=== PATIENT | female | born 1945 | race Caucasian/White ===

== ENCOUNTER 2024-11-30 22:05 | Inpatient (IN) ==
[2024-11-30] MEDS: LABETALOL HCL IV 5 MG/ML 20ML IV STA (22:48)
[2024-11-30 23:04] LABS: Basophils # (auto) 0.04 K/uL (0.00-0.20); Basophils % (auto) 0.5 %; Eosinophils # (auto) 0.14 K/uL (0.00-0.50); Eosinophils % (auto) 1.7 %; Hematocrit (blood only) 38.2 % (37.0-47.0); Hemoglobin 12.9 g/dl (12.0-16.0); Immature Granulocytes # (auto) 0.03 K/uL (0.01-0.20); Immature Granulocytes % (auto) 0.4 %; Lymphocytes # (auto) 1.93 K/uL (1.20-3.40); Lymphocytes % (auto) 23.5 %; Mean Corpuscular Hemoglobin 29.9 pg (25.0-34.0); Mean Corpuscular Hgb Conc 33.8 g/dL (32.0-36.0); Mean Corpuscular Volume 88.4 fL (80.0-100.0); Mean Platelet Volume 9.5 fL (9.4-12.4); Monocytes # (auto) 0.79 K/uL (0.11-0.59); Monocytes % (auto) 9.6 %; Neutrophils % (auto) 64.3 %; Platelet Count 335 K/uL (130-400); RDW Standard Deviation 42.5 fL (36.4-46.3); Red Blood Count 4.32 M/uL (4.20-5.40); White Blood Count 8.23 K/ul (4.8-10.8)
[2024-11-30 23:23] LABS: Calcium 10.3 mg/dl (8.6-10.3); Creatinine Clr Calc Pharmacy 36.3 ml/min
--- NOTE | 2024-11-30 23:27 | CT Scan Report ---
Exam(s): CT HEAD Without Contrast EXAM: CT Head Without Intravenous Contrast CLINICAL HISTORY: Reason for exam: de la cruz. TECHNIQUE: Axial computed tomography images of the head/brain without intravenous contrast. CTDI is 34 mGy and DLP is 624 mGy-cm. Automated exposure control was utilized for the study. A dose lowering technique was utilized adhering to the principles of ALARA. COMPARISON: None FINDINGS: Brain: No acute infarct or hemorrhage identified. No extra-axial fluid collection. No mass effect or midline shift. Scattered areas of hypoattenuation in the supratentorial white matter likely represent chronic small vessel ischemic changes. Ventricles and sulci: Prominence of the ventricles and sulci is likely secondary to cerebral volume loss. Bones: Degenerative changes of the temporomandibular joints. No bony lesion or acute fracture. Subcutaneous tissues: Normal. Sinuses: Normal. No air-fluid levels or mucosal thickening. Mastoid air cells: Normal. Orbits: Bilateral lens implants. Other: Atherosclerotic calcifications in the intracranial vasculature. IMPRESSION: 1. No acute intracranial abnormality. 2. Chronic small vessel ischemic changes and cerebral volume loss. Electronically signed by: Natalie Rushing M.D. 11/30/24 23:26 PM
[2024-11-30 23:30] LABS: Troponin I High Sensitivity 7.9 pg/ml (0-14)
[2024-11-30 23:33] LABS: INR 0.9 (0.9-1.1); Partial Thromboplastin Time 26 Seconds (21-31); Prothrombin Time 10.1 Seconds (9.0-12.0)
[2024-11-30] MEDS: carvediloL 6.25 MG TAB PO STA (23:43)
[2024-12-01] MEDS: LABETALOL HCL IV 5 MG/ML 20ML IV STA (00:14)
--- NOTE | 2024-12-01 00:52 | XRay Report ---
Exam(s): XR CXR 1 VIEW EXAM: XR Chest, 1 View CLINICAL HISTORY: Reason for exam: Chest pain, nonspecific. TECHNIQUE: Frontal view of the chest. COMPARISON: None FINDINGS: Hardware: None. Lungs/pleura: Normal. No focal consolidation. No pleural effusion or pneumothorax. Heart/mediastinum: Atherosclerotic changes of aorta. No cardiomegaly. Soft tissues: Unremarkable. Bones: No acute fracture. Upper abdomen: Normal. IMPRESSION: No acute disease identified. Electronically signed by: Natalie Rushing M.D. 12/01/24 00:51 AM
--- NOTE | 2024-12-01 01:22 | Emergency Department Note ---
History of Present Illness General Chief complaint: Hypertension Stated complaint: DIZZY,TINGLING,HTN Time Seen by Provider: 11/30/24 22:19 Source: family (Granddaughter who is a medic) History of Present Illness Provider complaint: Hypertension 79-year-old female presents emergency department for high blood pressure. Patient reports that earlier today she felt very dizzy and disoriented. She took her blood pressure and noticed it was very elevated. Patient reports she has been compliant with her blood pressure medication but did not take her evening dose today. She denies any chest pain difficulty breathing nausea vomiting diarrhea abdominal pain hematuria dysuria melena hematochezia. Home Medications Medication Instructions Recorded Confirmed Type Lactobacillus rhamnosus-Bifidobac. 1 cap PO DAILY 12/01/24 12/01/24 History animalis 3 billion cell capsule ([employer]) ascorbate calcium (vitamin C) 500 1,000 mg PO DAILY 12/01/24 12/01/24 History mg capsule aspirin 81 mg chewable tablet 81 mg PO DAILY 12/01/24 12/01/24 History benazepril 40 mg tablet 40 mg PO QAM 12/01/24 12/01/24 History calcium 600 mg (as carbonate)-vit 1 tab PO BID 12/01/24 12/01/24 History D3 20 mcg (800 unit) chewable tablet (Caltrate plus D) carvedilol 6.25 mg tablet 6.25 mg PO BID 12/01/24 12/01/24 History coenzyme Q10 100 mg capsule 100 mg PO DAILY 12/01/24 12/01/24 History (CoQ-10) cyanocobalamin (vitamin B-12) 1,000 mcg PO DAILY 12/01/24 12/01/24 History 1,000 mcg tablet (Vitamin B-12) dicyclomine 10 mg capsule 10 mg PO TID PRN cramping, 12/01/24 12/01/24 History diarrhea, abdominal pain elderberry fruit 200 mg capsule 500 mg PO DAILY 12/01/24 12/01/24 History ezetimibe 10 mg tablet 10 mg PO DAILY 12/01/24 12/01/24 History fenofibrate nanocrystallized 145 145 mg PO DAILY 12/01/24 12/01/24 History mg tablet fluticasone furoate 100 1 inh inhalation DAILY 12/01/24 12/01/24 History mcg-vilanterol 25 mcg/dose inhalation powder (Breo Ellipta) glucosamine-chondroitin 250 mg-200 1 tab PO DAILY 12/01/24 12/01/24 History mg tablet (Osteo Bi-Flex) yklfxcgo-cybedob-fyqo-lutein tablet 1 tab PO QAM 12/01/24 12/01/24 History nifedipine 60 mg tablet,extended 60 mg PO DAILY 12/01/24 12/01/24 History release pantoprazole 40 mg tablet,delayed 40 mg PO DAILY 12/01/24 12/01/24 History release sertraline 100 mg tablet 150 mg PO DAILY 12/01/24 12/01/24 History Allergies Allergy/AdvReac Type Severity Reaction Status Date / Time amoxicillin AdvReac Mild Vomiting Verified 12/01/24 01:19 Past Med/Surg History Problem List (Updated 12/01/24 @ 01:22 by Yony Tan MD) Hypertensive urgency (Acute) Medical History No pertinent family history HLD (hyperlipidemia) HTN (hypertension) Surgical History No pertinent past surgical history Social History Smoking Status: Former smoker Preferred Language: Armenian Feels Safe at Home: Yes Physical Exam Vital Signs Vital Signs - 24 hr 11/30/24 22:06 11/30/24 22:19 11/30/24 22:32 Temperature 36.8 C Temperature Source Temporal Artery Scan Pulse Rate 97 H 88 Pulse Rate [Apical] 88 Pulse Rhythm Regular Pulse Rhythm [Apical] Regular Pulse Strength Normal Pulse Strength [Apical] Normal Respiratory Rate 17 22 Respiratory Effort / Characteristics Non-Labored Spontaneous Non-Labored Spontaneous Respiratory Depth Normal Normal Respiratory Pattern Regular Regular Blood Pressure 215/94 H Blood Pressure [Right Arm] 214/118 H Blood Pressure Mean 134 Blood Pressure Mean [Right Arm] 150 Blood Pressure Position Sitting Blood Pressure Position [Right Arm] Lying Pulse Oximetry 96 98 Oxygen Delivery Method Room Air Room Air Sepsis Recent Fever Within 48 Hours No Sepsis New/Unexplained Change in Mental Status N/A Sepsis Action Taken by Nursing No Action Required 11/30/24 22:42 11/30/24 22:48 11/30/24 23:15 Temperature Temperature Source Pulse Rate 78 78 Pulse Rate [Apical] 68 Pulse Rhythm Regular Pulse Rhythm [Apical] Pulse Strength Pulse Strength [Apical] Respiratory Rate 16 16 Respiratory Effort / Characteristics Respiratory Depth Respiratory Pattern Blood Pressure 173/120 H Blood Pressure [Right Arm] 199/97 H Blood Pressure Mean Blood Pressure Mean [Right Arm] 131 Blood Pressure Position Blood Pressure Position [Right Arm] Pulse Oximetry 94 97 Oxygen Delivery Method Room Air Room Air Sepsis Recent Fever Within 48 Hours Sepsis New/Unexplained Change in Mental Status Sepsis Action Taken by Nursing 11/30/24 23:30 12/01/24 00:00 12/01/24 00:14 Temperature Temperature Source Pulse Rate 69 Pulse Rate [Apical] 67 67 Pulse Rhythm Pulse Rhythm [Apical] Pulse Strength Pulse Strength [Apical] Respiratory Rate 16 16 Respiratory Effort / Characteristics Respiratory Depth Respiratory Pattern Blood Pressure 184/107 H Blood Pressure [Right Arm] 195/84 H 199/87 H Blood Pressure Mean Blood Pressure Mean [Right Arm] 121 124 Blood Pressure Position Blood Pressure Position [Right Arm] Pulse Oximetry 95 97 Oxygen Delivery Method Room Air Room Air Sepsis Recent Fever Within 48 Hours Sepsis New/Unexplained Change in Mental Status Sepsis Action Taken by Nursing 12/01/24 00:14 12/01/24 00:43 12/01/24 00:43 Temperature Temperature Source Pulse Rate 68 Pulse Rate [Apical] 70 68 Pulse Rhythm Pulse Rhythm [Apical] Pulse Strength Pulse Strength [Apical] Respiratory Rate 14 16 Respiratory Effort / Characteristics Respiratory Depth Respiratory Pattern Blood Pressure 167/77 H Blood Pressure [Right Arm] 184/107 H 167/77 H Blood Pressure Mean Blood Pressure Mean [Right Arm] 132 107 Blood Pressure Position Blood Pressure Position [Right Arm] Pulse Oximetry 98 97 Oxygen Delivery Method Room Air Room Air Sepsis Recent Fever Within 48 Hours Sepsis New/Unexplained Change in Mental Status Sepsis Action Taken by Nursing 12/01/24 01:00 Temperature Temperature Source Pulse Rate Pulse Rate [Apical] 69 Pulse Rhythm Pulse Rhythm [Apical] Pulse Strength Pulse Strength [Apical] Respiratory Rate 16 Respiratory Effort / Characteristics Respiratory Depth Respiratory Pattern Blood Pressure Blood Pressure [Right Arm] 164/69 H Blood Pressure Mean Blood Pressure Mean [Right Arm] 100 Blood Pressure Position Blood Pressure Position [Right Arm] Pulse Oximetry 97 Oxygen Delivery Method Room Air Sepsis Recent Fever Within 48 Hours Sepsis New/Unexplained Change in Mental Status Sepsis Action Taken by Nursing Physical Exam GENERAL: oriented to person, place, and time. appears well-developed and well- nourished. HENT: Exam performed. - Head: Normocephalic and atraumatic. EYES: Conjunctivae and EOM are normal. Right eye exhibits no discharge. Left eye exhibits no discharge. No scleral icterus. NECK: Normal range of motion. Neck supple. No JVD present. CV: Normal rate, regular rhythm, normal heart sounds and intact distal pulses. There is no peripheral edema. Palpable radial pulses bue. PULM/CHEST: Effort normal and breath sounds normal. No respiratory distress. No stridor. no wheezes. no rales. ABD: The abdomen is soft. There is no tenderness. NEURO: Motor and sensation grossly intact. SKIN: Skin is warm and dry. He is not diaphoretic. PSYCH: normal mood and affect. Behavior is normal. Judgment and thought content normal. Course Course 2219: The patient was evaluated in room C12. A complete history and physical exam was performed Cardiac monitoring: An order was placed for continuous cardiac monitoring. The monitor shows a rate of 80 with sinus rhythm interpreted by me Patient systolic blood pressure greater than 215. Patient did not take her evening beta-gisela. Labetalol 10 mg IV push ordered for the patient. 2330: Patient remains hypertensive. CT of the head is unremarkable. Patient's home dose of carvedilol ordered for the patient. 0015: Patient remains hypertensive and states " still feeling very fuzzy." Additional labetalol 10 mg IV push ordered for patient. 0019: Vital signs stable. Patient's blood pressure has normalized. Labs and imaging are unremarkable. Discussed the possibility of discharge the patient home with close outpatient follow-up versus inpatient observation for hypertensive urgency and after discussion with the patient and family at bedside the patient elected to be admitted to the hospital for observation. Will discuss with [facility] hospitalist team. Administered Medications Discontinued Medications Carvedilol (Carvedilol 6.25 Mg Tab) 6.25 mg PO NOW STA Stop: 11/30/24 23:28 Last Admin: 11/30/24 23:43 Dose: 6.25 mg Documented By: MERARY Labetalol HCl (Labetalol Hcl Iv 5 Mg/Ml 20ml) 10 mg IV NOW STA Stop: 11/30/24 22:43 Last Admin: 11/30/24 22:48 Dose: 10 mg Documented By: TRELL Labetalol HCl (Labetalol Hcl Iv 5 Mg/Ml 20ml) 10 mg IV NOW STA Stop: 11/30/24 23:53 Last Admin: 12/01/24 00:14 Dose: 10 mg Documented By: AN Medical Decision Making Laboratory Data Attestation: I reviewed the patient's lab results. 11/30/24 22:28 11/30/24 22:28 Lab Results 11/30/24 Range/Units 22:28 WBC 8.23 (4.8-10.8) K/ul RBC 4.32 (4.20-5.40) M/uL Hgb 12.9 (12.0-16.0) g/dl Hct 38.2 (37.0-47.0) % MCV 88.4 (80.0-100.0) fL MCH 29.9 (25.0-34.0) pg MCHC 33.8 (32.0-36.0) g/dL RDW Std Deviation 42.5 (36.4-46.3) fL RDW Coeff of [place] 13.0 (11.5-14.5) % Plt Count 335 (130-400) K/uL MPV 9.5 (9.4-12.4) fL Immature Gran % (Auto) 0.4 % Neut % (Auto) 64.3 % Lymph % (Auto) 23.5 % [place] % (Auto) 9.6 % Eos % (Auto) 1.7 % Baso % (Auto) 0.5 % Neut # (Auto) 5.30 (1.40-6.50) K/uL Lymph # (Auto) 1.93 (1.20-3.40) K/uL [place] # (Auto) 0.79 H (0.11-0.59) K/uL Eos # (Auto) 0.14 (0.00-0.50) K/uL Baso # (Auto) 0.04 (0.00-0.20) K/uL Immature Gran # (Auto) 0.03 (0.01-0.20) K/uL PT 10.1 (9.0-12.0) Seconds INR 0.9 (0.9-1.1) APTT 26 (21-31) Seconds PTT Ratio 1.0 Sodium 139 (136-145) mmol/L Potassium 4.0 (3.5-5.1) mmol/L Chloride 105 (98-107) mmol/L Carbon Dioxide 27 (21-32) mmol/L Anion Gap 7 (3-11) BUN 26 H (6-23) mg/dl Creatinine 1.18 (0.6-1.2) mg/dl Est Cr Clr Drug Dosing 36.3 ml/min eGFR 46.69 BUN/Creatinine Ratio 22.0 H (10-20) Glucose 104 H (70-99(Fasting)) mg/dl Calcium 10.3 (8.6-10.3) mg/dl Troponin I High Sens 7.9 (0-14) pg/ml Lipase 42 (11-82) U/L Imaging Data Attestation: I personally reviewed and interpreted this imaging study as follows: My Impression: Chest x-ray negative. Airway clear. No pneumothorax. No consolidation. No cardiomegaly or cephalization.. No free air under the diaphragm. No fractures of the skeletal structures. Radiologist's Impression: Chest X-Ray 11/30/24 22:42 Exam(s): XR CXR 1 VIEW EXAM: XR Chest, 1 View CLINICAL HISTORY: Reason for exam: Chest pain, nonspecific. TECHNIQUE: Frontal view of the chest. COMPARISON: None FINDINGS: Hardware: None. Lungs/pleura: Normal. No focal consolidation. No pleural effusion or pneumothorax. Heart/mediastinum: Atherosclerotic changes of aorta. No cardiomegaly. Soft tissues: Unremarkable. Bones: No acute fracture. Upper abdomen: Normal. IMPRESSION: No acute disease identified. Electronically signed by: Natalie Rushing M.D. 12/01/24 00:[address] 11/30/24 22:42 Exam(s): CT HEAD Without Contrast EXAM: CT Head Without Intravenous Contrast CLINICAL HISTORY: Reason for exam: de la cruz. TECHNIQUE: Axial computed tomography images of the head/brain without intravenous contrast. CTDI is 34 mGy and DLP is 624 mGy-cm. Automated exposure control was utilized for the study. A dose lowering technique was utilized adhering to the principles of ALARA. COMPARISON: None FINDINGS: Brain: No acute infarct or hemorrhage identified. No extra-axial fluid collection. No mass effect or midline shift. Scattered areas of hypoattenuation in the supratentorial white matter likely represent chronic small vessel ischemic changes. Ventricles and sulci: Prominence of the ventricles and sulci is likely secondary to cerebral volume loss. Bones: Degenerative changes of the temporomandibular joints. No bony lesion or acute fracture. Subcutaneous tissues: Normal. Sinuses: Normal. No air-fluid levels or mucosal thickening. Mastoid air cells: Normal. Orbits: Bilateral lens implants. Other: Atherosclerotic calcifications in the intracranial vasculature. IMPRESSION: 1. No acute intracranial abnormality. 2. Chronic small vessel ischemic changes and cerebral volume loss. Electronically signed by: Natalie Rushing M.D. 11/30/24 23:26 PM ECG Data Attestation: I personally reviewed and interpreted this ECG as follows: Rate (beats per minute): 84 Rhythm: + normal sinus ECG Intervals/blocks: + Normal QRS, + Normal MO and + Normal QT-c ECG ST segments: + Normal ST segments MDM Narrative 2219: The patient was evaluated in room C12. A complete history and physical exam was performed Cardiac monitoring: An order was placed for continuous cardiac monitoring. The monitor shows a rate of 80 with sinus rhythm interpreted by me Patient systolic blood pressure greater than 215. Patient did not take her evening beta-gisela. Labetalol 10 mg IV push ordered for the patient. 2330: Patient remains hypertensive. CT of the head is unremarkable. Patient's home dose of carvedilol ordered for the patient. 0015: Patient remains hypertensive and states " still feeling very fuzzy." Additional labetalol 10 mg IV push ordered for patient. 0019: Vital signs stable. Patient's blood pressure has normalized. Labs and imaging are unremarkable. Discussed the possibility of discharge the patient home with close outpatient follow-up versus inpatient observation for hypertensive urgency and after discussion with the patient and family at bedside the patient elected to be admitted to the hospital for observation. Will discuss with [facility] hospitalist team. Impression & Plan Hypertensive urgency Discharge Plan Visit Data Chief Complaint: Hypertension Stated Complaint: DIZZY,TINGLING,HTN ED Provider: Yony Tan Discharge Problem: Hypertensive urgency Patient Disposition: Being Evaluated by Hospitalist Condition: Good Forms Stand Alone Forms: [employer] Prescriptions Prescriptions: No Action carvedilol 6.25 mg Tablet 6.25 mg PO BID Rx Instructions: must administer with a meal/food aspirin 81 mg Tablet,Chewable 81 mg PO DAILY benazepril 40 mg Tablet 40 mg PO QAM dicyclomine 10 mg Capsule 10 mg PO TID PRN (Reason: cramping, diarrhea, abdominal pain) Centrum Silver Ultra Women's Tablet 1 tab PO QAM coenzyme Q10 [CoQ-10] 100 mg Capsule 100 mg PO DAILY Mignon-C 500 mg Capsule 1,000 mg PO DAILY Elderberry 200 mg Capsule 500 mg PO DAILY fluticasone furoate-vilanterol [Breo Ellipta] 100-25 mcg/dose Blister With Device 1 inh INHALATION DAILY Caltrate 600 plus D 600 mg-20 mcg (800 unit) Tablet,Chewable 1 tab PO BID sertraline 100 mg tablet 150 mg PO DAILY Rx Instructions: UNABLE TO VERIFY W/ PATIENT USED [employer] pantoprazole 40 mg tablet,delayed release (DR/EC) 40 mg PO DAILY Rx Instructions: UNABLE TO VERIFY W/ PATIENT USED [employer] nifedipine 60 mg tablet extended release 60 mg PO DAILY Rx Instructions: UNABLE TO VERIFY W/ PATIENT USED [employer] ezetimibe 10 mg tablet 10 mg PO DAILY Rx Instructions: UNABLE TO VERIFY W/ PATIENT USED [employer] fenofibrate nanocrystallized 145 mg tablet 145 mg PO DAILY Rx Instructions: UNABLE TO VERIFY W/ PATIENT USED [employer] cyanocobalamin (vitamin B-12) [Vitamin B-12] 1,000 mcg Tablet 1,000 mcg PO DAILY glucosamine-chondroitin [Osteo Bi-Flex] 250-200 mg Tablet 1 tab PO DAILY [employer] 3 billion cell Capsule 1 cap PO DAILY Referrals Referrals: Lisette Diana DO [Primary Care Provider] -
--- NOTE | 2024-12-01 01:36 | History & Physical Report ---
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 Ms. Krystyna Castrejon, contact #[phone]. Text document was generated using [employer] voice recognition software. It may contain grammatical or spelling errors. Kindly contact undersigned for clarification of any documentation item in question. History of Present Illness Chief Complaint: High blood pressure Primary Care Provider: Lisette Diana DO History obtained from patient and records. 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 Patient experienced dizziness, fuzzy head sensation after visiting a friend last night. Denies chest pain, SOB. Compliant with home BP meds. Patient unaware of sleep apnea as she lives alone. Patient does not feel rested in the morning after 6 hours of sleep overnight. Occasional ibuprofen intake for transient leg cramps at night which bother her. Denies back pain or abdominal pain. Not responsive to tonic water prescribed by PCP. SBP 190 at home. Similar BP a few weeks ago related to missing some pills. SBP 215 upon arrival at the ER. IV labetalol and Coreg administered at the ER. 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 1 cap PO DAILY 12/01/24 12/01/24 History animalis 3 billion cell capsule (Think Sky) ascorbate calcium (vitamin C) 500 1,000 mg PO DAILY 12/01/24 12/01/24 History mg capsule aspirin 81 mg chewable tablet 81 mg PO DAILY 12/01/24 12/01/24 History benazepril 40 mg tablet 40 mg PO QAM 12/01/24 12/01/24 History calcium 600 mg (as carbonate)-vit 1 tab PO BID 12/01/24 12/01/24 History D3 20 mcg (800 unit) chewable tablet (Caltrate plus D) carvedilol 6.25 mg tablet 6.25 mg PO BID 12/01/24 12/01/24 History coenzyme Q10 100 mg capsule 100 mg PO DAILY 12/01/24 12/01/24 History (CoQ-10) cyanocobalamin (vitamin B-12) 1,000 mcg PO DAILY 12/01/24 12/01/24 History 1,000 mcg tablet (Vitamin B-12) dicyclomine 10 mg capsule 10 mg PO TID PRN cramping, 12/01/24 12/01/24 History diarrhea, abdominal pain elderberry fruit 200 mg capsule 500 mg PO DAILY 12/01/24 12/01/24 History ezetimibe 10 mg tablet 10 mg PO DAILY 12/01/24 12/01/24 History fenofibrate nanocrystallized 145 145 mg PO DAILY 12/01/24 12/01/24 History mg tablet fluticasone furoate 100 1 inh inhalation DAILY 12/01/24 12/01/24 History mcg-vilanterol 25 mcg/dose inhalation powder (Breo Ellipta) glucosamine-chondroitin 250 mg-200 1 tab PO DAILY 12/01/24 12/01/24 History mg tablet (Osteo Bi-Flex) ehjuapdr-iildihw-cjmw-lutein tablet 1 tab PO QAM 12/01/24 12/01/24 History nifedipine 60 mg tablet,extended 60 mg PO DAILY 12/01/24 12/01/24 History release pantoprazole 40 mg tablet,delayed 40 mg PO DAILY 12/01/24 12/01/24 History release sertraline 100 mg tablet 150 mg PO DAILY 12/01/24 12/01/24 History Past Med/Surg History Problem List (Updated 12/01/24 @ 04:33 by Az Boone MD) Hypertensive crisis Hypertensive urgency (Acute) Medical History No pertinent family history HLD (hyperlipidemia) HTN (hypertension) Surgical History No pertinent past surgical history Social History Smoking Status: Former smoker Preferred Language: Korean Feels Safe at Home: Yes Review of Systems Review of Systems: As per HPI, all other systems reviewed and negative Physical Exam Physical Exam: GENERAL: Comfortable, pleasant, slightly anxious, obese, no respiratory distress SKIN: Normal color, warm HEENT: [place] palpebral conjunctivae, no ptosis, moist buccal mucosa NECK : Supple, no tenderness CHEST : CTA, no tenderness HEART : RRR, systolic murmur ABDOMEN: Some distention, nontender EXTREMITIES : Minimal LE swelling with prominent varicosities, no LE tenderness, palpable pulses, no other conspicuous deformities noted NEUROLOGIC : Coherent, no facial asymmetry, no other gross focality Results & Data Results & Data Vital Signs (Past 12 Hours) Vital Signs Temp Pulse Pulse Resp BP BP Pulse Ox 12/01/24 01:00 69 16 164/69 H 97 12/01/24 00:43 68 16 167/77 H 97 12/01/24 00:43 68 167/77 H 12/01/24 00:14 70 14 184/107 H 98 12/01/24 00:14 69 184/107 H 12/01/24 00:00 67 16 199/87 H 97 11/30/24 23:30 67 16 195/84 H 95 11/30/24 23:15 68 16 199/97 H 97 11/30/24 22:48 78 173/120 H 11/30/24 22:42 78 16 94 11/30/24 22:32 88 22 214/118 H 98 11/30/24 22:19 88 11/30/24 22:06 36.8 C 97 H 17 215/94 H 96 O2 Del Method 12/01/24 01:00 Room Air 12/01/24 00:43 Room Air 12/01/24 00:43 12/01/24 00:14 Room Air 12/01/24 00:14 12/01/24 00:00 Room Air 11/30/24 23:30 Room Air 11/30/24 23:15 Room Air 11/30/24 22:48 11/30/24 22:42 Room Air 11/30/24 22:32 Room Air 11/30/24 22:19 11/30/24 22:06 Room Air Laboratory Results Laboratory Results WBC 8.23 K/ul (4.8-10.8) 11/30/24 22:28 RBC 4.32 M/uL (4.20-5.40) 11/30/24 22:28 Hgb 12.9 g/dl (12.0-16.0) 11/30/24 22:28 Hct 38.2 % (37.0-47.0) 11/30/24 22:28 MCV 88.4 fL (80.0-100.0) 11/30/24 22: MCH 29.9 pg (25.0-34.0) 11/30/24 22: MCHC 33.8 g/dL (32.0-36.0) 11/30/24 22: RDW Std Deviation 42.5 fL (36.4-46.3) 11/30/24 22: RDW Coeff of Bernardino 13.0 % (11.5-14.5) 11/30/24 22: Plt Count 335 K/uL (130-400) 11/30/24 22:28 MPV 9.5 fL (9.4-12.4) 11/30/24 22:28 Immature Gran % (Auto) 0.4 % 11/30/24 22:28 Neut % (Auto) 64.3 % 11/30/24 22:28 Lymph % (Auto) 23.5 % 11/30/24 22:28 Hawkins % (Auto) 9.6 % 11/30/24 22:28 Eos % (Auto) 1.7 % 11/30/24 22:28 Baso % (Auto) 0.5 % 11/30/24 22:28 Neut # (Auto) 5.30 K/uL (1.40-6.50) 11/30/24 22:28 Lymph # (Auto) 1.93 K/uL (1.20-3.40) 11/30/24 22: Hawkins # (Auto) 0.79 K/uL (0.11-0.59) H 11/30/24 22: Eos # (Auto) 0.14 K/uL (0.00-0.50) 11/30/24 22: Baso # (Auto) 0.04 K/uL (0.00-0.20) 11/30/24: Immature Gran # (Auto) 0.03 K/uL (0.01-0.20) 11/30/24: PT 10.1 Seconds (9.0-12.0) 11/30/24: INR 0.9 (0.9-1.1) 11/30/24: APTT 26 Seconds (21-31) 11/30/24: PTT Ratio 1.0 11/30/24: Sodium 139 mmol/L (136-145) 11/30/24: Potassium 4.0 mmol/L (3.5-5.1) 11/30/24: Chloride 105 mmol/L (98-107) 11/30/24: Carbon Dioxide 27 mmol/L (21-32) 11/30/24: Anion Gap 7 (3-11) 11/30/24: BUN 26 mg/dl (6-23) H 11/30/24: Creatinine 1.18 mg/dl (0.6-1.2) 11/30/24: Est Cr Clr Drug Dosing 36.3 ml/min 11/30/24: eGFR 46.69 11/30/24: BUN/Creatinine Ratio 22.0 (10-20) H 11/30/24: Glucose 104 mg/dl (70-99(Fasting)) H 11/30/24: Calcium 10.3 mg/dl (8.6-10.3) 11/30/24: Troponin I High Sens 7.9 pg/ml (0-14) 11/30/24: Lipase 42 U/L (11-82) 11/30/24 22: Impressions Chest X-Ray 11/30/24 22:42 Exam(s): XR CXR 1 VIEW EXAM: XR Chest, 1 View CLINICAL HISTORY: Reason for exam: Chest pain, nonspecific. TECHNIQUE: Frontal view of the chest. COMPARISON: None FINDINGS: Hardware: None. Lungs/pleura: Normal. No focal consolidation. No pleural effusion or pneumothorax. Heart/mediastinum: Atherosclerotic changes of aorta. No cardiomegaly. Soft tissues: Unremarkable. Bones: No acute fracture. Upper abdomen: Normal. IMPRESSION: No acute disease identified. Electronically signed by: Natalie Rushing M.D. 12/01/24 00:[address] 11/30/24 22:42 Exam(s): CT HEAD Without Contrast EXAM: CT Head Without Intravenous Contrast CLINICAL HISTORY: Reason for exam: de la cruz. TECHNIQUE: Axial computed tomography images of the head/brain without intravenous contrast. CTDI is 34 mGy and DLP is 624 mGy-cm. Automated exposure control was utilized for the study. A dose lowering technique was utilized adhering to the principles of ALARA. COMPARISON: None FINDINGS: Brain: No acute infarct or hemorrhage identified. No extra-axial fluid collection. No mass effect or midline shift. Scattered areas of hypoattenuation in the supratentorial white matter likely represent chronic small vessel ischemic changes. Ventricles and sulci: Prominence of the ventricles and sulci is likely secondary to cerebral volume loss. Bones: Degenerative changes of the temporomandibular joints. No bony lesion or acute fracture. Subcutaneous tissues: Normal. Sinuses: Normal. No air-fluid levels or mucosal thickening. Mastoid air cells: Normal. Orbits: Bilateral lens implants. Other: Atherosclerotic calcifications in the intracranial vasculature. IMPRESSION: 1. No acute intracranial abnormality. 2. Chronic small vessel ischemic changes and cerebral volume loss. Electronically signed by: Natalie Rushing M.D. 11/30/24 23:26 PM Diagnostic Findings EKG as per my interpretation :Rate 85, NSR, LAD, LAFB, LVH, no ischemia
[2024-12-01] MEDS ORDERED: amLODIPine BESYLATE 5 MG TAB PO STA (02:10)
[2024-12-01] MEDS: LABETALOL HCL 100 MG TAB PO STA (02:34)
[2024-12-01] MEDS ORDERED: ACETAMINOPHEN 325 MG TAB PO PRN (02:36)
[2024-12-01] MEDS ORDERED: PROMETHAZINE 6.25 MG/50.25 ML BAG IV PRN (02:36)
[2024-12-01] MEDS ORDERED: oxyCODONE HCL IR 5 MG TAB (IMMEDIATE RELEASE) PO PRN (02:36)
[2024-12-01 02:46] LABS: Thyroid Stimulating Hormone 7.053 uIu/ml (0.300-4.500)
[2024-12-01] MEDS: GABAPENTIN 100 MG CAP PO STA (03:14)
[2024-12-01 03:21] LABS: T4 Free Thyroxine 0.94 ng/dl (0.61-1.60)
--- OUTSIDE RECORDS SUMMARY | 2024-12-01 03:57 | External Medical Summary ---
Author Name Unknown Address Unknown Organization : Laboratory Report Ordering Provider Test Date Status FRANK MUNGUIA 09/30/2024 10:06:37 Final Observation Date Value Abnormality Reference (Units ) Status 1,25-Dihydroxyvitamin D [Mass/volume] in Serum or Plasma 09/30/2024 10:06:37 80 Above high normal 18-72 (pg/mL) Final Calcitriol [Mass/volume] in Serum or Plasma 09/30/2024 10:06:37 80 (pg/mL) Final 1,25-Dihydroxyvitamin D2 [Mass/volume] in Serum or Plasma 09/30/2024 10:06:37 <8 (pg/mL) Final Vitamin D3, 1,25(OH)2 indica sofie both endogenous
production and supplementation. Vitamin D2, 1,25(OH)2
is an indicator of exogenous sources, such as diet or
supplementation. Interpretation and therapy are based
on measurement of Vitamin D,1,25(OH)2, Total.
This test was developed and its analytical
performance characteristics have been determined
by [facility], [place], [place].
It has not been cleared or approved by the FDA. This
assay has been validated pursuant to the CLIA
regulations and is used for clinical purposes.

Test Performed at:
[facility]
[id number] [facility]
[place] [address]
Chuy Marshall M.D., Ph.D.,Director of Laboratories Performing Location
--- OUTSIDE RECORDS SUMMARY | 2024-12-01 03:57 | External Medical Summary ---
Author Name Unknown Address Unknown Organization K01:[facility] [place] - [address] [place] [address] Laboratory Report Ordering Provider Test Date Status EZRAMARIE 09/30/2024 10:06:37 Final Observation Date Value Abnormality Reference (Units ) Status Calcium.ionized [Moles/volume] in Serum or Plasma by Ion-selective membrane electrode (ISE) 09/30/2024 10:06:37 1.34 Above high normal 1.13-1.32 (mmol/L) Final This test was developed and its performance characteristics dtermined by [employer]. It has not been cleared or approved by the US Food and Drug Administration Performing Location [facility] [place] - [address] [place] [address]
--- OUTSIDE RECORDS SUMMARY | 2024-12-01 03:57 | External Medical Summary | Summary of Care ---
Author Name Unknown Organization [facility] Address [address] [facility] [address] Phone [phone] Care Team Providers Care Yard Operator Name Role Phone Ezra Marie DO Primary Care Provider + [phone] Reason for Visit * Reason Comments Medication Refill Encounter Details Date Type Department Care Team (Late st Contact Info) Description 09/27/2024 Refill Family Medicine [address] [phone] Ezra Marie [address] [place] [address] Allergies Active Allergy Reactions Criticality Noted Date Comments Amoxicillin Nausea/vomiting Low 10/07/2013 Statins 01/30/2024 Joint/muscle pain documented as of this encounter (statuses as of 09/29/2024) Medications CALTRATE 600+D 600-400 MG-UNIT PO CHEW Take 1 Tablet by mouth in the morning and 1 Tablet before bedtime. Active OSTEO BI-FLEX ADV DOUBLE ST PO TABS 1 tablet daily Active CENTRUM SILVER ULTRA WOMENS PO TABS Take 1 Tablet by mouth in the morning. Active Elderberry 500 MG Oral Capsule Take by mouth. Active Benazepril HCl 40 MG Oral Tablet TAKE ONE TABLET BY MOUTH IN THE MORNING 100 Tablet 2 09/17/2024 4:52 PM EST 4 02/29/20 25 Active Breo Ellipta 100-25 MCG/ACT Inhalation Aerosol Powder Breath ActivatedIndicati ons:Mild persistent asthma without complication INHALE ONE PUFF BY MOUTH EVERY DAY 180 Each 3 09/08/2024 6:32 PM EST 4 Active Ezetimibe 10 MG Oral Tablet (Zetia) Take 1 Tablet by mouth daily in the morning. 100 Tablet 2 08/11/2024 7:10 AM EST 4 Active Fenofibrate 145 MG Oral Tablet (Tricor) Take 1 Tablet by mouth in the morning. 90 Tablet 2 08/01/2024 1:58 PM EST 4 Active Sertraline HCl 100 MG Oral Tablet (Zoloft) TAKE ONE AND ONE-HALF TABLETS BY MOUTH IN THE MORNING 135 Tablet 1 07/21/2024 9:46 AM EST 4 07/17/20 25 Active ZyrTEC Allergy 10 MG Oral Capsule (Cetirizine HCl) Take 1 Capsule by mouth in the morning. Active Carvedilol 6.25 MG Oral Tablet (Coreg) TAKE ONE TABLET BY MOUTH TWICE A DAY 200 Tablet 3 09/24/2024 6:13 PM EST 5 Active NIFEdipine ER 60 MG Oral Tablet Extended Release 24 Hour (Adalat CC) Take 1 Tablet by mouth in the morning. 100 Tablet 1 5 Active NIFEdipine ER 60 MG Oral Tablet Extended Release 24 Hour (Adalat CC) Take 1 Tablet by mouth in the morning. 100 Tablet 1 06/20/2024 7:05 AM EST 4 09/28/19 25 Discontinu ed(Refill) documented as of this encounter (statuses as of 09/29/2024) Active Problems Problem Noted Date Diagnosed Date History of Clostridioides difficile colitis 08/30 Gastroesophageal reflux disease without esophagi tis 01/30/2024 Hyperlipidemia with target LDL less than 100 12/2022 History of breast cancer 12/26/2022 Mild persistent asthma without complication 11/29 Osteopenia of both hips 12/26/2022 Anxiety and depression 12/26/2022 HTN, goal below 140/90 12/26/2022 [facility] current use of therapeutic drug 2022 documented as of this encounter (statuses as of 09/29/2024) Resolved Problems Problem Noted Date Diagnosed Date Resolved Date Microalbuminuria 07/04/2023 01/30/2024 Malignant neoplasm of upper- outer quadrant of female breast 10/07/2013 12/26/2022 documented as of this encounter (statuses as of 09/29/2024) Immunizations Name Administration Dates Next Due COVID-19 mRNA, LNP-s, No Pre serve, 2-Dose Series (Moderna) 12/16/2020,11/17/2020 Pneumococcal Conjugate Vacc, 13 Valent (Prevnar) 06/17/2018 Pneumococcal Polysaccharide PPV23 (Pneumovax) ,06/28/2010 RSV Vac., Recomb, Adjuvant, PF,0.5 Ml (Arexvy) 0 09/12/2024 Seasonal Influenza, High Dos e, Trivalent, PF, IM (Fluzone HD) 04/29/2024 Seasonal Influenza, Quadrivalent Hd (Fluzone Hd) 07/04/2023 Seasonal Influenza, Quadrivalent Hd, 65+ Yrs 04/2022 TDAP, Age 7 and older, IM (Adacel) 12/26/2022 Varicella Zoster Vaccine (Adult) 04/29/2024 Zoster Vaccine Recombinant (Shingrix) 02/04/2024 documented as of this encounter Social History Tobacco Use Types Packs/Day Years Used Date Smoking Tobacco: Former Cigarettes 1 12 - 2002 Smokeless Tobacco: Never Quit: 07/30/2003 Alcohol Use Standard Drinks/Week Comments Not Currently 0 (1 standard drink = 0.6 oz pur e alcohol) rare wine PHQ-2 Answer Date Recorded PHQ Adult Total Score 0 03/04/2024 Hunger Vital Sign Answer Date Recorded Within the past 12 months, y ou worried that your food would run out before you got the money to buy more. Never true 03/04/20 24 Within the past 12 months, t he food you bought just didn't last and you didn't have money to get more. Never true 03/04/2024 Childcare Answer Date Recorded Do you feel overwhelmed with taking care of a child, family member or friend? No 03/04/2024 Does your family need help f inding childcare? (Household - for ages 0-17 years) Not on file 03/04/2024 Clothing Answer Date Recorded Have you been unable to get clothing when it was really needed? No 03/04/2024 Is your family able to get c lothes or diapers when needed? (Household - for ages 0-17 years) Not on file 03/04/2024 Personal Safety Answer Date Recorded Do you feel unsafe or have concerns for your saf ety? No 03/04/2024 Do you have concerns for you r family's safety? (Household - for ages 0-17 years) Not on file 03/04/2024 Utilities Answer Date Recorded Do you have trouble paying y our heating, water, or electric bill? No 03/04/2024 Is your family able to pay t he heat, water, or electric bill? (Household - for ages 0-17 years) Not on file 03/04/2024 Does your family have access to good internet? (Household - for ages 0-17 years) Not on file 03/04/2024 Employment Status Answer Date Recorded Are you unemployed or without regular income? No 03/04/2024 Does the household have a re gular source of income? (Household - for ages 0-17 years) Not on file 03/04/2024 Social Connections Answer Date Recorded How often do you feel lonely or isolated from th ose around you? Never 03/04/2024 Financial Resource Strain Answer Date R ecorded Do you have any trouble payi ng for your medications, or do you think you might in the future? No 03/04/2024 Does your family have troubl e paying for medicine? (Household - for ages 0-17 years) Not on file 03/04/2024 Transportation Needs Answer Date Record ed Do you have trouble getting a ride to medical visits or work? (Adult - for ages 18 years and over) Not on file 03/04/2024 Does your family have a hard time getting a ride to doctors visits? (Household - for ages 0-17 years) Not on file 03/04/2024 Has lack of transportation k ept you from medical appointments, meetings, work, or from getting things needed for daily living? Check all that apply. No 03/04/2024 Do you (or your family) have trouble finding or paying for a ride (transportation)? (Household - for ages 0-17 years) Not on file 03/04/2024 Housing Stability Answer Date Recorded Do you currently live in a s helter or have no steady place to sleep at night? No 03/04/2024 Do you think you are at risk of becoming homeless? (Adult - for ages 18 years and over) Not on file 03/04/2024 Does your family worry about paying for your home or becoming homeless? (Household - for ages 0-17 years) Not on file 0 03/04/2024 Are you homeless or worried that you might be in the future? No 03/04/2024 Are you (or your family) anibal eless or worried that you might be in the future? (Household - for ages 0-17 years) Not on file Food Insecurity Answer Date Recorded Do you need food for this week? No 03/04/2024 Are you able to get enough f ood for your family? (Household - for ages 0-17 years) Not on file 03/04/2024 Does your family need food t his week? (Household - for ages 0-17 years) Not on file 03/04/2024 Do you always have enough fo od for your family? (Household - for ages 0-17 years) Not on file 03/04/2024 Food Insecurity Answer Date Recorded Within the past 12 months, y ou worried that your food would run out before you got the money to buy more. Never true 03/04/20 24 Within the past 12 months, t he food you bought just didn't last and you didn't have money to get more. Never true 03/04/2024 Do you need food for this week? 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 Not on file Not on file documented as of this encounter Miscellaneous Notes * Telephone Encounter - Olive Go, [facility] - 09/29/2024 10:28 AM EST Signed Prescriptions: Disp Refills NIFEdipine ER 60 MG Oral Tablet Extended R*100 Ta*1 Sig: Take 1 Tablet by mouth in the morning.Authorizing Provider: EZRA MARIEOrdering User: OLIVE GO documented in this encounter Plan of Treatment Upcoming Encounters Date Type Department Care Team (Latest Contact Info) Description 12/26/2024 2:30 PM EDT Hospital Encounter ENDO [facility], Endoscopy Room [facility] [address] [place] [phone] Dom Negron MD [address] [place] [address] 12/26/2024 2:30 PM EDT - 12/26/2024 3:00 PM EDT Surgery ENDO [facility], Endoscopy Room [facility] [address] [place] [phone] Dom Negron MD [address] [place] [address] COLONOSCOPY FLEXIBLE PROXIMAL DIAGNOSTIC 03/09/2025 8:30 AM EDT Nurse Only Ancillary [address] [place] [phone] [place], Nurse [address] [place] [address] 04/10/2025 8:50 AM EDT Office Visit Family Medicine [address] [place] [phone] Ezra Marie, [address] [place] [address] [place] [id number] Scheduled Procedures Name Priority Associated Diagnoses Date/Ti me COLONOSCOPY FLEXIBLE PROXIMA L DIAGNOSTIC Recall Bowel habit changes 12/26/2024 2:30 PM EDT Health Maintenance Due Date Last Done Comments *SPIROMETRY ONCE FOR ASTHMA-ADULT 12/29/2022 COVID-19 Vaccine ( season) 2024 12/16/2020, 11/17/2020 Zoster Vaccines (2 of 2) 06/24/2024 04/29/2024, 07/0 02/2024 Adult Wellness Visit 03/04/2025 03/04/2024, 03/02/20 23 Depression Monitoring 03/04/2025 03/04/2024 GFR 08/01/2025 08/01/2024, 12/28, 12/26/2022, Additional history exists Albumin/Creatinine Ratio 12/26/2025 12/26/2022 DXA Scan 02/15/2029 02/15/2022, 01/28, 02/08/2022, Additional history exists DTap/Tdap Vaccines (2 - Td or Tdap) 12/26/2032 12/26/2022 Pneumococcal Vaccine: 50+ Years Completed 06/17/2018, 06/02/2016, 06/28/2010 Influenza Vaccine (FLU shot) Completed 07/2023, 07/04/2023, 06/08/2022 HPV (Gardasil) Vaccine Aged Out No lo nger eligible based on patient's age to complete this topic Hepatitis B Vaccine Aged Out No longe r eligible based on patient's age to complete this topic MENINGOCOCCAL (MENACTRA/MENVEO) Aged Out No longer eligible based on patient's age to complete this topic Meningitis B Vaccine (Bexsero/Trumemba) Aged Out No longer eligible based on patient's age to complete this topic documented as of this encounter Medical Devices Implanted Type Area Volunteer Assistant Device Identifier Shelf Expiration Date Model / Serial / Lot Lens Intraoc 22.0 - [id number] - [id number] Implanted:Qty: 1 on 06/23/2019 by Darrel Garza MD at OR [facility] Left: Eye [employer] 01/27/2024 [id number] / [id number] / Lens Intraoc 20.5 - [id number] - [id number] Implanted:Qty: 1 on 07/01/2019 by Darrel Garza MD at [facility] Right: Eye [employer] 01/27/2024 [id number] / [id number] / [id number] documented as of this encounter Additional Health Concerns Infection Onset Date Last Indicated Resolved Time C. difficile 08/12/2024 08/12/2024 documented as of this encounter Care Teams Yard Operator Relationship Specialty Start Date End Date Ezra Marie DO [address] [place] [address] [place] [phone] PCP - General Internal Medicine 12/26/22 documented as of this encounter
--- OUTSIDE RECORDS SUMMARY | 2024-12-01 03:57 | External Medical Summary | Summary of Care ---
Author Name Unknown Organization [facility] Address [address] [facility] [place] [address] Phone [phone] Care Team Providers Care Medical Lab Tech Instructor Name Role Phone Lisette Diana DO Primary Care Provider [phone] Reason for Visit * Reason Comments NEW PATIENT * Evaluate & Treat - Unlimited Visits (Within 10 days (routine)) - Authorized Specialty Diagnoses / Procedures Referred By Contac t Referred To Contact Endocrinology/Metabolism / Endocrinology Diagnoses Hypercalcemia Lisette Diana DO [address] [place] [address] [place] [address] Phone: tel: fax: Referral ID Status Reason Start Date Expiration Date Visits Requested Visits Authorized [id number] Authorized Specialty Services Required 10/21/[phone] Encounter Details Date Type Department Care Team (Late st Contact Info) Description 10/22/2024 2:20 PM EDT Office Visit Endocrinology [address] [place] [phone] Casa Kenney MD [address] [place] [address] Hypercalcemia* Allergies Active Allergy Reactions Criticality Noted Date Comments Amoxicillin Nausea/vomiting Low 10/07/2013 Statins 01/30/2024 Joint/muscle pain documented as of this encounter (statuses as of 10/22/2024) Medications CALTRATE 600+D 600-400 MG-UNIT PO CHEW Take 1 Tablet by mouth in the morning and 1 Tablet before bedtime. Active OSTEO BI-FLEX ADV DOUBLE ST PO TABS 1 tablet daily Active CENTRUM SILVER ULTRA WOMENS PO TABS Take 1 Tablet by mouth in the morning. Active Elderberry 500 MG Oral Capsule Take by mouth. Active Breo Ellipta 100-25 MCG/ACT Inhalation Aerosol Powder Breath ActivatedIndicati ons:Mild persistent asthma without complication INHALE ONE PUFF BY MOUTH EVERY DAY 180 Each 3 10/06/2024 2:57 PM EDT 4 Active Ezetimibe 10 MG Oral Tablet [...] MOUTH IN THE MORNING 135 Tablet 1 10/14/2024 9:57 AM EDT 4 07/17/20 25 Active ZyrTEC Allergy 10 [...] mouth in the morning. 100 Tablet 1 10/01/2024 9:39 AM EST 5 Active Benazepril HCl 40 MG Oral Tablet TAKE ONE TABLET BY MOUTH IN THE MORNING 100 Tablet 2 5 10/02/19 26 Active documented as of this encounter (statuses as of 10/22/2024) Active Problems Problem Noted Date Diagnosed Date History of Clostridioides difficile colitis 08/30 Gastroesophageal reflux disease without esophagi tis 01/30/2024 Hyperlipidemia with target LDL less than 100 12/2022 History of breast cancer 12/26/2022 Mild persistent asthma without complication 11/29 Osteopenia of both hips 12/26/2022 Anxiety and depression 12/26/2022 HTN, goal below 140/90 12/26/2022 prison current use of therapeutic drug 2022 documented as of this encounter (statuses as of 10/22/2024) Resolved Problems Problem Noted Date Diagnosed Date Resolved Date Microalbuminuria 07/04/2023 01/30/2024 Malignant neoplasm of upper- outer quadrant of female breast 10/07/2013 12/26/2022 documented as of this encounter (statuses as of 10/22/2024) Immunizations Name Administration Dates Next Due COVID-19 [...] Date Smoking Tobacco: Former Cigarettes 1 12 1 991 - 2002 Smokeless Tobacco: Never Quit: 07/30/2003 [...] 03/04/2024 Does the household have a re lar source of income? 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 Not on file Not on file documented as of this encounter Last Filed Vital Signs Vital Sign Reading Time Taken Comments Blood Pressure 150/70 10/22/2024 1:59 PM EDT Pulse 85 10/22/2024 1:59 PM EDT Temperature - - Respiratory Rate 18 10/22/2024 1:59 PM EDT Oxygen Saturation - - Inhaled Oxygen Concentration - - Weight 75.8 kg (167 lb 3.2 oz) 10/22/2024 1:59 P M EDT Height 158.8 cm (5' 2.5") 10/22/2024 1:59 PM EDT Body Mass Index 30.09 10/22/2024 1:59 PM EDT documented in this encounter Patient Instructions * Patient Instructions* Casa Kenney MD - 10/22/2024 2:53 PM EDT Keep yourself well hydrated. You can have up to 3 servings of dietary calcium daily. Hold off on vitamin-D for now. Have blood work in 3 months after overnight fast. Further plan to be discussed based on test results. Follow-up in 6 months. documented in this encounter Progress Notes * Kamla Poon DO - 10/22/2024 1:55 PM EDT Images from the original note were not included. Date of service: 10/22/2024 CC Referred by: Lisette Diana DO HPI Verónica Hoffmann is a 79 year old female PMHx Breast cancer Asthma Osteopenia, on calcium Anxiety HTN HLD GERD Patient is presenting as a referral from PCP for hypercalcemia. She was found to have hypercalcemiaon 3 separate occasions. PTH low. She does take caltrate vit D3 daily, levels found to be 75. However, her 1,25 Vit D was found to be high, 80. Had stopped vitamin D in August however repeat calcium ionized was high. Drinks a lot of water (75-80 oz). Urinates a lot but this has been constant, as she drinks a lot. No diarrhea/constipation, abdominal pain. Sometimes forgets what she talked about but no confusion out of the ordinary. This has been ongoing for years. No history of kidney stones. No dysuria, frequency. Has been having some urinary urgency for about a year. Has been fatigued for a couple years, andhas been getting worse within the last 6-8 months. 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 Sleeps okay for the most part but gets up once to use the bathroom. Unsure if she snores. She does not wake up gasping for air. Does not have a bed partner so unsure if she has apneic times. When wakes up does not feel refreshed and does fall asleep whenjust sitting. Weight stable over a year. No fevers, night sweats. No cough. No family history of endocrine disorders. Mother had lymphoma in 80s. 20 years ago Had breast cancer s/p lumpectomy, radiation. ROS: As per HPI and all other systems reviewed and negative. PMH Past Medical History: Diagnosis Date Anxiety and depression 12/26/2022 Breast cancer (HCC) Coronary artery disease History of breast cancer 12/26/2022 HTN, goal below 140/90 12/26/2022 Hypertension Mild persistent asthma without complication 12/26/2022 Osteoarthritis Osteopenia of both hips 12/26/2022 PSH Past Surgical History: Procedure Laterality Date CARDIAC CATH INJ. FOR CORONARY ANGIOGRAPHY FOREARM/WRIST SURGERY NEC Right 07/2023 [facility]OC MASTECTOMY,PARTIAL, W/AXIL LYMPHADENECTOMY REMOVE CATARACT, INSERT LENS PROSTH Left 06/23/2019 left EXTRACAPSULAR CATARACT REMOVAL WITH INTRAOCULAR LENS performed by Darrel Garza MD at [facility] REMOVE CATARACT, INSERT LENS PROSTH Right 07/01/2019 right EXTRACAPSULAR CATARACT REMOVAL WITH INTRAOCULAR LENS performed by Darrel Garza MD at OR [facility] TOTAL ABD HYSTERECTOMY W/WO REMOVAL OF TUBE(S) 1996 MEDS Current Outpatient Medications Medication Sig Dispense Refill CALTRATE 600+D 600-400 MG-UNIT PO CHEW Take 1 Tablet by mouth in the morning and 1 Tablet before bedtime. OSTEO BI-FLEX ADV DOUBLE ST PO TABS 1 tablet daily CENTRUM SILVER ULTRA WOMENS PO TABS Take 1 Tablet by mouth in the morning. Elderberry 500 MG Oral Capsule Take by mouth. Breo Ellipta 100-25 MCG/ACT Inhalation Aerosol Powder Breath Activated INHALE ONE PUFF BY MOUTH EVERY DAY 180 Each 3 Ezetimibe 10 MG Oral Tablet (Zetia) Take 1 Tablet by mouth daily in the morning. 100 Tablet 2 Fenofibrate 145 MG Oral Tablet (Tricor) Take 1 Tablet by mouth in the morning. 90 Tablet 2 Sertraline HCl 100 MG Oral Tablet (Zoloft) TAKE ONE AND ONE-HALF TABLETS BY MOUTH IN THE MORNING 135 Tablet 1 ZyrTEC Allergy 10 MG Oral Capsule (Cetirizine HCl) Take 1 Capsule by mouth in the morning. Carvedilol 6.25 MG Oral Tablet (Coreg) TAKE ONE TABLET BY MOUTH TWICE A DAY 200 Tablet 3 NIFEdipine ER 60 MG Oral Tablet Extended Release 24 Hour (Adalat CC) Take 1 Tablet by mouth in the morning. 100 Tablet 1 Benazepril HCl 40 MG Oral Tablet TAKE ONE TABLET BY MOUTH IN THE MORNING 100 Tablet 2 No current facility-administered medications for this visit. SH Social History Tobacco Use Smoking status: Former Current packs/day: 0.00 Average packs/day: 1 pack/day for 12.0 years (12.0 ttl pk-yrs) Types: Cigarettes Start date: 1990 Quit date: 2002 Years since quittin.2 Smokeless tobacco: Never Substance Use Topics Alcohol use: Not Currently Comment: rare wine Vaping/E-Cigarette Use Vaping/E-Cigarette Use Never User Vaping/E-Cigarette Substances Vaping/E-Cigarette Devices FH Family History Problem Relation Name Age of Onset Cancer Mother lymphoma Heart Disorder Father [place] Heart Disorder Sister [place] Stroke Brother Stroke Brother No Past Hx Brother No Past Hx Brother No Past Hx Daughter No Past Hx Son ROS As per HPI. Remainder of systems reviewed and negative. PE BP 150/70 (BP Site: Right Arm, BP Position: Sitting, BP Cuff Size: Regular) | Pulse 85 | Resp 18 | Ht 1.588 m (5' 2.5") | Wt 75.8 kg (167 lb 3.2 oz) | BMI 30.09 kg/m² | BSA 1.83 m² GEN: pleasant, well-appearing. EYES- sclera non icteric ENT- ears non deformed NECK- no cervical lymphadenopathy, no goiter palpated CV-RRR, no peripheral edema. PULM- CTAB with normal expansion. ABD- soft, nt/nd. SKIN- normal temperature and texture. NEURO- no tremor, no focal deficits PSYCH- A&Ox3. Normal mood and affect. MSK- Normal bulk/tone. RECORDS I reviewed the available medical records and have summarized the relevant information per HPI above. LABS Latest Reference Range & Units 09/30/24 10:06 Calcium, Ionized, Whole Blood 1.13 - 1.32 mmol/L 1.34 (H) Latest Reference Range & Units 09/12/24 10:04 CALCIUM 8.4 - 10.2 mg/dL 10.6 (H) Latest Reference Range & Units 09/12/24 10:04 PTH 15 - 65 pg/mL 11 (L) Latest Reference Range & Units 09/30/24 10:06 Pth-Related Protein (PTH-RP) 11 - 20 pg/mL 12 Latest Reference Range & Units 09/12/24 10:04 25-Hydroxy Vitamin D >19 ng/mL 75 IMAGING Mammo 12/2023 Bilateral There are round and rim calcifications seen in both breasts. Compared to the previous study, there are no significant changes. There is no evidence of suspicious masses, calcifications, or other abnormal findings. Impression Bilateral No mammographic evidence of malignancy. Assessment & Plan Hypercalcemia (Primary) - CALCIUM; Future; Expected date: 01/22/2025 - PTH; Future; Expected date: 01/22/2025 - 25-HYDROXY VITAMIN D; Future; Expected date: 01/22/2025 - 1,25-DIHYDROXY VITAMIN D; Future; Expected date: 01/22/2025 - PHOSPHORUS; Future; Expected date: 01/22/2025 - ALBUMIN; Future; Expected date: 01/22/2025 Follow Up: Return in about 6 months (around 04/24/2025) for Clinic Visit. | For: Clinic Visit | Check-out note: Follow up in 6 months for hypercalcemia PLAN Non PTH mediated Hypercalcemia Differential is broad at this time. Given this is non PTH mediated elevated 1,25 vit D, causes could include sarcoidosis, lymphoma, crohn's, vitamin D toxicity. She has been having increased cough that has been attributed to asthma, though sarcoidosis still on differential. She has not been having night sweats or weight loss, though has family history of lymphoma so is on differential. Did have recent diarrhea, but was secondary to c diff, lower suspicion of crohns. She did take vitamin D for her osteopenia; however, she was only on a maintenance dose and 25 vit D was < 100, so elevated 1,25 vit D would be rare, though still on differential. -drink adequate fluids -hold calcium/vitamin D supplements -recommend 2-3 servings of dietary calcium -recheck lab work in 3 months. If this was from vitamin D then lab work should return to normal. However, if does not change, then will need to pursue further work up of elevated Vit D levels -She is largely asymptomatic from mild hypercalcemia. No active treatment intervention is needed atthis time except for adequate hydration and optimization of calcium and D. -follow up with us in 6 months I appreciate the opportunity to share in the care of this very interesting and pleasant patient. Please don't hesitate to contact me with any questions regarding today's visit. Kamla Poon DO Internal Medicine Residency Patient seen and discussed with Dr. Kenney. Attending Addendum: I have discussed the patient's management with the resident/fellow physician and agree with the note. Please refer to the documented findings and plan of care. This patient's visit today consisted ofan evaluation. I was present and confirmed the findings of the history and exam. Casa Kenney MD CC:Lisette Diana DO documented in this encounter Nursing Notes * Roshan Ramos CMA - 10/22/2024 1:51 PM EDT Patient was instructed to not get up on the exam table/exam chair until directed and assisted by their provider; patient is to remain seated in the chair/ wheelchair/ exam table/ exam chair for fall prevention and safety reasons. Patient is aware to have assistance to step down off exam table/exam chair with personnel. Patient voiced full comprehension of instructions. documented in this encounter Plan of Treatment Upcoming Encounters Date Type Department Care Team (Latest Contact Info) Description 12/26/2024 2:30 PM EDT Hospital Encounter ENDO [facility], Endoscopy Room [facility] [address] [place] [phone] Dom Negron MD [address] [place] [address] 12/26/2024 2:30 PM EDT - 12/26/2024 3:00 PM EDT Surgery ENDO [facility], Endoscopy Room [facility] [address] [place] [id number] Dom Negron MD [address] [place] [address] COLONOSCOPY FLEXIBLE PROXIMAL DIAGNOSTIC 03/09/2025 8:30 AM EDT Nurse Only Ancillary [address] [place] [address] [place], Nurse [address] [place] [address] 04/10/2025 8:50 AM EDT Office Visit Family Medicine [address] [place] [phone] [address] [place] [address] 05/19/2025 2:00 PM EDT Office Visit Endocrinology [address] [place] [address] Casa Kenney MD [address] [place] [address] Scheduled Orders Name Type Priority Associated Diagnoses Orde r Schedule CALCIUM Lab Routine Hypercalcemia Expected: 01/22/2025 (Approximate), Expires: 10/22/2025 PTH Lab Routine Hypercalcemia Expected: 01/22/2025 (Approximate), Expires: 10/22/2025 25-HYDROXY VITAMIN D Lab Routine Hypercalcemia Expected: 01/22/2025 (Approximate), Expires: 10/22/2025 1,25-DIHYDROXY VITAMIN D Lab Routine Hypercalcemia Expected: 01/22/2025 (Approximate), Expires: 10/22/2025 PHOSPHORUS Lab Routine Hypercalcemia Expected: 01/22/2025 (Approximate), Expires: 10/22/2025 ALBUMIN Lab Routine Hypercalcemia Expected: 01/22/2025 (Approximate), Expires: 10/22/2025 Scheduled Procedures Name Priority Associated Diagnoses Date/Ti me COLONOSCOPY FLEXIBLE PROXIMA L DIAGNOSTIC Recall Bowel habit changes 12/26/2024 2:30 PM EDT Health Maintenance Due Date Last Done Comments *SPIROMETRY ONCE FOR ASTHMA-ADULT 12/29/2022 COVID-19 Vaccine ( season) 2024 12/16/2020, 11/17/2020 Zoster Vaccines (2 of 2) 06/24/2024 04/29/2024, 02/2024 Adult Wellness Visit 03/04/2025 03/04/2024, 03/02/20 [...] this encounter Medical Devices Implanted Type Area Audience Development Manager Device Identifier Shelf Expiration Date Model / Serial / Lot Lens Intraoc 22.0 - [id number] - [id number] Implanted:Qty: 1 on 06/23/2019 by Darrel Garza MD at [facility] Left: Eye [employer] 01/27/2024 [id number] / [id number] / Lens Intraoc 20.5 - [id number] - [id number] Implanted:Qty: 1 on 07/01/2019 by Darrel Garza MD at OR [facility] Right: Eye [employer]OM[employer] 01/27/2024 [id number] / [id number] / [id number] documented as of this encounter Visit Diagnoses Diagnosis Hypercalcemia- Primary Bowel habit changes Other symptoms involving digestive system documented in this encounter Care Teams Medical Lab Tech Instructor Relationship Specialty Start Date End Date Lisette Diana DO [address] [place] [address] [place] [address] PCP - General Internal Medicine 12/26/22 documented as of this encounter
--- OUTSIDE RECORDS SUMMARY | 2024-12-01 03:57 | External Medical Summary | Summary of Care ---
Author Name Unknown Organization [facility] Address [address] [facility] [place] [address] Phone [phone] Care Team Providers Care Software Technician Name Role Phone Diana Lisette Osorio Primary Care Provider [phone] Reason for Visit * Reason Comments Outpatient Testing Encounter Details Date Type Department Care Team (Late st Contact Info) Description 09/30/2024 10:20 AM EST Laboratory Laboratory [address] [place] [phone] [place] [address] Hypercalcemia Allergies Active Allergy Reactions Criticality Noted Date Comments Amoxicillin Nausea/vomiting Low 10/07/2013 Statins 01/30/2024 Joint/muscle pain documented as of this encounter (statuses as of 09/30/2024) Medications CALTRATE 600+D 600-400 MG-UNIT PO CHEW [...] the morning. 100 Tablet 1 5 Active documented as of this encounter (statuses as of 09/30/2024) Active Problems Problem Noted Date Diagnosed Date History of Clostridioides difficile colitis 08/30 Gastroesophageal reflux disease without esophagi tis 01/30/2024 Hyperlipidemia with target LDL less than 100 12/2022 History of breast cancer 12/26/2022 Mild persistent asthma without complication 11/29 Osteopenia of both hips 12/26/2022 Anxiety and depression 12/26/2022 HTN, goal below 140/90 12/26/2022 technician terminal and repeater current use of therapeutic drug 2022 documented as of this encounter (statuses as of 09/30/2024) Resolved Problems Problem Noted Date Diagnosed Date Resolved Date Microalbuminuria 07/04/2023 01/30/2024 Malignant neoplasm of upper- outer quadrant of female breast 10/07/2013 12/26/2022 documented as of this encounter (statuses as of 09/30/2024) Immunizations Name Administration Dates Next Due COVID-19 [...] Used Date Smoking Tobacco: Former Cigarettes 1 - 2002 Smokeless Tobacco: Never Quit: 07/30/2003 [...] 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 file Not on file documented as of this encounter Plan of Treatment Upcoming Encounters Date Type Department Care Team (Latest Contact Info) Description 12/26/2024 2:30 PM EDT Hospital Encounter [facility]O [facility], Endoscopy Room [facility] [address] [place] [phone] Dom Negron MD [address] [place] [address] 12/26/2024 2:30 PM EDT - 12/26/2024 3:00 PM EDT Surgery [facility]O [facility], Endoscopy Room [facility] [address] [place] [phone] Dom Negron MD [address] [place] [address] COLONOSCOPY FLEXIBLE PROXIMAL DIAGNOSTIC 03/09/2025 8:30 AM EDT Nurse Only Ancillary [address] [place] [address] [place], Nurse Annual Wellness [address] [place] [address] [place] [address] 04/10/2025 8:50 AM EDT Office Visit Family Medicine [address] [place] [phone] Lisette Diana, [address] [place] [address] Pending Results Name Type Priority Associated Diagnoses Date /Time PTH-RELATED PROTEIN (PTH-RP) Lab Routine Hypercalcemia 09/30/2024 10:06 AM EST CALCIUM, IONIZED Lab Routine Hypercalcemia 09/30/2024 10:06 AM EST 1,25-DIHYDROXY VITAMIN D Lab Routine Hypercalcemia 09/30/2024 10:06 AM EST Scheduled Procedures Name Priority Associated Diagnoses Date/Ti me COLONOSCOPY FLEXIBLE PROXIMA L DIAGNOSTIC Recall Bowel habit changes 12/26/2024 2:30 PM EDT Health Maintenance Due Date Last Done Comments *SPIROMETRY ONCE FOR ASTHMA-ADULT 12/29/2022 COVID-19 Vaccine ( season) 2024 12/16/2020, 11/17/2020 Zoster Vaccines (2 of 2) 06/24/2024 04/29/2024, 07/0 02/2024 Adult Wellness Visit 03/04/2025 03/04/2024, 03/02/20 23 Depression Monitoring 03/04/2025 03/04/2024 GFR 08/01/2025 08/01/2024, 06/10/2023, 12/26/2022, Additional history exists Albumin/Creatinine Ratio 12/26/2025 [...] this encounter Medical Devices Implanted Type Area Emergency Dept Tech Device Identifier Shelf Expiration Date Model / Serial / Lot Lens Intraoc 22.0 - [id number] - [id number] Implanted:Qty: 1 on 06/23/2019 by Darrel Garza MD at [facility] Left: Eye [employer] 01/27/2024 [id number] / [id number] / Lens Intraoc 20.5 - [id number] - [id number] Implanted:Qty: 1 on 07/01/2019 by Darrel Garza MD at [facility] Right: Eye [employer] 01/27/2024 [id number] / [id number] / [id number] documented as of this encounter Visit Diagnoses Diagnosis Hypercalcemia Bowel habit changes Other symptoms involving digestive system documented in this encounter Additional Health Concerns Infection Onset Date Last Indicated Resolved Time C. difficile 08/12/2024 08/12/2024 documented as of this encounter Care Teams Software Technician Relationship Specialty Start Date End Date Lisette Diana DO [address] [place] [address] [place] [phone] PCP - General Internal Medicine 12/26/22 documented as of this encounter
--- OUTSIDE RECORDS SUMMARY | 2024-12-01 03:57 | External Medical Summary | Summary of Care ---
Author Name Unknown Organization [facility] Address [address] [facility] [place] [address] Phone [phone] Care Team Providers Care Code Enforcement Officer Name Role Phone Lisette Diana DO Primary Care Provider + [phone] Reason for Visit * Reason Onset Date Comments Health Maintenance 09/29/2024 Encounter Details Date Type Department Care Team (Late st Contact Info) Description 09/29/2024 Telephone Family Medicine [address] [place] [phone] Lisette Diana DO [address] [place] [address] [place] [phone] Health Maintenance Allergies Active Allergy Reactions Criticality Noted Date [...] depression 12/26/2022 HTN, goal below 140/90 12/26/2022 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 2022 documented [...] 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 file Not on file documented as of this encounter Miscellaneous Notes * Telephone Encounter - Jillian GillBENJI - 09/29/2024 11:28 AM EST Care Gaps Comprehensive Care Outreach Last Office/Telemedicine Visit: 09/12/2024 (in office), Visit date not found (telemedicine) Next Office Visit: 04/10/2025 Hemoglobin AIC Results: No results found for: "HEMOGLOBIN A1C" BP Readings from Last 1 Encounters: 09/12/24 118/60 Reviewed Health Maintenance below: Health Maintenance Topic Date Due *SPIROMETRY ONCE FOR ASTHMA-ADULT Never done COVID-19 Vaccine ( season) 2024 Zoster Vaccines (2 of 2) 06/24/2024 Depression Monitoring 03/04/2025 Adult Wellness Visit 03/04/2025 GFR 08/01/2025 Albumin/Creatinine Ratio 12/26/2025 Pft Awv aug already scheduled Care Gap Outreach Action Taken: Left message documented in this encounter Plan of Treatment Upcoming Encounters Date Type Department Care Team (Latest Contact Info) Description 12/26/2024 2:30 PM EDT Hospital Encounter ENDO [facility], Endoscopy Room [facility] [address] [place] [phone] Dom Negron MD [address] [place] [address] 12/26/2024 2:30 PM EDT - 12/26/2024 3:00 PM EDT Surgery ENDO [facility], Endoscopy Room [facility] [address] [place] [phone] Dom Negron MD [address] [place] [address] COLONOSCOPY FLEXIBLE PROXIMAL DIAGNOSTIC 03/09/2025 8:30 AM EDT Nurse Only Ancillary [address] [place] [address] [place], Nurse Annual [address] [place] [address] 04/10/2025 8:50 AM EDT Office Visit Family Medicine [address] [place] [phone] Lisette Diana [address] [place] [address] Scheduled Procedures Name Priority Associated Diagnoses Date/Ti me COLONOSCOPY FLEXIBLE PROXIMA L DIAGNOSTIC Recall Bowel habit changes 12/26/2024 2:30 PM EDT Health Maintenance Due Date Last Done Comments *SPIROMETRY ONCE FOR ASTHMA-ADULT 12/29/2022 COVID-19 Vaccine ( - season) 2024 12/16/2020, 11/17/2020 Zoster Vaccines (2 [...] this encounter Medical Devices Implanted Type Area Public Health Educator Device Identifier Shelf Expiration Date Model / Serial / Lot Lens Intraoc 22.0 - [id number] - [id number] Implanted:Qty: 1 on 06/23/2019 by Darrel Garza MD at OR [facility] Left: Eye [employer]OM[employer] 01/27/2024 [id number] / [id number] / Lens Intraoc 20.5 - [id number] - [id number] Implanted:Qty: 1 on 07/01/2019 by Darrel Garza MD at [facility] Right: Eye [employer]USCH [employer] LOMB 01/27/2024 [id number] / [id number] / [id number] documented as of this encounter Additional Health Concerns Infection Onset Date Last Indicated Resolved Time C. difficile 08/12/2024 08/12/2024 documented as of this encounter Care Teams Code Enforcement Officer Relationship Specialty Start Date End Date Lisette Diana DO [address] [place] [address] [place] [address] PCP - General Internal Medicine 12/26/22 documented as of this encounter
--- OUTSIDE RECORDS SUMMARY | 2024-12-01 03:57 | External Medical Summary | Summary of Care ---
Author Name Unknown Organization [facility] Address [address] [facility] [place] [address] Phone [phone] Care Team Providers Care Golf Cart Attendant Name Role Phone Lisette Diana DO Primary Care Provider [phone] Reason for Visit * Reason Onset Date Comments Appointment 10/21/2024 Endocrinology Encounter Details Date Type Department Care Team (Late st Contact Info) Description 10/21/2024 Telephone Family Medicine [address] [place] [phone] Lisette Diana DO [address] [place] [address] [place] [address] Appointment (Endocrinology ) Allergies Active Allergy Reactions Criticality Noted Date Comments Amoxicillin Nausea/vomiting Low 10/07/2013 Statins 01/30/2024 Joint/muscle pain documented as of this encounter (statuses as of 10/21/2024) Medications CALTRATE 600+D 600-400 MG-UNIT PO CHEW [...] 180 Each 3 10/06/2024 2:57 PM EDT 08/14/202 4 Active Ezetimibe 10 MG Oral Tablet [...] as of this encounter (statuses as of 10/21/2024) Active Problems Problem Noted Date Diagnosed Date History of Clostridioides difficile colitis 08/30 Gastroesophageal reflux disease without esophagi tis 01/30/2024 Hyperlipidemia with target LDL less than 100 12/2022 History of breast cancer 12/26/2022 Mild persistent asthma without complication 11/29 Osteopenia of both hips 12/26/2022 Anxiety and depression 12/26/2022 HTN, goal below 140/90 12/26/2022 FDC current use of therapeutic drug 2022 documented as of this encounter (statuses as of 10/21/2024) Resolved Problems Problem Noted Date Diagnosed Date Resolved Date Microalbuminuria 07/04/2023 01/30/2024 Malignant neoplasm of upper- outer quadrant of female breast 10/07/2013 12/26/2022 documented as of this encounter (statuses as of 10/21/2024) Immunizations Name Administration Dates Next Due COVID-19 [...] 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 [phone] Casa Kenney MD [address] [place] [phone] 12/26/2024 2:30 PM EDT Hospital Encounter ENDO [facility], Endoscopy Room [facility] [address] [place] [phone] Dom Negron MD [address] [place] [address] 12/26/2024 2:30 PM EDT - 12/26/2024 3:00 PM EDT Surgery ENDO [facility], Endoscopy Room [facility] [address] [place] [phone] Dom Negron MD [address] [place] [address] COLONOSCOPY FLEXIBLE PROXIMAL DIAGNOSTIC 03/09/2025 8:30 AM EDT Nurse Only Ancillary [address] [place] [address] [place], Nurse [address] [place] [address] 04/10/2025 8:50 AM EDT Office Visit Family Medicine [address] [place] [phone] Lisette Diana, [address] [place] [address] Scheduled Procedures Name Priority Associated Diagnoses Date/Ti [...] this encounter Medical Devices Implanted Type Area Jewel Blocker And Sawyer Device Identifier Shelf Expiration Date Model / Serial / Lot Lens Intraoc 22.0 - [id number] - [id number] Implanted:Qty: 1 on 06/23/2019 by Darrel Garza MD at OR [facility] Left: Eye [employer]CH [employer] LOMB 01/27/2024 [id number] / [id number] / Lens Intraoc 20.5 - [id number] - [id number] Implanted:Qty: 1 on 07/01/2019 by Darrel Garza MD at OR [facility] Right: Eye [employer]OMB 01/27/2024 [id number] / [id number] / [id number] documented as of this encounter Care Teams Golf Cart Attendant Relationship Specialty Start Date End Date Lisette Diana DO [address] [place] [address] [place] [phone] PCP - General Internal Medicine 12/26/22 documented as of this encounter
--- OUTSIDE RECORDS SUMMARY | 2024-12-01 03:57 | External Medical Summary ---
Author Name Unknown Address Unknown Organization : Laboratory Report Ordering Provider Test Date Status FRANK MUNGUIA 09/30/2024 10:06:37 Final Observation Date Value Abnormality Reference (Units ) Status PTH-RELATED PROTEIN (PTH-RP) 09/30/2024 10:06:37 12 11-20 (pg/mL) Final This is a C-terminal PTH-RP assay. PTH-RP is
useful in the differential diagnosis of
hypercalcemia and levels may be elevated in
patients with tumor-associated hypercalcemia.
Elevated results may also be observed in patients
with renal disease.
This test was developed and its analytical
performance characteristics have been determined
by [employer]. It has not been cleared or
approved by the FDA. This assay has been validated
pursuant to the CLIA regulations and is used for
clinical purposes.
Test performed by [employer]
[address],
[place] [address]

Network Support Technician: Margarette Moralez MD,PHD,KELVIN
Test Reported by [facility],
[employer],
[address] [place], [place]
Chuy Marshall M.D., Ph.D., Director of Laboratories
, CLIA [id number] Performing Location
--- OUTSIDE RECORDS SUMMARY | 2024-12-01 03:57 | External Medical Summary | Summary of Care ---
Author Name Unknown Organization [facility] Address [address] [place] [place] [facility] [place] [address] Phone [phone] Care Team Providers Care Facilities Painter Name Role Phone Ezra Marie DO Primary Care Provider + [phone] Reason for Visit * Reason Comments Medication Refill Encounter Details Date Type Department Care Team (Late st Contact Info) Description 10/01/2024 Refill Family Medicine [address] [phone] Ezra Marie [address] [place] [address] Allergies Active Allergy Reactions Criticality Noted Date Comments Amoxicillin Nausea/vomiting Low 10/07/2013 Statins 01/30/2024 Joint/muscle pain documented as of this encounter (statuses as of 10/02/2024) Medications CALTRATE 600+D 600-400 MG-UNIT PO CHEW [...] 180 Each 3 09/08/2024 6:32 PM EST Active Ezetimibe 10 MG Oral Tablet (Zetia) [...] 100 Tablet 2 5 10/02/19 26 Active Benazepril HCl 40 MG Oral Tablet TAKE ONE TABLET BY MOUTH IN THE MORNING 100 Tablet 2 09/17/2024 4:52 PM EST 4 10/02/19 25 Discontinu ed(Refill) documented as of this encounter (statuses as of 10/02/2024) Active Problems Problem Noted Date Diagnosed Date History of Clostridioides difficile colitis 08/30 Gastroesophageal reflux disease without esophagi tis 01/30/2024 Hyperlipidemia with target LDL less than 100 12/2022 History of breast cancer 12/26/2022 Mild persistent asthma without complication 11/29 Osteopenia of both hips 12/26/2022 Anxiety and depression 12/26/2022 HTN, goal below 140/90 12/26/2022 alf current use of therapeutic drug 2022 documented as of this encounter (statuses as of 10/02/2024) Resolved Problems Problem Noted Date Diagnosed Date Resolved Date Microalbuminuria 07/04/2023 01/30/2024 Malignant neoplasm of upper- outer quadrant of female breast 10/07/2013 12/26/2022 documented as of this encounter (statuses as of 10/02/2024) Immunizations Name Administration Dates Next Due COVID-19 [...] 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 Not on file documented as of this encounter Miscellaneous Notes * Telephone Encounter - Benedict Strong, [facility] - 10/01/2024 8:17 PM EST Signed Prescriptions: Disp Refills Benazepril HCl 40 MG Oral Tablet 100 Ta*2 Sig: TAKE ONE TABLET BY MOUTH IN THE MORNINGAuthorizing Provider: EZRA MARIE User: BENEDICT STRONG--- documented in this encounter Plan of Treatment Upcoming Encounters Date Type Department Care Team (Latest Contact Info) Description 12/26/2024 2:30 PM EDT Hospital Encounter ENDO [facility], Endoscopy Room [facility] [address] [place] [phone] Dom Negron MD [address] [place] [address] 12/26/2024 2:30 PM EDT - 12/26/2024 3:00 PM EDT Surgery [facility]O [facility], Endoscopy Room [facility] [address] [place] [phone] Dom Negron MD [address] [place] [address] COLONOSCOPY FLEXIBLE PROXIMAL DIAGNOSTIC 03/09/2025 8:30 AM EDT Nurse Only Ancillary [address] [place] [address] [place], Nurse [address] [place] [address] 04/10/2025 8:50 AM EDT Office Visit Family Medicine [address] [place] [phone] Ezra Marie, [address] [place] [address] Scheduled Procedures Name Priority Associated Diagnoses Date/Ti me COLONOSCOPY FLEXIBLE PROXIMA L DIAGNOSTIC Recall Bowel habit changes 12/26/2024 2:30 PM EDT Health Maintenance Due Date Last Done Comments *SPIROMETRY ONCE FOR ASTHMA-ADULT 12/29/2022 COVID-19 Vaccine ( season) 2024 12/16/2020, 11/17/2020 Zoster Vaccines (2 of 2) 06/24/2024 04/29/2024, 07/0 02/2024 Adult Wellness Visit 03/04/2025 03/04/2024, 03/02/20 Depression Monitoring 03/04/2025 03/04/2024 GFR 08/01/2025 08/01/2024, [...] this encounter Medical Devices Implanted Type Area Turkey Roll Maker Device Identifier Shelf Expiration Date Model / Serial / Lot Lens Intraoc 22.0 - [id number] - [id number] Implanted:Qty: 1 on 06/23/2019 by Darrel Garza MD at OR [facility] Left: Eye [employer]CH [employer] LOMB 01/27/2024 [id number] / [id number] / Lens Intraoc 20.5 - [id number] - [id number] Implanted:Qty: 1 on 07/01/2019 by KaylaDarrel go MD at [facility] Right: Eye BAUSCH [employer] LOMB 01/27/2024 [id number] / [id number] / [id number] documented as of this encounter Additional Health Concerns Infection Onset Date Last Indicated Resolved Time C. difficile 08/12/2024 08/12/2024 documented as of this encounter Care Teams Facilities Painter Relationship Specialty Start Date End Date Ezra Marie DO [address] [place] [address] [place] [address] PCP - General Internal Medicine 12/26/22 documented as of this encounter
--- OUTSIDE RECORDS SUMMARY | 2024-12-01 03:58 | External Medical Summary | Summary of Care ---
Author Name Unknown Organization [facility] Address [address] [facility] [place] [address] Phone [phone] Care Team Providers Care Materials Tech Name Role Phone Marie Ezra Osorio Primary Care Provider [phone] Reason for Visit * Reason Comments Outpatient Testing Encounter Details Date Type Department Care Team (Late st Contact Info) Description 09/12/2024 10:10 AM EST Laboratory Laboratory [address] [place] [phone] [place] [address] Hyperlipidemia with target LDL less than 100; Hypercalcemia; tank terminal gauger current use of therapeutic drug Allergies Active Allergy Reactions Criticality Noted Date Comments Amoxicillin Nausea/vomiting Low 10/07/2013 Statins 01/30/2024 Joint/muscle pain documented as of this encounter (statuses as of 09/15/2024) Medications CALTRATE 600+D 600-400 MG-UNIT PO CHEW Take 1 Tablet by mouth in the morning and 1 Tablet before bedtime. Active OSTEO BI-FLEX ADV DOUBLE ST PO TABS 1 tablet daily Active CENTRUM SILVER ULTRA WOMENS PO TABS Take 1 Tablet by mouth in the morning. Active Elderberry 500 MG Oral Capsule Take by mouth. Active Carvedilol 6.25 MG Oral Tablet (Coreg) TAKE ONE TABLET BY MOUTH TWICE A DAY 180 Tablet 3 07/01/2024 1:15 PM EST 4 10/08/19 25 Active Benazepril HCl 40 MG Oral Tablet TAKE ONE TABLET BY MOUTH IN THE MORNING 100 Tablet 2 06/10/2024 5:26 PM EST 4 02/29/20 25 Active Breo Ellipta 100-25 MCG/ACT Inhalation Aerosol Powder Breath ActivatedIndicatio ns:Mild persistent asthma without complication INHALE ONE PUFF BY MOUTH EVERY DAY 180 Each 3 09/08/2024 6:32 PM EST 4 Active NIFEdipine ER 60 MG Oral Tablet Extended Release 24 Hour (Adalat CC) Take 1 Tablet by mouth in the morning. 100 Tablet 1 06/20/2024 7:05 AM EST 4 Active Ezetimibe 10 MG Oral [...] Capsule by mouth in the morning. Active RSVPreF3 Vac Recomb Adjuvanted 120 MCG/0.5ML Intramuscular Suspension Reconstituted (Arexvy) Inject 0.5 mL into a large muscle once for 1 dose. 1 Each 5 09/12/19 25 documented as of this encounter (statuses as of 09/15/2024) Active Problems Problem Noted Date Diagnosed Date History of Clostridioides difficile colitis 08/30 Gastroesophageal reflux disease without esophagi tis 01/30/2024 Hyperlipidemia with target LDL less than 100 12/2022 History of breast cancer 12/26/2022 Mild persistent asthma without complication 11/29 Osteopenia of both hips 12/26/2022 Anxiety and depression 12/26/2022 HTN, goal below 140/90 12/26/2022 assisted current use of therapeutic drug 2022 documented as of this encounter (statuses as of 09/15/2024) Resolved Problems Problem Noted Date Diagnosed Date Resolved Date Microalbuminuria 07/04/2023 01/30/2024 Malignant neoplasm of upper- outer quadrant of female breast 10/07/2013 12/26/2022 documented as of this encounter (statuses as of 09/15/2024) Immunizations Name Administration Dates Next Due COVID-19 [...] No 03/04/2024 Does the household have a [facility] source [facility] income? 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 file Not on file documented as of this encounter Miscellaneous Notes * Addendum Note - Ezra Marie DO - 09/15/2024 11:26 AM ESTAddended by: EZRA MARIE on: 09/15/2024 11:26 AM Modules accepted: Orders documented in this encounter Plan of Treatment Upcoming Encounters Date Type Department Care Team (Latest Contact Info) Description 12/26/2024 2:30 PM EDT Hospital Encounter ENDO [facility], Endoscopy Room [facility] [address] [place] [phone] Dom Negron MD [address] [place] [address] 12/26/2024 2:30 PM EDT - 12/26/2024 3:00 PM EDT Surgery ENDO [facility], Endoscopy Room [facility] [address] [place] [phone] Dom Negron MD [address] [place] [address] COLONOSCOPY FLEXIBLE PROXIMAL DIAGNOSTIC 03/09/2025 8:30 AM EDT Nurse Only Ancillary [address] [place] [address] [place], Nurse [address] [place] [address] 04/10/2025 8:50 AM EDT Office Visit Family Medicine [address] [place] [phone] Ezra Marie DO [address] [place] [address] [place] [id number] Scheduled Orders Name Type Priority Associated Diagnoses Orde r Schedule PTH-RELATED PROTEIN (PTH-RP) Lab Routine Hypercalcemia Expected: 09/15/2024, Expires: 09/15/2025 CALCIUM, IONIZED Lab Routine Hypercalcemia Expected: 09/15/2024 (Approximate), Expires: 09/15/2025 1,25-DIHYDROXY VITAMIN D Lab Routine Hypercalcemia Expected: 09/15/2024, Expires: 09/15/2025 Scheduled Procedures Name Priority Associated Diagnoses Date/Ti me COLONOSCOPY FLEXIBLE PROXIMA L DIAGNOSTIC Recall Bowel habit changes 12/26/2024 2:30 PM EDT Health Maintenance Due Date Last Done Comments *SPIROMETRY ONCE FOR ASTHMA-ADULT 12/29/2022 COVID-19 Vaccine ( - season) 2024 12/16/2020, 11/17/2020 Zoster Vaccines (2 of 2) 06/24/2024 04/29/2024, 07/02/2024 Adult Wellness Visit 03/04/2025 03/04/2024, 03/02/20 23 [...] this encounter Medical Devices Implanted Type Area Veterinary Technician Instructor Device Identifier Shelf Expiration Date Model / Serial / Lot Lens Intraoc 22.0 - [id number] - [id number] Implanted:Qty: 1 on 06/23/2019 by Darrel Garza MD at OR [facility] Left: Eye [employer] 01/27/2024 [id number] / [id number] / Lens Intraoc 20.5 - [id number] - [id number] Implanted:Qty: 1 on 07/01/2019 by Darrel Garza MD at OR [facility] Right: Eye [employer] 01/27/2024 [id number] / [id number] / [id number] documented as of this encounter Procedures Procedure Name Priority Date/Time Associated Diagnosis Comments LIPID PANEL WITH DIRECT LDL IF TG IS HIGH Routine 09/12/2024 10:04 AM EST Hyperlipidemia with target LDL less than 100 25-HYDROXY VITAMIN D Routine 09/12/2024 10:04 AM EST Hypercalcemia PTH Routine 09/12/2024 10:04 AM EST Hypercalcemia CALCIUM Routine 09/12/2024 10:04 AM EST Hypercalcemia MAGNESIUM Routine 09/12/2024 10:04 AM EST tank terminal gauger current use of therapeutic drug VITAMIN B12 Routine 09/12/2024 10:04 AM EST tank terminal gauger current use of therapeutic drug documented in this encounter Results * VITAMIN B12 (09/12/2024 10:04 AM EST) Vitamin B12 567 232 - 1,245 pg/mL 09/13/2024 10:05 AM EST [facility] Blood Venous blood specimen / Unknown Venipuncture / Unknown 09/12/2024 10:04 AM EST 09/12/2024 10:04 AM EST us Ezra Marie DO LAB BLOOD ORDERABLES Final R esult [facility] [address] [place] [address] * MAGNESIUM (09/12/2024 10:04 AM EST) Magnesium 2.4 1.5 - 2.6 mg/dL 09/13/2024 1:47 AM EST LABORATORY C Blood Venous blood specimen / Unknown Venipuncture / Unknown 09/12/2024 10:04 AM EST 09/12/2024 10:04 AM EST Ezra Marie DO LAB BLOOD ORDERABLES Final R esult Performing Organization Address City/[facility]/ZIP Co de Phone Number [facility] [address] [place] [address] * (ABNORMAL) CALCIUM (09/12/2024 10:04 AM EST) CALCIUM 10.6(H) 8.4 - 10.2 mg/dL 09/13/2024 1:47 AM EST [facility] Blood Venous blood specimen / Unknown Venipuncture / Unknown 09/12/2024 10:04 AM EST 09/12/2024 10:04 AM EST Ezar Marie DO LAB BLOOD ORDERABLES Final R esult Performing Organization Address [facility] Co de Phone Number [facility] [address] [place] [address] * (ABNORMAL) PTH (09/12/2024 10:04 AM EST) PTH 11(L) 15 - 65 pg/mL 09/13/2024 10:05 AM EST [facility] Blood Venous blood specimen / Unknown Venipuncture / Unknown 09/12/2024 10:04 AM EST 09/12/2024 10:04 AM EST Ezra Marie DO LAB BLOOD ORDERABLES Final R esult Performing Organization Address City/[facility] Co de Phone Number [facility] [address] [place] [address] * 25-HYDROXY VITAMIN D (09/12/2024 10:04 AM EST) 25-Hydroxy Vitamin D 75 >19 ng/mL 09/13/2024 10:05 AM EST [facility] Blood Venous blood specimen / Unknown Venipuncture / Unknown 09/12/2024 10:04 AM EST 09/12/2024 10:04 AM EST Narrative [facility] - 09/13/2024 10:05 AM EST Deficient: <20 ng/mL Insufficient: 20-29 ng/mL Recommended/Optimum:30-50 ng/mL Vitamin D intoxication is rare. If suspicious of Vitamin D toxicity, evaluation of serum Calcium and PTH is recommended. us Ezra Osorio Adalgisa DO LAB BLOOD ORDERABLES Final R esult [facility] [address] [place] [address] * (ABNORMAL) LIPID PANEL WITH DIRECT LDL IF TG IS HIGH (09/12/2024 10:04 AM EST) Triglycerides 165 <=174 mg/dL 09/13/2024 1:47 AM EST [facility] Comment: Triglyceride Reference Ranges (mg/dL): <150 Acceptable 150-174 Borderline high 175-499 High >=500 Very high Cholesterol 239(H) <200 mg/dL 09/13/2024 1:47 AM EST [facility] Comment: Total Cholesterol Reference Ranges (mg/dL): <200 Desirable 200-239 Borderline high >=240 High HDL Cholesterol 51 >49 mg/dL 1:47 AM EST [facility] Comment: HDL Cholesterol Reference Ranges (mg/dL): >=60 High (Desirable) <50 Low (Undesirable) For Females <40 Low (Undesirable) For Males Non-HDL Cholesterol 188(H) <=159 mg/dL 09/13/2024 1:47 AM EST [facility] Comment: Non-HDL Cholesterol Reference Range (mg/dL): <100 Target level for high risk ASCVD patient <130 Optimal for general population 130-159 Near optimal for general population 160-189 Borderline High 190-219 High >=220 Very High LDL Cholesterol 155(H) <=129 mg/dL 09/13/2024 1:47 AM EST [facility] Comment: LDL Cholesterol Reference Ranges (mg/dL): <70 Target level for high risk ASCVD patient <100 Optimal for general population 100-129 Near optimal for general population 130-159 Borderline high 160-189 High >=190 Very high Blood Venous blood specimen / Unknown Venipuncture / Unknown 09/12/2024 10:04 AM EST 09/12/2024 10:04 AM EST Ezra Marie DO LAB BLOOD ORDERABLES Final R esult [facility] [address] [facility] [address] documented in this encounter Visit Diagnoses Diagnosis Hyperlipidemia with target LDL less than 100 Other and unspecified hyperlipidemia Hypercalcemia tank terminal gauger current use of therapeutic drug Bowel habit changes Other symptoms involving digestive system documented in this encounter Additional Health Concerns Infection Onset Date Last Indicated Resolved Time C. difficile 08/12/2024 08/12/2024 documented as of this encounter Care Teams Materials Tech Relationship Specialty Start Date End Date Ezra Marie DO [address] [place] [address] [place] [id number] PCP - General Internal Medicine 12/26/22 documented as of this encounter
--- OUTSIDE RECORDS SUMMARY | 2024-12-01 03:58 | External Medical Summary | Summary of Care ---
Author Name Unknown Organization [facility] Address [address] [facility] [place] [address] Phone [phone] Care Team Providers Care Counter Tender Name Role Phone Lisette Diana DO Primary Care Provider + [phone] Reason for Visit * Reason Comments Re-Check Encounter Details Date Type Department Care Team (Late st Contact Info) Description 09/12/2024 9:30 AM EST Office Visit Family Medicine [address] [place] [address] Lisette Diana DO [address] [place] [address] [place] [address] HTN, goal below 140/90*; Anxiety and depression; Hyperlipidemia with target LDL less than 100; Gastroesophageal reflux disease without esophagitis; Mild persistent asthma without complication; Hypercalcemia; 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 Allergies Active Allergy Reactions Criticality Noted Date Comments Amoxicillin Nausea/vomiting Low 10/07/2013 Statins 01/30/2024 Joint/muscle pain documented as of this encounter (statuses as of 09/12/2024) Medications CALTRATE 600+D 600-400 MG-UNIT PO CHEW [...] MOUTH TWICE A DAY 180 Tablet 3 12/03/202 4 1:15 PM EST 10/08/19 24 025 Active Benazepril HCl 40 MG Oral Tablet TAKE ONE TABLET BY MOUTH IN THE MORNING 100 Tablet 2 4 5:26 PM EST 02/29/20 24 025 Active Breo Ellipta 100-25 MCG/ACT Inhalation Aerosol Powder Breath ActivatedIndicati ons:Mild persistent asthma without complication INHALE ONE PUFF BY MOUTH EVERY DAY 180 Each 3 5 6:32 PM EST 03/12/20 24 Active NIFEdipine ER 60 MG Oral Tablet Extended Release 24 Hour (Adalat CC) Take 1 Tablet by mouth in the morning. 100 Tablet 1 4 7:05 AM EST 03/18/20 24 Active Ezetimibe 10 MG Oral Tablet (Zetia) Take 1 Tablet by mouth daily in the morning. 100 Tablet 2 5 7:10 AM EST 04/30/20 24 Active Fenofibrate 145 MG Oral Tablet (Tricor) Take 1 Tablet by mouth in the morning. 90 Tablet 2 5 1:58 PM EST 07/14/20 24 Active Sertraline HCl 100 MG Oral Tablet (Zoloft) TAKE ONE AND ONE-HALF TABLETS BY MOUTH IN THE MORNING 135 Tablet 1 4 9:46 AM EST 07/17/20 24 025 Active ZyrTEC Allergy 10 MG Oral Capsule (Cetirizine HCl) Take 1 Capsule by mouth in the morning. Active RSVPreF3 Vac Recomb Adjuvanted 120 MCG/0.5ML Intramuscular Suspension Reconstituted (Arexvy) Inject 0.5 mL into a large muscle once for 1 dose. 1 Each 09/12/19 25 025 Active Zoster Vac Recomb Adjuvanted 50 MCG/0.5ML Intramuscular Suspension Reconstituted (Shingrix) Inject 0.5 mL into a large muscle now and repeat dose in 60 to 180 days 1 Each 1 01/30/20 24 025 Discontinued Pantoprazole Sodium 40 MG Oral Tablet Delayed Release (Protonix) Take 1 Tablet by mouth in the morning. 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 2022 documented as of this encounter (statuses as of 09/12/2024) Resolved Problems Problem Noted Date Diagnosed Date Resolved Date Microalbuminuria 07/04/2023 01/30/2024 Malignant neoplasm of upper- outer quadrant of female breast 10/07/2013 12/26/2022 documented as of this encounter (statuses as of 09/12/2024) Immunizations Name Administration Dates Next Due COVID-19 mRNA, LNP-s, No Pre serve, 2-Dose Series (Moderna) 12/16/2020,11/17/2020 Pneumococcal Conjugate Vacc, 13 Valent (Prevnar) 06/17/2018 Pneumococcal Polysaccharide PPV23 (Pneumovax) ,06/28/2010 Seasonal Influenza, High Dos e, Trivalent, PF, [...] Smoking Tobacco: Former Cigarettes 1 12 1 1 - 2002 Smokeless Tobacco: Never Quit: [...] Not on file 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 Chief Complaint Patient presents with Re-Check HPI: Verónica Hoffmann presents today for routine follow up. She was diagnosed with C. Diff. She reports this is better today. BP is well controlled today. No lightheadedness or dizziness. She does get some muscle cramps in her calves at night. Will last for a few minutes before it goes away. Breathing has been doing well. She continues to use the Breo - had some problems with mail order when [place] the [place] but thinks it is sorted out now. Mood is good on sertraline 100 mg. She got both of her shingrix shots last year. Discussed RSV vaccine - she is agreeable. No heartburn on pantoprazole. She would like to try stopping this to see how she does off of it. PMH: Patient Active Problem List Diagnosis History of breast cancer Mild persistent asthma without complication Osteopenia of both hips Anxiety and depression HTN, goal below 140/90 [facility] current use of therapeutic drug Hyperlipidemia with target LDL less than 100 Gastroesophageal reflux disease without esophagitis Current Outpatient Medications Medication Sig Dispense Refill CALTRATE 600+D 600-400 MG-UNIT PO CHEW Take 1 Tablet by mouth in the morning and 1 Tablet before bedtime. OSTEO BI-FLEX ADV DOUBLE ST PO TABS 1 tablet daily CENTRUM SILVER ULTRA WOMENS PO TABS Take 1 Tablet by mouth in the morning. Elderberry 500 MG Oral Capsule Take by mouth. Carvedilol 6.25 MG Oral Tablet (Coreg) TAKE ONE TABLET BY MOUTH TWICE A DAY 180 Tablet 3 Zoster Vac Recomb Adjuvanted 50 MCG/0.5ML Intramuscular Suspension Reconstituted (Shingrix) Inject 0.5 mL into a large muscle now and repeat dose in 60 to 180 days 1 Each 1 Benazepril HCl 40 MG Oral Tablet TAKE ONE TABLET BY MOUTH IN THE MORNING 100 Tablet 2 Breo Ellipta 100-25 MCG/ACT Inhalation Aerosol Powder Breath Activated INHALE ONE PUFF BY MOUTH EVERY DAY 180 Each 3 NIFEdipine ER 60 MG Oral Tablet Extended Release 24 Hour (Adalat CC) Take 1 Tablet by mouth in the morning. 100 Tablet 1 Ezetimibe 10 MG Oral Tablet (Zetia) Take 1 Tablet by mouth daily in the morning. 100 Tablet 2 Pantoprazole Sodium 40 MG Oral Tablet Delayed Release (Protonix) Take 1 Tablet by mouth in the morning. 90 Tablet 2 Fenofibrate 145 MG Oral Tablet (Tricor) Take 1 Tablet by mouth in the morning. 90 Tablet 2 Sertraline HCl 100 MG Oral Tablet (Zoloft) TAKE ONE AND ONE-HALF TABLETS BY MOUTH IN THE MORNING 135 Tablet 1 ZyrTEC Allergy 10 MG Oral Capsule (Cetirizine HCl) Take 1 Capsule by mouth in the morning. No current facility-administered medications for this visit. Review of patient's allergies indicates: Allergen Reactions Statins Joint/muscle pain Amoxicillin Nausea/vomiting Objective: BP 118/60 | Pulse 81 | Temp 97.2 °F (36.2 °C) (Tympanic) | Wt 168 lb (76.2 kg) | BMI 30.24 kg/m²| BSA 1.83 m² General: alert, healthy, no distress, well nourished, and well developed Neck: supple, no adenopathy, thyroid normal size, non-tender, without nodularity Heart: regular rate & rhythm and no murmur Lungs: chest symmetric with normal AP diameter, no chest deformities noted, normal respiratory rateand rhythm, lungs clear to auscultation Abdomen: abdomen soft and non-tender Extremities: no joint deformities, effusion, or inflammation, no edema Neuro Exam: alert & oriented x 3 with fluent speech, no focal motor/sensory deficits, gait normal Skin: skin color, texture, turgor are normal, no rashes or significant lesions ASSESSMENT/PLAN: HTN, goal below 140/90 (Primary) - well controlled on current regimen. Continue. Anxiety and depression - stable on sertraline. Continue. Hyperlipidemia with target LDL less than 100 - LIPID PANEL WITH DIRECT LDL IF TG IS HIGH; Future; Expected date: 09/12/2024 Gastroesophageal reflux disease without esophagitis - doing well on PPI, but she would like to try stopping this to see how she does off of it. I think this is reasonable. Advised that she can restart it if needed. Mild persistent asthma without complication - stable on Breo. Hypercalcemia - 25-HYDROXY VITAMIN D; Future; Expected date: 09/12/2024 - PTH; Future; Expected date: 09/12/2024 - CALCIUM; Future; Expected date: 09/12/2024 [facility] current use of therapeutic drug - MAGNESIUM; Future; Expected date: 09/12/2024 - VITAMIN B12; Future; Expected date: 09/12/2024 Other orders - RSVPreF3 Vac Recomb Adjuvanted 120 MCG/0.5ML Intramuscular Suspension Reconstituted (Arexvy); Inject 0.5 mL into a large muscle once for 1 dose. Follow-up: Return in about 6 months (around 03/12/2025). | Check-out note: Labs today. Lisette Diana DO documented in this encounter Nursing Notes * Kristy Monteiro LPN - 09/12/2024 9:18 AM EST 6 month return No concerns today. documented in this encounter Plan of Treatment Upcoming Encounters Date Type Department Care Team (Latest Contact Info) Description 12/26/2024 2:30 PM EDT Hospital Encounter ENDO [facility], Endoscopy Room [facility] [address] [place] [phone] Dom Negron MD [address] [place] [id number] 12/26/2024 2:30 PM EDT - 12/26/2024 3:00 PM EDT Surgery ENDO [facility], Endoscopy Room [facility] [address] [place] [phone] Dom Negron MD [address] [place] [address] COLONOSCOPY FLEXIBLE PROXIMAL DIAGNOSTIC 03/09/2025 8:30 AM EDT Nurse Only Ancillary [address] [place] [address] [place], Nurse Annual [address] [place] [address] 04/10/2025 8:50 AM EDT Office Visit Family Medicine [address] [place] [phone] [place] [address] Pending Results Name Type Priority Associated Diagnoses Date /Time LIPID PANEL WITH DIRECT LDL IF TG IS HIGH Lab Routine Hyperlipidemia with target LDL less than 100 09/12/2024 10:04 AM EST 25-HYDROXY VITAMIN D Lab Routine Hypercalcemia 09/12/2024 10:04 AM EST PTH Lab Routine Hypercalcemia 09/12/2024 10:04 AM EST CALCIUM Lab Routine Hypercalcemia 09/12/2024 10:04 AM EST MAGNESIUM Lab Routine 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 09/12/2024 10:04 AM EST VITAMIN B12 Lab Routine [facility] current use of therapeutic drug 09/12/2024 10:04 AM EST Scheduled Orders Name Type Priority Associated Diagnoses Orde r Schedule LIPID PANEL WITH DIRECT LDL IF TG IS HIGH Lab Routine Hyperlipidemia with target LDL less than 100 Expected: 09/12/2024, Expires: 09/12/2025 25-HYDROXY VITAMIN D Lab Routine Hypercalcemia Expected: 09/12/2024 (Approximate), Expires: 09/12/2025 PTH Lab Routine Hypercalcemia Expected: 09/12/2024 (Approximate), Expires: 09/12/2025 CALCIUM Lab Routine Hypercalcemia Expected: 09/12/2024 (Approximate), Expires: 09/12/2025 MAGNESIUM Lab Routine 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 Expected: 09/12/2024 (Approximate), Expires: 09/12/2025 VITAMIN B12 Lab Routine [facility] current use of therapeutic drug Expected: 09/12/2024 (Approximate), Expires: 09/12/2025 Scheduled Procedures Name Priority Associated Diagnoses Date/Ti me COLONOSCOPY FLEXIBLE PROXIMA L DIAGNOSTIC Recall Bowel habit changes 12/26/2024 2:30 PM EDT Health Maintenance Due Date Last Done Comments *SPIROMETRY ONCE FOR ASTHMA-ADULT 12/29/2022 COVID-19 Vaccine ( season) 2024 12/16/2020, 11/17/2020 Zoster Vaccines (2 of 2) 06/24/2024 04/29/2024, 07/0 02/2024 Adult Wellness Visit 03/04/2025 03/04/2024, 03/02/20 23 Depression Monitoring 03/04/2025 03/04/2024 GFR 08/01/2025 08/01/2024, 0610/2023, 12/26/2022, Additional history exists Albumin/Creatinine Ratio 12/26/2025 [...] this encounter Medical Devices Implanted Type Area Electrologist Device Identifier Shelf Expiration Date Model / Serial / Lot Lens Intraoc 22.0 - [id number] - [id number] Implanted:Qty: 1 on 06/23/2019 by Darrel Garza MD at [facility] Left: Eye [employer] 01/27/2024 [id number] / [id number] / Lens Intraoc 20.5 - [id number] - [id number] Implanted:Qty: 1 on 07/01/2019 by Darrel Garza MD at OR [facility] Right: Eye [employer]OMB 01/27/2024 [id number] / [id number] / [id number] documented as of this encounter Visit Diagnoses Diagnosis HTN, goal below 140/90- Primary Unspecified essential hypertension Anxiety and depression Dysthymic disorder Hyperlipidemia with target LDL less than 100 Other and unspecified hyperlipidemia Gastroesophageal reflux disease without esophagitis Esophageal reflux Mild persistent asthma without complication Unspecified asthma Hypercalcemia [facility] current use of therapeutic drug Bowel habit changes Other symptoms involving digestive system documented in this encounter Additional Health Concerns Infection Onset Date Last Indicated Resolved Time C. difficile 08/12/2024 08/12/2024 documented as of this encounter Care Teams Counter Tender Relationship Specialty Start Date End Date Lisette Diana DO [address] [place] [address] [place] [address] PCP - General Internal Medicine 12/26/22 documented as of this encounter"
--- OUTSIDE RECORDS SUMMARY | 2024-12-01 03:58 | External Medical Summary ---
Author Name Unknown Address Unknown Organization K01:[facility] - [address] [place] [address] Laboratory Report Ordering Provider Test Date Status FRANK MUNGUIA 09/12/2024 10:04:28 Final Observation Date Value Abnormality Reference (Units ) Status Magnesium 09/12/2024 10:04:28 2.4 1.5-2.6 (m g/dL) Final Performing Location [facility] - [address] [place] [address]
--- OUTSIDE RECORDS SUMMARY | 2024-12-01 03:58 | External Medical Summary | Summary of Care ---
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 2022 documented [...] Smoking Tobacco: Former Cigarettes 1 12 1 - 2002 Smokeless Tobacco: Never Quit: [...] Not on file 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 file Not on file documented as of this encounter Plan of Treatment Upcoming Encounters Date Type Department Care Team (Latest Contact Info) Description 12/26/2024 2:30 PM EDT Hospital Encounter [facility], Endoscopy Room [facility] [address] [place] [phone] Dom Negron MD [address] [place] [address] 12/26/2024 2:30 PM EDT - 12/26/2024 3:00 PM EDT Surgery ENDO [facility], Endoscopy Room [facility] [address] [place] [phone] Dom Negron MD [address] [place] [address] COLONOSCOPY FLEXIBLE PROXIMAL DIAGNOSTIC 03/09/2025 8:30 AM EDT Nurse Only Ancillary [address] [place] [address] [place], Nurse [address] [place] [address] 04/10/2025 8:50 AM EDT Office Visit Family Medicine [address] [place] [phone] Lisette Diana, [address] [place] [address] Pending Results Name Type Priority Associated Diagnoses Date /Time LIPID PANEL WITH DIRECT LDL IF TG IS HIGH Lab Routine Hyperlipidemia with target LDL less than 100 09/12/2024 10:04 AM EST 25-HYDROXY VITAMIN D Lab Routine Hypercalcemia 09/12/2024 10:04 AM EST PTH Lab Routine Hypercalcemia 09/12/2024 10:04 AM EST CALCIUM Lab Routine Hypercalcemia 09/12/2024 10:04 AM EST MAGNESIUM Lab Routine 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 09/12/2024 10:04 AM EST VITAMIN B12 Lab Routine intermediate current use of therapeutic drug 09/12/2024 10:04 AM EST Scheduled Procedures Name Priority Associated [...] this encounter Medical Devices Implanted Type Area Tobacco Stripper Hand Device Identifier Shelf Expiration Date Model / Serial / Lot Lens Intraoc 22.0 - [id number] - [id number] Implanted:Qty: 1 on 06/23/2019 by Darrel Garza MD at OR [facility] Left: Eye [employer] 01/27/2024 [id number] / [id number] / Lens Intraoc 20.5 - [id number] - [id number] Implanted:Qty: 1 on 07/01/2019 by Darrel Garza MD at OR [facility] Right: Eye [employer]OM[employer] 01/27/2024 [id number] / [id number] / [id number] documented as of this encounter Visit Diagnoses Diagnosis Hyperlipidemia with target LDL less than 100 Other and unspecified hyperlipidemia Hypercalcemia intermediate current use of therapeutic drug Bowel habit changes Other symptoms involving digestive system documented in this encounter Additional Health Concerns Infection Onset Date Last Indicated Resolved Time C. difficile 08/12/2024 08/12/2024 documented as of this encounter Care Teams Rural Mail Carrier Relationship Specialty Start Date End Date Lisette Diana DO [address] [place] [address] [place] [phone] PCP - General Internal Medicine 12/26/22 documented as of this encounter
--- OUTSIDE RECORDS SUMMARY | 2024-12-01 03:58 | External Medical Summary ---
Author Name Unknown Address Unknown Organization K01:[facility] - [address] [place] [address] Laboratory Report Ordering Provider Test Date Status FRANK MUNGUIA 09/12/2024 10:04:28 Final Observation Date Value Abnormality Reference (Units ) Status Calcium 09/12/2024 10:04:28 10.6 Above high normal 8. 4-10.2 (mg/dL) Final Performing Location [facility] - [address] [place] [address]
--- OUTSIDE RECORDS SUMMARY | 2024-12-01 03:58 | External Medical Summary ---
Author Name Unknown Address Unknown Organization K01:[facility] - [address] [facility] [place] [address] Laboratory Report Ordering Provider Test Date Status FRANK MUNGUIA 09/12/2024 10:04:28 Final Observation Date Value Abnormality Reference (Units ) Status Triglyceride 09/12/2024 10:04:28 165 <=174 ( mg/dL) Final Triglyceride Reference Range s (mg/dL):
<150 Acceptable
150-174 Borderline high
175-499 High
>=500 Very high Cholesterol 09/12/2024 10:04:28 239 Above high normal <200 (mg/dL) Final Total Cholesterol Reference Ranges (mg/dL):
<200 Desirable
200-239 Borderline high
>=240 High HDL 09/12/2024 10:04:28 51 >49 (mg/dL ) Final HDL Cholesterol Reference Ra nges (mg/dL):
>=60 High (Desirable)
<50 Low (Undesirable) For Females
<40 Low (Undesirable) For Males NON-HDL CHOLESTEROL 09/12/2024 10:04:28 188 Above high normal <=159 (mg/dL) Final Non-HDL Cholesterol Referenc e Range (mg/dL):
<100 Target level for high risk ASCVD patient
<130 Optimal for general population
130-159 Near optimal for general population
160-189 Borderline High
190-219 High
>=220 Very High LDL, (calculated) 09/12/2024 10:04:28 155 Above high n ormal <=129 (mg/dL) Final LDL Cholesterol Reference Ra nges (mg/dL):
<70 Target level for high risk ASCVD patient
<100 Optimal for general population
100-129 Near optimal for general population
130-159 Borderline high
160-189 High
>=190 Very high Performing Location LABORATORY [facility] - [address] [facility] [address]
--- OUTSIDE RECORDS SUMMARY | 2024-12-01 03:58 | External Medical Summary | Summary of Care ---
Author Name Unknown Organization [facility] Address [address] [facility] [address] Phone [phone] Care Team Providers Care Motor Rebuilder Name Role Phone Lisette Diana DO Primary Care Provider [phone] Reason for Visit * Reason Comments Outpatient Testing Encounter Details Date Type Department Care Team (Late st Contact Info) Description 08/12/2024 10:50 AM EST Laboratory Laboratory [address] [place] [phone] , Specimen Drop Off [address] [place] [address] Arrived Allergies Active Allergy Reactions Criticality Noted Date Comments Amoxicillin Nausea/vomiting Low 10/07/2013 Statins 01/30/2024 Joint/muscle pain documented as of this encounter (statuses as of 08/12/2024) Medications CALTRATE 600+D 600-400 MG-UNIT PO CHEW [...] 1:15 PM EST 4 10/08/19 25 Active Zoster Vac Recomb Adjuvanted 50 MCG/0.5ML Intramuscular Suspension Reconstituted (Shingrix) Inject 0.5 mL into a large muscle now and repeat dose in 60 to 180 days 1 Each 1 4 Active Dicyclomine HCl 10 MG Oral Capsule (Bentyl) TAKE ONE CAPSULE BY MOUTH THREE TIMES A DAY NEEDED FOR CRAMPING, DIARRHEA, OR ABDOMINAL PAIN 300 Capsule 3 05/14/2024 8:17 AM EDT 4 02/05/20 25 Active Benazepril HCl 40 MG Oral Tablet TAKE ONE TABLET BY MOUTH IN THE MORNING 100 Tablet 2 06/10/2024 5:26 PM EST 4 02/29/20 25 Active Breo Ellipta 100-25 MCG/ACT Inhalation Aerosol Powder Breath ActivatedIndicatio ns:Mild persistent asthma without complication INHALE ONE PUFF BY MOUTH EVERY DAY 180 Each 3 07/28/2024 1:26 PM EST 4 Active NIFEdipine ER 60 MG Oral Tablet Extended Release 24 Hour (Adalat CC) Take 1 Tablet by mouth in the morning. 100 Tablet 1 06/20/2024 7:05 AM EST 4 Active Ezetimibe 10 MG Oral Tablet (Zetia) Take 1 Tablet by mouth daily in the morning. 100 Tablet 2 08/11/2024 7:10 AM EST 4 Active Pantoprazole Sodium 40 MG Oral Tablet Delayed Release (Protonix) Take 1 Tablet by mouth in the morning. 90 Tablet 2 08/01/2024 1:58 PM EST 4 Active Fenofibrate 145 MG Oral [...] Capsule by mouth in the morning. Active documented as of this encounter (statuses as of 08/12/2024) Active Problems Problem Noted Date Diagnosed Date Gastroesophageal reflux disease without esophagi tis 01/30/2024 Hyperlipidemia with target LDL less than 100 12/2022 History of breast cancer 12/26/2022 Mild persistent asthma without complication 11/29 Osteopenia of both hips 12/26/2022 Anxiety and depression 12/26/2022 HTN, goal below 140/90 12/26/2022 halfway current use of therapeutic drug 2022 documented as of this encounter (statuses as of 08/12/2024) Resolved Problems Problem Noted Date Diagnosed Date Resolved Date Microalbuminuria 07/04/2023 01/30/2024 Malignant neoplasm of upper- outer quadrant of female breast 10/07/2013 12/26/2022 documented as of this encounter (statuses as of 08/12/2024) Immunizations Name Administration Dates Next Due COVID-19 [...] ages 0-17 years) Not on file 03/04/2024 Comments No Sex and Gender Information Value Date Recorded Sex Assigned at Female 03/02/2023 10:16 AM EDT Legal Sex Female 5:28 AM EST Gender Identity Female 03/02/2023 10:16 AM EDT Sexual Orientation Straight 03/02/2023 10 :16 AM EDT 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 [address] [place] [address] Fabienne Fisher CRNP [address] [place] [address] 09/12/2024 9:30 AM EST Office Visit Family Medicine [address] [place] [phone] Lisette Diana[address] [place] [address] 12/26/2024 2:30 PM EDT Hospital Encounter ENDO [facility], Endoscopy Room [facility] [address] [place] [phone] Dom Negron MD [address] [place] [address] 12/26/2024 2:30 PM EDT - 12/26/2024 3:00 PM EDT Surgery ENDO [facility], Endoscopy Room [facility] [address] [place] [phone] Dom Negron MD [address] [place] [address] COLONOSCOPY FLEXIBLE PROXIMAL DIAGNOSTIC 03/09/2025 8:30 AM EDT Nurse Only Ancillary [address] [place] [address] [place], Nurse [address] [place] [address] Pending Results Name Type Priority Associated Diagnoses Date /Time FECAL OCCULT BLOOD, EIA Lab Routine 0 08/12/2024 10:48 AM EST CLOSTRIDIUM DIFFICILE, PCR Lab Routine 08/12/2024 10:48 AM EST GASTROINTESTINAL PATHOGEN PANEL, STOOL Lab Routine 08/12/2024 10:48 AM EST GASTROINTESTINAL PATHOGEN PANEL PCR Lab Routine 08/12/2024 10:48 AM EST GASTROINTESTINAL PATHOGEN PANEL CULTURE Lab Routine 08/12/2024 10:48 AM EST Scheduled Procedures Name Priority Associated [...] this encounter Medical Devices Implanted Type Area Filter Assembler Device Identifier Shelf Expiration Date Model / Serial / Lot Lens Intraoc 22.0 - [id number] - [id number] Implanted:Qty: 1 on 06/23/2019 by Darrel Garza MD at OR [facility] Left: Eye [employer] LOMB 01/27/2024 [id number] / [id number] / Lens Intraoc 20.5 - [id number] - [id number] Implanted:Qty: 1 on 07/01/2019 by Darrel Garza MD at OR [facility] Right: Eye BAUSCH & LOMB 01/27/2024 [id number] / [id number] / [id number] documented as of this encounter Additional Health Concerns Infection Onset Date Last Indicated Resolved Time C. difficile Rule-Out 08/12/2024 08/12/2024 Gastrointestinal Rule-Out 08/12/2024 08/12/2024 documented as of this encounter Care Teams Motor Rebuilder Relationship Specialty Start Date End Date Lisette Diana DO [address] [place] [address] [place] [phone] PCP - General Internal Medicine 12/26/22 documented as of this encounter
--- OUTSIDE RECORDS SUMMARY | 2024-12-01 03:58 | External Medical Summary ---
Author Name Unknown Address Unknown Organization K01:LABORATORY [facility] [place] - [address] [place] [address] Laboratory Report Ordering Provider Test Date Status FRANK MUNGUIA 09/12/2024 10:04:28 Final Observation Date Value Abnormality Reference (Units ) Status Vitamin B12 09/12/2024 10:04:28 [phone] (pg/mL) Final Performing Location LABORATORY [facility] - [address] [place] [address]
--- OUTSIDE RECORDS SUMMARY | 2024-12-01 03:58 | External Medical Summary | Summary of Care ---
Author Name Unknown Organization [facility] Address [address] [facility] [place] [address] Phone [phone] Care Team Providers Care Cpa Tax Name Role Phone Listete Diana DO Primary Care Provider [phone] Reason for Visit * Reason Onset Date Comments Test Results 08/13/2024 Encounter Details Date Type Department Care Team (Late st Contact Info) Description 08/13/2024 Telephone Gastroenterology, [facility] [address] [place] [address] Fabienne Fisher CRNP [address] [place] [address] Test Results Allergies Active Allergy Reactions Criticality Noted Date Comments Amoxicillin Nausea/vomiting Low 10/07/2013 Statins 01/30/2024 Joint/muscle pain documented as of this encounter (statuses as of 08/13/2024) Medications CALTRATE 600+D 600-400 MG-UNIT PO CHEW [...] Capsule by mouth in the morning. Active Vancomycin HCl 125 MG Oral Capsule (Vancocin) Take 1 Capsule by mouth in the morning and 1 Capsule at noon and 1 Capsule in the evening and 1 Capsule before bedtime. Do all this for 10 days. 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 2022 documented as of this encounter (statuses as of 08/13/2024) Resolved Problems Problem Noted Date Diagnosed Date Resolved Date Microalbuminuria 07/04/2023 01/30/2024 Malignant neoplasm of upper- outer quadrant of female breast 10/07/2013 12/26/2022 documented as of this encounter (statuses as of 08/13/2024) Immunizations Name Administration Dates Next Due COVID-19 [...] 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 Went over teaching with pt and pt voiced understanding. * Telephone Encounter - Ananya Lala CMA - 08/13/2024 10:59 AM EST The results of your stool test reveals that you are positive for C-diff. Clostridium difficile (C. difficile) is a bacterium or germ that normally lives in the stomach and intestines. The bacteria can be harmful if it produces toxins that cause diarrhea and other symptoms. Some people have c. difficile in their intestinal tract but are not sick. A new strain of c. difficile has developed which can make large amounts of toxin that may cause serious illness. C. difficile is spread by stool. Any surface (toilets, handles, bedpans, commode chairs, bedding, and medical equipment) that become contaminated with stool may spread the “spores” which can liveon these surfaces longer than other bacteria. It can be spread from unwashed hands or from unclean items that are shared. When someone touches the dirty item and then touches his/her mouth, (ingesting it,) he/she could get sick. Patients are at risk for c-diff while taking antibiotics as good germs that protect against infection are destroyed, creating an opportunity for an increase in the c-diff toxin. Elderly patients are also at risk due to lowered immunity. Symptoms may include watery diarrhea, belly pain/tenderness, fever, loss of appetite, nausea. To prevent the spread of C-diff we recommend patients and family members wash their hands well withsoap and water after using the bathroom and before eating. Using paper towels to dry your hands is encouraged as reusing towels may have the potential for recontamination. C-diff spores cannot be killed by alcohol based (antibacterial) hand sanitizers. Please maintain good personal hygiene by showering and wearing clean laundered clothing. If clothes or bed linens become soiled with diarrhea, wash them separately in the washing machine with hot water, detergent, and bleach if fabric compatible.Machine dry if possible. Try to stick to one bathroom within your home and avoid sharing with family members if possible. Clean the bathroom with a diluted bleach solution (½ cup of bleach in 1 quart of water.) Be sure to clean and disinfect any object that has been contaminated with stool; faucet handles, flush handles, bedrails, and door knobs. You have been prescribed an antibiotic. (read from MAR) Please remember to take this medication as ordered, with food, and avoid consuming any alcoholic beverages while on antibiotic therapy. Do not use any anti-diarrheal agents (Imodium/Lomotil) unless instructed by your provider. We do not order a test of care stool study unless you remain symptomatic after treatment. Please contact our office if you continue to have symptoms once you have completed your antibiotic course. You may choose to take over the counter pro-biotics capsules/ yogurts, or Kefir smoothies once your antibiotic therapy is completed in attempt to restore the “good bacteria” in your intestinal tract. Please communicate history of c-diff treatment to any of your health regular senior care provider that may beprescribing antibiotic therapy in the future. * Telephone Encounter - Fabienne Fisher CRNP - 08/13/2024 8:36 AM EST Patient is positive for cdiff. I believe this is the first occurrence- please verify. I will call in her antibiotic: Vancomycin 125 mg 4 times daily for 10 days. RX sent to local pharmacy. documented in this encounter Plan of Treatment Upcoming Encounters Date Type Department Care Team (Latest Contact Info) Description 09/02/2024 1:30 PM EST Office Visit Gastroenterology, [facility] [address] [place] [address] [address] Fabienne Fisher CRNP [address] [place] [address] 09/12/2024 9:30 AM EST Office Visit [address] [phone] [place] [address] 12/26/2024 2:30 PM EDT Hospital Encounter ENDO [facility], Endoscopy Room [facility] [address] [place] [phone] Dom Negron MD [address] [place] [address] 12/26/2024 2:30 PM EDT - 12/26/2024 3:00 PM EDT Surgery ENDO [facility], Endoscopy Room [facility] [address] [place] [phone] Dom Negron MD [address] [place] [address] COLONOSCOPY FLEXIBLE PROXIMAL DIAGNOSTIC 03/09/2025 8:30 AM EDT Nurse Only Ancillary [address] [place] [address] [place], Nurse [address] [place] [address] Scheduled Procedures Name Priority Associated Diagnoses Date/Ti me COLONOSCOPY FLEXIBLE PROXIMA L DIAGNOSTIC Recall Bowel habit changes 12/26/2024 2:30 PM EDT Health Maintenance Due Date Last Done Comments *SPIROMETRY ONCE FOR ASTHMA-ADULT 12/29/2022 COVID-19 Vaccine ( season) 2024 12/16/2020, 11/17/2020 Zoster Vaccines (2 of 2) 06/24/2024 04/29/2024, 0702/2024 Adult Wellness Visit 03/04/2025 03/04/2024, 03/02/20 23 [...] this encounter Medical Devices Implanted Type Area Airport Location Manager Device Identifier Shelf Expiration Date Model / Serial / Lot Lens Intraoc 22.0 - [id number] - [id number] Implanted:Qty: 1 on 06/23/2019 by Darrel Garza MD at OR [facility] Left: Eye BAUSCH [employer] LOMB 01/27/2024 [id number] / [id number] / Lens Intraoc 20.5 - [id number] - [id number] Implanted:Qty: 1 on 07/01/2019 by Darrel Garza MD at OR [facility] Right: Eye BAUSCH & LOMB 01/27/2024 [id number] / [id number] / [id number] documented as of this encounter Additional Health Concerns Infection Onset Date Last Indicated Resolved Time C. difficile Rule-Out 08/12/2024 08/12/20242024 12:30 AM EST Gastrointestinal Rule-Out 08/12/2024 08/12/2024 9:55 AM EST C. difficile 08/12/2024 08/12/2024 documented as of this encounter Care Teams Cpa Tax Relationship Specialty Start Date End Date Lisette Diana DO [address] [place] [address] [place] [address] PCP - General Internal Medicine 12/26/22 documented as of this encounter
--- OUTSIDE RECORDS SUMMARY | 2024-12-01 03:58 | External Medical Summary | Summary of Care ---
Author Name Unknown Organization [facility] Address [address] [facility] [place] [address] Phone [phone] Care Team Providers Care Access Services Assistant Name Role Phone Lisette Diana Primary Care Provider Encounter Details Date Type Department Care Team (Late st Contact Info) Description 08/18/2024 Population Health External Data Unspecified Department Allergies Active Allergy Reactions Criticality Noted Date Comments Amoxicillin Nausea/vomiting Low 10/07/2013 Statins 01/30/2024 Joint/muscle pain documented as of this encounter (statuses as of 08/18/2024) Medications CALTRATE 600+D 600-400 MG-UNIT PO CHEW [...] as of this encounter (statuses as of 08/18/2024) Active Problems Problem Noted Date Diagnosed Date Gastroesophageal reflux disease without esophagi tis 01/30/2024 Hyperlipidemia with target LDL less than 100 12/2022 History of breast cancer 12/26/2022 Mild persistent asthma without complication 11/29 Osteopenia of both hips 12/26/2022 Anxiety and depression 12/26/2022 HTN, goal below 140/90 12/26/2022 longterm current use of therapeutic drug 2022 documented as of this encounter (statuses as of 08/18/2024) Resolved Problems Problem Noted Date Diagnosed Date Resolved Date Microalbuminuria 07/04/2023 01/30/2024 Malignant neoplasm of upper- outer quadrant of female breast 10/07/2013 12/26/2022 documented as of this encounter (statuses as of 08/18/2024) Immunizations Name Administration Dates Next Due COVID-19 [...] 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 on file documented as of this encounter Plan of Treatment Upcoming Encounters Date Type Department Care Team (Latest Contact Info) Description 09/02/2024 1:30 PM EST Office Visit Gastroenterology, [facility] [address] [place] [address] Fabienne Fisher CRNP [address] [place] [address] 09/12/2024 9:30 AM EST Office Visit Family Medicine [address] [place] [phone] [address] [place] [address] 12/26/2024 2:30 PM EDT Hospital Encounter ENDO [facility], Endoscopy Room [facility] [address] [place] [phone] Dom Negron MD [address] [place] [address] 12/26/2024 2:30 PM EDT - 12/26/2024 3:00 PM EDT Surgery ENDO [facility], Endoscopy Room [facility] [address] [place] [phone] Dom Negron MD [address] [place] [address] COLONOSCOPY FLEXIBLE PROXIMAL DIAGNOSTIC 03/09/2025 8:30 AM EDT Nurse Only Ancillary [address] [place] [address] [place], Nurse Annual [address] [place] [address] Scheduled Procedures Name Priority Associated Diagnoses Date/Ti [...] this encounter Medical Devices Implanted Type Area Cushion Filler Device Identifier Shelf Expiration Date Model / Serial / Lot Lens Intraoc 22.0 - [id number] - [id number] Implanted:Qty: 1 on 06/23/2019 by Darrel Garza MD at OR [facility] Left: Eye BAUSCH [employer] LOMB 01/27/2024 [id number] / [id number] / Lens Intraoc 20.5 - [id number] - [id number] Implanted:Qty: 1 on 07/01/2019 by Darrel Garza MD at [facility] Right: Eye BAUSCH & LOMB 01/27/2024 [id number] / [id number] / [id number] documented as of this encounter Additional Health Concerns Infection Onset Date Last Indicated Resolved Time C. difficile 08/12/2024 08/12/2024 documented as of this encounter Care Teams Access Services Assistant Relationship Specialty Start Date End Date Lisette Diana DO [address] [place] [address] [place] [phone] PCP - General Internal Medicine 12/26/22 documented as of this encounter
--- OUTSIDE RECORDS SUMMARY | 2024-12-01 03:58 | External Medical Summary ---
Author Name Unknown Address Unknown Organization K01:LABORATORY [facility] [place] - [address] [place] [address] Laboratory Report Ordering Provider Test Date Status FRANK MUNGUIA 09/12/2024 10:04:28 Final Observation Date Value Abnormality Reference (Units ) Status Parathyrin.intact [Mass/volume] in Serum or Plasma 09/12/2024 10:04:28 11 Below low normal 15-65 (pg/mL) Final Performing Location LABORATORY [facility] - [address] [place] [address]
--- OUTSIDE RECORDS SUMMARY | 2024-12-01 03:58 | External Medical Summary | Summary of Care ---
Author Name Unknown Organization [facility] Address [address] [facility] [place] [address] Phone [phone] Care Team Providers Care Instrument Lens Inspector Name Role Phone DianaLisette black Primary Care Provider [phone] Reason for Visit * Reason Comments Follow Up Pt here to f/u for d iarrhea/dark stools. Pt now having regular BM's. No juan stools. Encounter Details Date Type Department Care Team (Latest Contact Info) Description 09/02/2024 1:30 PM EST Office Visit [facility]ology, [facility] [place] [address] Fabienne Fisher CRNP [address] [facility] [place] [address] Clostridioides difficile infection*; Diarrhea, unspecified type Allergies Active Allergy Reactions Criticality Noted Date Comments Amoxicillin Nausea/vomiting Low 10/07/2013 Statins 01/30/2024 Joint/muscle pain documented as of this encounter (statuses as of 09/02/2024) Medications CALTRATE 600+D 600-400 MG-UNIT PO CHEW [...] MOUTH TWICE A DAY 180 Tablet 3 4 1:15 PM EST 10/08/19 24 025 Active Zoster Vac Recomb Adjuvanted 50 MCG/0.5ML Intramuscular Suspension Reconstituted (Shingrix) Inject 0.5 mL into a large muscle now and repeat dose in 60 to 180 days 1 Each 1 01/30/20 24 Active Benazepril HCl 40 MG Oral Tablet TAKE ONE TABLET BY MOUTH IN THE MORNING 100 Tablet 2 4 5:26 PM EST 02/29/20 24 025 Active Breo Ellipta 100-25 MCG/ACT Inhalation Aerosol Powder Breath ActivatedIndicati ons:Mild persistent asthma without complication INHALE ONE PUFF BY MOUTH EVERY DAY 180 Each 3 4 1:26 PM EST 03/12/20 24 Active NIFEdipine ER 60 MG Oral Tablet Extended Release 24 Hour (Adalat CC) Take 1 Tablet by mouth in the morning. 100 Tablet 1 4 7:05 AM EST 03/18/20 24 Active Ezetimibe 10 MG Oral Tablet (Zetia) Take 1 Tablet by mouth daily in the morning. 100 Tablet 2 5 7:10 AM EST 04/30/20 24 Active Pantoprazole Sodium 40 MG Oral Tablet Delayed Release (Protonix) Take 1 Tablet by mouth in the morning. 90 Tablet 2 5 1:58 PM EST 07/14/20 24 Active Fenofibrate 145 MG Oral Tablet [...] Capsule by mouth in the morning. Active Dicyclomine HCl 10 MG Oral Capsule (Bentyl) TAKE ONE CAPSULE BY MOUTH THREE TIMES A DAY NEEDED FOR CRAMPING, DIARRHEA, OR ABDOMINAL PAIN 300 Capsule 3 5 6:42 PM EST 02/05/20 24 025 Discontinued documented as of this encounter (statuses as of 09/02/2024) Active Problems Problem Noted Date Diagnosed Date Gastroesophageal reflux disease without esophagi tis 01/30/2024 Hyperlipidemia with target LDL less than 100 12/2022 History of breast cancer 12/26/2022 Mild persistent asthma without complication 11/29 Osteopenia of both hips 12/26/2022 Anxiety and depression 12/26/2022 HTN, goal below 140/90 12/26/2022 USP current use of therapeutic drug 2022 documented as of this encounter (statuses as of 09/02/2024) Resolved Problems Problem Noted Date Diagnosed Date Resolved Date Microalbuminuria 07/04/2023 01/30/2024 Malignant neoplasm of upper- outer quadrant of female breast 10/07/2013 12/26/2022 documented as of this encounter (statuses as of 09/02/2024) Immunizations Name Administration Dates Next Due COVID-19 [...] Not on file 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 Not on file Not on file documented as of this encounter Last Filed Vital Signs Vital Sign Reading Time Taken Comments Blood Pressure 128/74 09/02/2024 1:11 PM EST Pulse - - Temperature 36.8 °C (98.2 °F) 09/02/2024 1:11 PM ES T Respiratory Rate - - Oxygen Saturation - - Inhaled Oxygen Concentration - - Weight 76.2 kg (168 lb) 09/02/2024 1:11 PM EST Height - - Body Mass Index 30.24 08/11/2024 9:15 AM EST documented in this encounter Progress Notes * Fabienne Fisher LOLY Andres - 09/02/2024 1:30 PM EST Gastroenterology Outpatient Visit 09/02/2024 Referring physician:Lisette Diana DO PCP: Lisette Diana DO Past medical history: GERD + C diff, 08/13/2024--treated with vancomycin Hypertension CC: Diarrhea/Cdiff follow-up HPI: Very pleasant 79-year-old female presents today to the Gastroenterology office in routine follow-up. Initially evaluated by the undersigned approximately 1 month ago. Initially referred due to diarrhea with incontinence starting 05/2024 with intermittent dark stools--possibly related to Kaopectate and iron use. Stool studies came back positive for C diff and she was started on vancomycin. FOBT was negative. 09/02/2024: Today the patient presents feeling well. She is accompanied by her daughter. Notes that since completing the vancomycin her stools have returned back to normal. Denying any dark stools/melena. Currently denies abdominal discomfort/pain, nausea or vomiting. No fever, chills, cough, hematochezia, karen na, or hemoptysis. No symptoms of chest pain or shortness of breath. No lower extremity edema or new skin changes/rashes. Denies lightheadedness/dizziness. Previous GI workup: KUB: N/a Colonoscopy: 11/2018--per the patient unremarkable, told to have a repeat 3-5 years. EGD: N/a CTAP: N/a Social history: Tobacco use: Former, quit 21 years ago ETOH use: None Drug use: None NSAID use: Occasional Family Hx: No known family history of inflammatory bowel disease or GI malignancy. Current Outpatient Medications Medication Sig Dispense Refill [...] MOUTH TWICE A DAY 180 Tablet 3 Benazepril HCl 40 MG Oral Tablet TAKE [...] 1 Capsule by mouth in the morning. Zoster Vac Recomb Adjuvanted 50 MCG/0.5ML Intramuscular Suspension Reconstituted (Shingrix) Inject 0.5 mL into a large muscle now and repeat dose in 60 to 180 days 1 Each 1 No current facility-administered medications for this visit. Past Medical History: Diagnosis Date Anxiety and depression 12/26/2022 Breast cancer (HCC) Coronary artery disease History of breast cancer 12/26/2022 HTN, goal below 140/90 12/26/2022 Hypertension Mild persistent asthma without complication 12/26/2022 Osteoarthritis Osteopenia of both hips 12/26/2022 Past Surgical History: Procedure Laterality Date CARDIAC CATH INJ. FOR CORONARY ANGIOGRAPHY FOREARM/WRIST SURGERY NEC Right 07/2023 UOC MASTECTOMY,PARTIAL, W/AXIL LYMPHADENECTOMY REMOVE CATARACT, INSERT LENS PROSTH Left 06/23/2019 left EXTRACAPSULAR CATARACT REMOVAL WITH INTRAOCULAR LENS performed by Darrel Garza MD at OR [facility] REMOVE CATARACT, INSERT LENS PROSTH Right 07/01/2019 right EXTRACAPSULAR CATARACT REMOVAL WITH INTRAOCULAR LENS performed by Darrel Garza MD at OR [facility] TOTAL ABD HYSTERECTOMY W/WO REMOVAL OF TUBE(S) 1996 Social History Tobacco Use Smoking status: Former Current packs/day: 0.00 Average packs/day: 1 pack/day for 12.0 years (12.0 ttl pk-yrs) Types: Cigarettes Start date: 1990 Quit date: 2002 Years since quittin.1 Smokeless tobacco: Never Vaping Use Vaping status: Never Used Substance Use Topics Alcohol use: Not Currently Comment: rare wine Drug use: No Review of patient's allergies indicates: Allergen Reactions Statins Joint/muscle pain Amoxicillin Nausea/vomiting Review of Systems: See HPI for pertinent positives. All others negative, other than those noted in HPI. Physical Exam: BP 128/74 | Temp 36.8 °C (98.2 °F) | Wt 76.2 kg (168 lb) | BMI 30.24 kg/m² | BSA 1.83 m² GENERAL: Well developed and well nourished in no acute distress. SKIN: No rashes, ulcers, jaundice or spider angiomata. HEENT: Normocephalic, sclera clear, pharynx normal. NECK: Supple, no lymphadenopathy, no masses or thyroid enlargement. LUNGS: Clear to auscultation bilaterally, no respiratory distress or accessory muscles used. HEART: Regular rate & rhythm, no murmurs and no gallops. ABDOMEN: Normal bowel sounds, soft and nontender, no masses or hepatosplenomegaly. EXTREMITIES: No palmar erythema, no ankle edema, no skin discoloration, no clubbing, no cyanosis. NEURO: No lateralizing findings. Sensory/Motor grossly normal. Lab data/imaging study review: Reviewed via chart. Impression/Plan: This is a(n) 79 year old female who is being evaluated in the office for ongoing care/risk management for the below diagnoses. 1. Clostridioides difficile infection (Primary) 2. Diarrhea, unspecified type Diarrhea resolved. No longer having dark stools. Patient should alert the office if diarrhea returns-- will then retest for C diff No longer using Kaopectate or Bentyl. Patient asking for in the Bentyl prescription to be discontinued. Discussed possibly cancelling her colonoscopy now that symptoms have resolved, however patient declined and would like to proceed in the spring. The patient agrees to the above plan and will call with additional questions or concerns. ER with all emergencies advised. Follow Up: Return if symptoms worsen or fail to improve. I spent a total of 20-29 minutes (exact time 20 mins) on the date of service in preparation, delivery, and documentation of the care provided to Verónica Hoffmann excluding any time spent in the performance of separately billed services or time spent by another provider/QHP. LOLY Borrego [facility] This chart was completed in part utilizing [employer] Speech Voice Recognition Software. Grammatical errors, random word insertions, prounoun errors, and incomplete sentences are an occasional consequence of this system due to software limitations, ambient noise, and hardware issues. Any formal questions or concerns about the content, text, or information contained within the body of this dictation should be directly addressed to the provider for clarification. documented in this encounter Nursing Notes * Ananya Lala CMA - 09/02/2024 1:11 PM EST Chief Complaint Patient presents with Follow Up Pt here to f/u for diarrhea/dark stools. Pt now having regular BM's. No juan stools. documented in this encounter Plan of Treatment Upcoming Encounters Date Type Department Care Team (Latest Contact Info) Description 09/12/2024 9:30 AM EST Office Visit Family Medicine [address] [place] [address] [address] [place] [address] 12/26/2024 2:30 PM EDT Hospital Encounter ENDO [facility], Endoscopy Room [facility] [address] [place] [phone] Dom Negron MD [address] [place] [address] 12/26/2024 2:30 PM EDT - 12/26/2024 3:00 PM EDT Surgery ENDO [facility], Endoscopy Room [facility] [address] [place] [phone] Dom Negron MD [address] [place] [address] COLONOSCOPY FLEXIBLE PROXIMAL DIAGNOSTIC 03/09/2025 8:30 AM EDT Nurse Only Ancillary [place] Ju[address] [place] [address] [place], Nurse Annual Wellness [address] [place] [address] [place] [address] Scheduled Procedures Name Priority Associated Diagnoses Date/Ti [...] this encounter Medical Devices Implanted Type Area Rainbow Trout Farm Manager Device Identifier Shelf Expiration Date Model / Serial / Lot Lens Intraoc 22.0 - [id number] - [id number] Implanted:Qty: 1 on 06/23/2019 by Darrel Garza MD at OR [facility] Left: Eye [employer]OMB 01/27/2024 [id number] / [id number] / Lens Intraoc 20.5 - [id number] - [id number] Implanted:Qty: 1 on 07/01/2019 by Darrel Garza MD at OR [facility] Right: Eye 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 difficile 08/12/2024 08/12/2024 documented as of this encounter Care Teams Instrument Lens Inspector Relationship Specialty Start Date End Date Lisette Diana DO [address] [place] [address] [place] [address] PCP - General Internal Medicine 12/26/22 documented as of this encounter"
--- OUTSIDE RECORDS SUMMARY | 2024-12-01 03:58 | External Medical Summary | Summary of Care ---
Author Name Unknown Organization [facility] Address [address] [place] [address] Phone [phone] Care Team Providers Care Crew Attendant Name Role Phone Ezra Marie DO Primary Care Provider + [phone] Reason for Visit * Reason Comments Medication Refill Encounter Details Date Type Department Care Team (Late st Contact Info) Description 09/21/2024 Refill Family Medicine [address] [phone] Ezra Marie [address] [place] [address] Allergies Active Allergy Reactions Criticality Noted Date Comments Amoxicillin Nausea/vomiting Low 10/07/2013 Statins 01/30/2024 Joint/muscle pain documented as of this encounter (statuses as of 09/23/2024) Medications CALTRATE 600+D 600-400 MG-UNIT PO CHEW [...] MOUTH TWICE A DAY 200 Tablet 3 5 Active Carvedilol 6.25 MG Oral Tablet (Coreg) TAKE ONE TABLET BY MOUTH TWICE A DAY 180 Tablet 3 07/01/2024 1:15 PM EST 4 09/21/19 25 Discontinu ed(Refill) documented as of this encounter (statuses as of 09/23/2024) Active Problems Problem Noted Date Diagnosed Date [...] as of this encounter (statuses as of 09/23/2024) Resolved Problems Problem Noted Date Diagnosed Date Resolved Date Microalbuminuria 07/04/2023 01/30/2024 Malignant neoplasm of upper- outer quadrant of female breast 10/07/2013 12/26/2022 documented as of this encounter (statuses as of 09/23/2024) Immunizations Name Administration Dates Next Due COVID-19 [...] Not on file 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 on file Not on file documented as of this encounter Miscellaneous Notes * Telephone Encounter - Inocencio Hwang, [facility] - 09/22/2024 4:07 PM ESTSigned Prescriptions: Disp Refills Carvedilol 6.25 MG Oral Tablet (Coreg) 200 Ta*3 Sig: TAKE ONE TABLET BY MOUTH TWICE A DAYAuthorizing Provider: EZRA MARIEOrdercarrie User: INOCENCIO HWANG---- documented in this encounter Plan of Treatment Upcoming Encounters Date Type Department Care Team (Latest Contact Info) Description 12/26/2024 2:30 PM EDT Hospital Encounter ENDO [facility], Endoscopy Room [facility] [address] [place] [phone] Dom Negron MD [address] [place] [address] 12/26/2024 2:30 PM EDT - 12/26/2024 3:00 PM EDT Surgery ENDO [facility], Endoscopy Room [facility] [address] [place] [phone] Dom Negron MD [address] [place] [address] COLONOSCOPY FLEXIBLE PROXIMAL DIAGNOSTIC 03/09/2025 8:30 AM EDT Nurse Only Ancillary [address] [place] [address] [place], Nurse Annual [address] [place] [address] 04/10/2025 8:50 AM EDT Office Visit Family Medicine [address] [place] [phone] Ezra Marie DO [address] [place] [address] [place] [address] Scheduled Procedures Name Priority Associated Diagnoses Date/Ti [...] this encounter Medical Devices Implanted Type Area Electrical Equipment Assembler Device Identifier Shelf Expiration Date Model / Serial / Lot Lens Intraoc 22.0 - [id number] - [id number] Implanted:Qty: 1 on 06/23/2019 by Darrel Garza MD at OR [facility] Left: Eye [employer] LOMB 01/27/2024 [id number] / [id number] / Lens Intraoc 20.5 - [id number] - [id number] Implanted:Qty: 1 on 07/01/2019 by Darrel Garza MD at [facility] Right: Eye [employer]CH [employer] LOMB 01/27/2024 [id number] / [id number] / [id number] documented as of this encounter Additional Health Concerns Infection Onset Date Last Indicated Resolved Time C. difficile 08/12/2024 08/12/2024 documented as of this encounter Care Teams Crew Attendant Relationship Specialty Start Date End Date Ezra Marie DO [address] [place] [address] [place] [address] PCP - General Internal Medicine 12/26/22 documented as of this encounter
--- OUTSIDE RECORDS SUMMARY | 2024-12-01 03:58 | External Medical Summary ---
Author Name Unknown Address Unknown Organization [id number]:LABORATORY [facility] [place] - [address] [place] [address] Laboratory Report Ordering Provider Test Date Status FRANK MUNGUIA 09/12/2024 10:04:28 Final Deficient: <20 ng/mL
Ins ufficient: 20-29 ng/mL
Recommended/Optimum:30-50 ng/mL

Vitamin D intoxication is rare. If suspicious of Vitamin D toxicity, evaluation of serum Calcium and PTH is recommended. Observation Date Value Abnormality Reference (Units ) Status 25-OH Vitamin D total 09/12/2024 10:04:28 75 >19 (ng/mL) Final Performing Location LABORATORY [facility] - [address] [place] [address]
--- OUTSIDE RECORDS SUMMARY | 2024-12-01 03:59 | External Medical Summary ---
Author Name Unknown Address Unknown Organization [id number]:LABORATORY [facility] [place] - [address] [place] [address] Laboratory Report Ordering Provider Test Date Status JEANIE SORIANO 08/11/2024 10:18:28 Final Observation Date Value Abnormality Reference (Units ) Status MYCODE SPECIMEN-SST 08/11/2024 10:18:28 Freezing of extracted DNA, whole blood and/or serum. Final Performing Location LABORATORY C - [address] [place] [address]
--- OUTSIDE RECORDS SUMMARY | 2024-12-01 03:59 | External Medical Summary | Summary of Care ---
Author Name Unknown Organization [facility] Address [address] [facility] [place] [address] Phone [phone] Care Team Providers Care Child Welfare Caseworker Name Role Phone DianaLisette black Primary Care Provider [phone] Reason for Visit * Reason Comments Outpatient Testing Encounter Details Date Type Department Care Team (Late st Contact Info) Description 08/01/2024 9:30 AM EST Laboratory Laboratory [address] [place] [phone] [place] [address] [employer] Other*[id number]; Decreased renal function; Anemia, unspecified type Allergies Active Allergy Reactions Criticality Noted Date Comments Amoxicillin Nausea/vomiting Low 10/07/2013 Statins 01/30/2024 Joint/muscle pain documented as of this encounter (statuses as of 08/07/2024) Medications ASPIRIN 81 MG PO CHEW None Entered Active VITAMIN B-12 1000 MCG PO TABS 1 tablet daily Active CALTRATE 600+D 600-400 MG-UNIT PO CHEW Take 1 Tablet by mouth in the morning and 1 Tablet before bedtime. Active ANDREW-C 1000-50 MG PO TABS Take by mouth daily. Active OSTEO BI-FLEX ADV DOUBLE ST PO TABS 1 tablet daily Active CENTRUM SILVER ULTRA WOMENS PO TABS Take 1 Tablet by mouth in the morning. Active Probiotic Product (Aqdot) CAPS Capsule Take 1 Cap by mouth daily. Active Zinc 100 MG Oral Tablet Take by mouth. Active CoQ-10 100 MG Oral Capsule Take by mouth. Active Elderberry 500 MG Oral Capsule Take by mouth. Active Vitamin D 50 MCG (2000 UT) Oral Capsule Take 2,000 Units by mouth in the morning. Active Carvedilol [...] daily in the morning. 100 Tablet 2 05/01/2024 6:17 PM EDT 4 Active Pantoprazole Sodium 40 MG Oral [...] 9:46 AM EST 4 07/17/20 25 Active documented as of this encounter (statuses as of 08/07/2024) Active Problems Problem Noted Date Diagnosed Date Gastroesophageal reflux disease without esophagi tis 01/30/2024 Hyperlipidemia with target LDL less than 100 12/2022 History of breast cancer 12/26/2022 Mild persistent asthma without complication 11/29 Osteopenia of both hips 12/26/2022 Anxiety and depression 12/26/2022 HTN, goal below 140/90 12/26/2022 detention current use of therapeutic drug 2022 documented as of this encounter (statuses as of 08/07/2024) Resolved Problems Problem Noted Date Diagnosed Date Resolved Date Microalbuminuria 07/04/2023 01/30/2024 Malignant neoplasm of upper- outer quadrant of female breast 10/07/2013 12/26/2022 documented as of this encounter (statuses as of 08/07/2024) Immunizations Name Administration Dates Next Due COVID-19 [...] Quit: 07/30/2003 Alcohol Use Standard Drinks/Week Comments Yes 0 (1 standard drink = 0.6 oz [...] 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 Not on file Not on file documented as of this encounter Plan of Treatment Upcoming Encounters Date Type Department Care Team (Late st Contact Info) Description 08/11/2024 9:30 AM EST Office Visit Gastroenterology, [facility] [address] [place] [address] Fabienne Fisher CRNP [address] [place] [address] 09/12/2024 9:30 AM EST Office Visit Family Medicine [address] [place] [phone] Lisette [address] [place] [address] 03/09/2025 8:30 AM EDT Nurse Only Ancillary [address] [place] [address] [place], Nurse [address] [place] [address] Scheduled Procedures Name Priority Associated Diagnoses Date/Ti me COLONOSCOPY FLEXIBLE PROXIMAL DIAGNOSTIC Recall Bowel habit changes Health Maintenance Due Date Last Done Comments [...] this encounter Medical Devices Implanted Type Area Marketing Proposal Coordinator Device Identifier Shelf Expiration Date Model / Serial / Lot Lens Intraoc 22.0 - [id number] - [id number] Implanted:Qty: 1 on 06/23/2019 by Darrel Garza MD at OR [facility] Left: Eye [employer]OM[employer] 01/27/2024 [id number] / [id number] / Lens Intraoc 20.5 - [id number] - [id number] Implanted:Qty: 1 on 07/01/2019 by Darrel Garza MD at OR [facility] Right: Eye [employer]CH [employer]OMB 01/27/2024 [id number] / [id number] / [id number] documented as of this encounter Procedures Procedure Name Priority Date/Time Associated Diagnosis Comments MYCODE SST1 Routine 08/01/2024 9:24 AM EST [employer] Other*[id number] MYCODE INITIAL ADULT-PINK Routine 08/01/2024 9:24 AM EST [employer] Other*[id number] MYCODE INITIAL ADULT-2SST Routine 08/01/2024 9:24 AM EST [employer] Other*[id number] ANEMIA REFLEX CHEMISTRY HOLD Routine 08/01/2024 9:24 AM EST Anemia, unspecified type ANEMIA CBC Routine 08/01/2024 9:24 AM EST Anemia, unspecified type DIFFERENTIAL, AUTOMATED Routine 08/01/2024 9:24 AM EST Anemia, unspecified type MYCODE INITIAL ADULT Routine 08/01/2024 9:24 AM EST [employer] Other*[id number] DIFFERENTIAL, AUTOMATED Routine 08/01/2024 9:24 AM EST Anemia, unspecified type BASIC METABOLIC PANEL Routine 08/01/2024 9:24 AM EST Decreased renal function documented in this encounter Results * ANEMIA REFLEX CHEMISTRY HOLD (08/01/2024 9:24 AM EST) Blood Venous blood specimen / Unknown Venipuncture / Unknown 08/01/2024 9:24 AM EST 08/01/2024 9:24 AM EST us Lisette Diana DO LAB BLOOD ORDERABLES Final R esult [facility] [address] [place] [address] * (ABNORMAL) DIFFERENTIAL, AUTOMATED (08/01/2024 9:24 AM EST) WBC 8.59 4.00 - 10.80 K/uL 08/01/2024 2:13 PM EST [facility] Neutrophils % 75.9(H) 40.0 - 75.0 % 08/01/2024 2:13 PM EST [facility] Lymphocytes % 14.3(L) 18.0 - 42.0 % 08/01/2024 2:13 PM EST [facility] Monocytes % 7.1 1.0 - 11.0 % 08/01/2024 2:13 PM EST [facility] Eosinophils % 1.7 0.0 - 6.0 % 08/01/2024 2:13 PM EST [facility] Basophils % 0.5 0.0 - 2.0 % 08/01/2024 2:13 PM EST [facility] Immature Granulocytes % 0.5 0.0 - 2.0 % 08/01/2024 2:13 PM EST [facility] Absolute Neutrophils 6.52 1.80 - 7.70 K/uL 08/01/2024 2:13 PM EST [facility] Absolute Lymphocytes 1.23 1.00 - 4.80 K/ul 08/01/2024 2:13 PM EST [facility] Absolute Monocytes 0.61 0.00 - 1.10 K/uL 08/01/2024 2:13 PM EST [facility] Absolute Eosinophils 0.15 0.00 - 0.70 K/uL 08/01/2024 2:13 PM EST [facility] Absolute Basophils 0.04 0.00 - 0.20 K/uL 08/01/2024 2:13 PM EST [facility] Absolute Immature Granulocytes 0.04 0.00 - 0.20 K/uL 08/01/2024 2:13 PM EST [facility] Blood Venous blood specimen / Unknown Venipuncture / Unknown 08/01/2024 9:24 AM EST 08/01/2024 9:24 AM EST us Lisette Diana DO LAB BLOOD ORDERABLES Final R esult [facility] [address] [place] [address] * ANEMIA CBC (08/01/2024 9:24 AM EST) WBC 8.59 4.00 - 10.80 K/uL 08/01/2024 2:13 PM EST [facility] RBC 4.39 3.85 - 5.15 M/uL 08/01/2024 2:13 PM EST [facility] HGB 13.0 12.0 - 15.3 g/dL 08/01/2024 2:13 PM EST [facility] Comment: Anemia reflex testing triggers on a HGB < 12.0 for Females and HGB < 13.0 for Males in accordance with the WHO Anemia Guidelines Anemia reflex testing triggers on a HGB < 12.0 for Females and HGB < 13.0 for Males in accordance with the WHO Anemia Guidelines HCT 40.7 36.0 - 45.2 % 08/01/2024 2:13 PM EST [facility] MCV 92.7 81.5 - 97.5 fL 08/01/2024 2:13 PM EST [facility] MCH 29.6 27.0 - 34.0 pg 08/01/2024 2:13 PM EST [facility] MCHC 31.9 32.0 - 36.0 g/dL 08/01/2024 2:13 PM EST LAB[facility]ORY [facility] RDW 13.0 11.5 - 15.5 % 08/01/2024 2:13 PM EST LAB[facility]ORY [facility] PLT 363 140 - 400 K/uL 08/01/2024 2:13 PM EST LAB[facility] MPV 9.6 6.6 - 11.1 fL 08/01/2024 2:13 PM EST [facility] nRBCs 0 <=0 /100 WBCs 08/01/2024 2:13 PM EST [facility] Blood Venous blood specimen / Unknown Venipuncture / Unknown 08/01/2024 9:24 AM EST 08/01/2024 9:24 AM EST Lisette Diana DO LAB BLOOD ORDERABLES Final R esult LAB[facility]ATORY [facility] [address] [place] [address] * MYCODE SST2 (08/01/2024 9:24 AM EST) MyCode Specimen Freezing of extracted DNA, whole blood and/or serum. 08/04/2024 10:01 AM EST [facility] Blood Venous blood specimen / Unknown Venipuncture / Unknown 08/01/2024 9:24 AM EST 08/01/2024 9:24 AM EST Adrianna MESA LAB BLOOD ORDERABLES F inal Result [facility] [address] [place] [address] * MYCODE SST1 (08/01/2024 9:24 AM EST) MyCode Specimen Freezing of extracted DNA, whole blood and/or serum. 08/04/2024 10:01 AM EST [facility] Blood Venous blood specimen / Unknown Venipuncture / Unknown 08/01/2024 9:24 AM EST 08/01/2024 9:24 AM EST Adrianna Snyder resmioA LAB BLOOD ORDERABLES F inal Result Performing Organization Address City/[facility]/ZIP Co de Phone Number LAB[facility]ATORY [facility] [address] [place] [address] * MYCODE INITIAL ADULT-PINK (08/01/2024 9:24 AM EST) MyCode Specimen Freezing of extracted DNA, whole blood and/or serum. 08/04/2024 10:01 AM EST [facility]ORY [facility] Blood Venous blood specimen / Unknown Venipuncture / Unknown 08/01/2024 9:24 AM EST 08/01/2024 9:24 AM EST Adrianna Snyder KIMA LAB BLOOD ORDERABLES F inal Result Performing Organization Address [facility] de Phone Number LABORATORY [facility] [address] [place] [address] * (ABNORMAL) BASIC METABOLIC PANEL (08/01/2024 9:24 AM EST) BUN 14 6 - 20 mg/dL 08/02/2024 4:22 AM EST LAB[facility]ORY [facility] CREATININE 0.9 0.5 - 1.0 mg/dL 08/02/2024 4:22 AM EST LAB[facility] EGFR 67 >=60 mL/min 08/02/2024 4:22 AM EST LAB[facility]ORY [facility] Comment:eGFR is calculated b ased on the CKD-EPI 2020 equation. SODIUM 139 135 - 146 mmol/L 08/02/2024 4:22 AM EST [facility] POTASSIUM 4.2 3.5 - 5.1 mmol/L 08/02/2024 4:22 AM EST [facility] CHLORIDE 101 98 - 107 mmol/L 08/02/2024 4:22 AM EST [facility] CO2 24 22 - 32 mmol/L 08/02/2024 4:22 AM EST [facility] ANION GAP 14 7 - 15 mmol/L 08/02/2024 4:22 AM EST [facility] GLUCOSE 97 70 - 120 mg/dL 08/02/2024 4:22 AM EST [facility] CALCIUM 10.5(H) 8.4 - 10.2 mg/dL 08/02/2024 4:22 AM EST [facility] Blood Venous blood specimen / Unknown Venipuncture / Unknown 08/01/2024 9:24 AM EST 08/01/2024 9:24 AM EST Lisette Diana DO LAB BLOOD ORDERABLES Final R esult [facility] [address] [place] [facility] [place] [address] documented in this encounter Visit Diagnoses Diagnosis [employer] Other*[id number] Decreased renal function Unspecified disorder of kidney and ureter Anemia, unspecified type documented in this encounter Care Teams Child Welfare Caseworker Relationship Specialty Start Date End Date Lisette Diana DO [address] [place] [address] [place] [phone] PCP - General Internal Medicine 12/26/22 documented as of this encounter
--- OUTSIDE RECORDS SUMMARY | 2024-12-01 03:59 | External Medical Summary ---
Author Name Unknown Address Unknown Organization K01:LABORATORY [facility] - [facility] [address] [facility] [place] [address] Laboratory Report Ordering Provider Test Date Status YURI SOMMER 08/11/2024 10:18:28 Final Observation Date Value Abnormality Reference (Units ) Status Tissue transglutaminase IgA Ab [Presence] in Serum by Immunoassay 08/11/2024 10:18:28 Negative Negative Final Tissue transglutaminase IgA Ab [Units/volume] in Serum by Immunoassay 08/11/2024 10:18:28 0.8 <7 (U/mL) Final Performing Location LABORATORY [facility] - [facility] [place] [address]
--- OUTSIDE RECORDS SUMMARY | 2024-12-01 03:59 | External Medical Summary ---
Author Name Unknown Address Unknown Organization K01:[facility] - [address] [place] [address] Laboratory Report Ordering Provider Test Date Status YURI SOMMER 08/11/2024 10:18:28 Final Observation Date Value Abnormality Reference (Units ) Status IgA 08/11/2024 10:18:28 238 70-400 (mg /dL) Final Performing Location [facility] - [address] [place] [address]
--- OUTSIDE RECORDS SUMMARY | 2024-12-01 03:59 | External Medical Summary ---
Author Name Unknown Address Unknown Organization K01:LABORATORY [facility] - [address] [place] [facility] [place] [address] Laboratory Report Ordering Provider Test Date Status JEANIE SORIANO 08/11/2024 10:18:28 Final Observation Date Value Abnormality Reference (Units ) Status MYCODE SPECIMEN-SST 08/11/2024 10:18:28 Freezing of extracted DNA, whole blood and/or serum. Final Performing Location LABORATORY C - [address] [place] [address]
--- OUTSIDE RECORDS SUMMARY | 2024-12-01 03:59 | External Medical Summary ---
Author Name Unknown Address Unknown Organization K01:[facility] - [address] [place] [facility] [place] [address] Laboratory Report Ordering Provider Test Date Status YURI SOMMER 08/12/2024 10:48:30 Final Observation Date Value Abnormality Reference (Units) Status Source 08/12/2024 10:48:30 Semi-formed Final Clostridioides difficile toxin and BI-NAP1-027 strain DNA panel - Stool by NAHID with probe detection 08/12/2024 10:48:30 Positive for C. difficile toxin B gene DNA by PCR (Amplified Probe). Presumptive negative for C. difficile 027-NAP1-B1 strain by PCR (Amplified Probe). Abnormal Negative Final Performing Location [facility] - [address] [place] [address]
--- OUTSIDE RECORDS SUMMARY | 2024-12-01 03:59 | External Medical Summary | Summary of Care ---
Author Name Unknown Organization [facility] Address [address] [place] [address] Phone [phone] Care Team Providers Care Retirement Benefits Specialist Name Role Phone Lisette Diana Primary Care Provider [phone] Encounter Details Date Type Department Care Team (Late st Contact Info) Description 08/11/2024 Orders Only Outcomes Research Department [address] [place] [address] Madonna Aaron CHRA [employer] Other*[id number] Allergies Active Allergy Reactions Criticality Noted Date Comments Amoxicillin Nausea/vomiting Low 10/07/2013 Statins 01/30/2024 Joint/muscle pain documented as of this encounter (statuses as of 08/11/2024) Medications ASPIRIN 81 MG PO CHEW None [...] mouth in the morning. 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 use of therapeutic drug 2022 documented as of this encounter (statuses as of 08/11/2024) Resolved Problems Problem Noted Date Diagnosed Date Resolved Date Microalbuminuria 07/04/2023 01/30/2024 Malignant neoplasm of upper- outer quadrant of female breast 10/07/2013 12/26/2022 documented as of this encounter (statuses as of 08/11/2024) Immunizations Name Administration Dates Next Due COVID-19 [...] 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 on file Not on file documented as of this encounter Plan of Treatment Upcoming Encounters Date Type Department Care Team (Latest Contact Info) Description 08/11/2024 9:30 AM EST Office Visit Gastroenterology, [facility] [address] [address] Fabienne Fisher CRNP [address] [place] [address] Gastroenterology Outpatient Visit 09/12/2024 9:30 AM EST Office Visit Family Medicine [address] [place] [phone] Lisette Diana, [address] [place] [address] 03/09/2025 8:30 AM EDT Nurse Only Ancillary [address] [place] [address] [place], Nurse Annual Wellness [address] [place] [address] [place] [address] Scheduled Orders Name Type Priority Associated Diagnoses Orde r Schedule MYCODE SUBSEQUENT ADULT Lab Routine [employer] Other*[id number] Every 6 Months for 2 Occurrences starting 08/11/2024 until 08/31/2025 Scheduled Procedures Name Priority Associated Diagnoses Date/Ti [...] this encounter Medical Devices Implanted Type Area Supervisor/Port Director Device Identifier Shelf Expiration Date Model / Serial / Lot Lens Intraoc 22.0 - [id number] - [id number] Implanted:Qty: 1 on 06/23/2019 by Darrel Garza MD at OR [facility] Left: Eye [employer]OM[employer] 01/27/2024 [id number] / [id number] / Lens Intraoc 20.5 - [id number] - [id number] Implanted:Qty: 1 on 07/01/2019 by Darrel Garza MD at OR [facility] 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
--- OUTSIDE RECORDS SUMMARY | 2024-12-01 03:59 | External Medical Summary | Summary of Care ---
Author Name Unknown Organization [facility] Address [address] [facility] [place] [address] Phone [phone] Care Team Providers Care [employer] Sigma Project Manager Name Role Phone DianaLisette black Primary Care Provider [phone] Reason for Visit * Reason Onset Date Comments Test Results Imaging Study 08/12/2024 Encounter Details Date Type Department Care Team (Late st Contact Info) Description 08/12/2024 Telephone Gastroenterology, [facility] [address] [place] [address] Fabienne Fisher CRNP [address] [place] [address] Test Results Imaging Study Allergies Active Allergy Reactions Criticality Noted Date [...] Hyperlipidemia with target LDL less than 100 12/ 12/2022 History of breast cancer 12/26/2022 Mild persistent asthma without complication 11/29 Osteopenia of both hips 12/26/2022 Anxiety and depression 12/26/2022 HTN, goal below 140/90 12/26/2022 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 Please advise her not to take any Imodium or Kaopectate. I would like her to do a half clean out. - Take (2) 5 mg Dulcolax tablets followed by: - Mix 4 heaping capfuls in 1 Liter of Gatorade - Drink 1 measuring cupful every 10 mins until 1 liter is consumed. - Try to eat a low residue diet/clear/full liquid diet while doing this clean out. documented in this encounter Plan of Treatment Upcoming Encounters Date Type Department Care Team (Latest Contact Info) Description 09/02/2024 1:30 PM EST Office Visit Gastroenterology, [facility] [address] [place] [address] Fabienne Fisher CRNP [address] [place] [address] 09/12/2024 9:30 AM EST Office Visit Family Medicine [address] [place] [phone] [place] [address] 12/26/2024 2:30 PM EDT Hospital Encounter ENDO [facility], Endoscopy Room [facility] [address] [place] [phone] Dom Negron MD [address] [place] [address] 12/26/2024 2:30 PM EDT - 12/26/2024 3:00 PM EDT Surgery ENDO [facility], Endoscopy Room [facility] [address] [place] [phone] Dom Negron MD [address] [place] [address] COLONOSCOPY FLEXIBLE PROXIMAL DIAGNOSTIC 03/09/2025 8:30 AM EDT Nurse Only Ancillary [address] [place] [address] [place], Nurse [address] [place] [address] Scheduled Procedures Name Priority Associated Diagnoses Date/Ti [...] this encounter Medical Devices Implanted Type Area Covered Button Maker Device Identifier Shelf Expiration Date Model / Serial / Lot Lens Intraoc 22.0 - [id number] - [id number] Implanted:Qty: 1 on 06/23/2019 by Darrel Garza MD at [facility] Left: Eye [employer]OM[employer] 01/27/2024 [id number] / [id number] / Lens Intraoc 20.5 - [id number] - [id number] Implanted:Qty: 1 on 07/01/2019 by Darrel Garza MD at [facility] Right: Eye [employer] 01/27/2024 [id number] / [id number] / [id number] documented as of this encounter Care Teams Six Sigma Project Manager Relationship Specialty Start Date End Date Lisette Diana DO [address] [place] [address] [place] [address] PCP - General Internal Medicine 12/26/22 documented as of this encounter
--- OUTSIDE RECORDS SUMMARY | 2024-12-01 03:59 | External Medical Summary | Summary of Care ---
Author Name Unknown Organization [facility] Address [address] [facility] [place] [address] Phone [phone] Care Team Providers Care Blood Bank Order Control Clerk Name Role Phone Lisette Diana DO Primary Care Provider [phone] Reason for Visit * Reason Onset Date Comments Appointment 08/01/2024 colonoscopy Encounter Details Date Type Department Care Team (Late st Contact Info) Description 08/01/2024 Telephone Family Medicine [address] [place] [phone] Lisette Phelan MD [address] [place] [address] [place] [phone] Appointment (colonoscopy) Allergies Active Allergy Reactions Criticality Noted Date Comments Amoxicillin Nausea/vomiting Low 10/07/2013 Statins 01/30/2024 Joint/muscle pain documented as of this encounter (statuses as of 08/01/2024) Medications ASPIRIN 81 MG PO CHEW None [...] mouth in the morning. Active Probiotic Product (Inside Secure) CAPS Capsule Take 1 Cap by mouth [...] as of this encounter (statuses as of 08/01/2024) Active Problems Problem Noted Date Diagnosed Date Gastroesophageal reflux disease without esophagi tis 01/30/2024 Hyperlipidemia with target LDL less than 100 12/2022 History of breast cancer 12/26/2022 Mild persistent asthma without complication 11/29 Osteopenia of both hips 12/26/2022 Anxiety and depression 12/26/2022 HTN, goal below 140/90 12/26/2022 long term care pharmacist current use of therapeutic drug 2022 documented as of this encounter (statuses as of 08/01/2024) Resolved Problems Problem Noted Date Diagnosed Date Resolved Date Microalbuminuria 07/04/2023 01/30/2024 Malignant neoplasm of upper- outer quadrant of female breast 10/07/2013 12/26/2022 documented as of this encounter (statuses as of 08/01/2024) Immunizations Name Administration Dates Next Due COVID-19 [...] 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 Not on file documented as of this encounter Miscellaneous Notes * Telephone Encounter - Lisa Tate OSA - 08/01/2024 2:25 PM EST Pt is scheduled for OV to evaluate if she is healthy enough for procedure DARI Small 08/01/2024 2:25 PM * Telephone Encounter - Lisa Tate OSA - 08/01/2024 2:13 PM EST Lmm DARI Small 08/01/2024 2:13 PM * Telephone Encounter - Priscila Lopez OSA - 08/01/2024 9:31 AM EST Verónica needs scheduled for colonoscopy for- Bowel habit changes [R19.4] - Primary documented in this encounter Plan of Treatment Upcoming Encounters Date Type Department Care Team (Late st Contact Info) Description 08/04/2024 9:30 AM EST Office Visit Gastroenterology, [address] [place] [address] Di Giraldo PA-C [facility] [employer] [place] [address] 09/12/2024 9:30 AM EST Office Visit Family Medicine [address] [place] [phone] Lisette Diana[address] [place] [address] 03/09/2025 8:30 AM EDT Nurse Only Ancillary [address] [place] [address] [place], Nurse [address] [place] [address] Scheduled Procedures Name Priority Associated Diagnoses Date/Ti me COLONOSCOPY FLEXIBLE PROXIMAL DIAGNOSTIC Recall Bowel habit changes Health Maintenance Due Date Last Done Comments *SPIROMETRY ONCE FOR ASTHMA-ADULT 12/29/2022 COVID-19 Vaccine ( season) 2024 12/16/2020, 11/17/2020 Zoster Vaccines (2 of 2) 06/24/2024 04/29/2024, 07/0 02/2024 GFR 01/10/2025 01/11/2024, 11/29, 05/31/2022, Additional history exists Adult Wellness Visit 03/04/2025 03/04/2024, 03/02/20 23 Depression Monitoring 03/04/2025 03/04/2024 Albumin/Creatinine Ratio 12/26/2025 12/26/2022 DXA Scan 02/15/2029 [...] this encounter Medical Devices Implanted Type Area Fitness And Wellness Coordinator Device Identifier Shelf Expiration Date Model / Serial / Lot Lens Intraoc 22.0 - [id number] - [id number] Implanted:Qty: 1 on 06/23/2019 by Darrel Garza MD at [facility] Left: Eye [employer] 01/27/2024 [id number] / [id number] / Lens Intraoc 20.5 - [id number] - [id number] Implanted:Qty: 1 on 07/01/2019 by Darrel Garza MD at OR [facility] Right: Eye [employer] 01/27/2024 [id number] / [id number] / [id number] documented as of this encounter Care Teams Blood Bank Order Control Clerk Relationship Specialty Start Date End Date Lisette Diana DO [address] [place] [address] [place] [phone] PCP - General Internal Medicine 12/26/22 documented as of this encounter
--- OUTSIDE RECORDS SUMMARY | 2024-12-01 03:59 | External Medical Summary ---
Author Name Unknown Address Unknown Organization K01:LABORATORY [facility] - [facility] [address] [facility] [address] Laboratory Report Ordering Provider Test Date Status LIVIER SOMMERISO 08/12/2024 10:48:53 Final Observation Date Value Abnormality Reference (Units ) Status Campylobacter sp DNA.diarrheagenic [Presence] in Stool by NAHID with probe detection 08/12/2024 10:48:53 Negative Negative Final Salmonella sp rpoD gene [Presence] in Stool by NAHID with probe detection 08/12/2024 10:48:53 Negative Negative Final Shigella species+EIEC invasion plasmid antigen H ipaH gene [Presence] in Stool by NAHID with probe detection 08/12/2024 10:48:53 Negative Negative Final Vibrio sp DNA [Identifier] in Specimen by NAHID with probe detection 08/12/2024 10:48:53 Negative Negative Final Yersinia enterocolitica recN gene [Presence] in Stool by NAHID with probe detection 08/12/2024 10:48:53 Negative Negative Final Escherichia coli Stx1 toxin stx1 gene [Presence] in Stool by NAHID with probe detection 08/12/2024 10:48:53 Negative Negative Final Escherichia coli Stx2 toxin stx2 gene [Presence] in Stool by NAHID with probe detection 08/12/2024 10:48:53 Negative Negative Final Norovirus genogroups I and II RNA panel - Stool by NHAID with probe detection 08/12/2024 10:48:53 Negative Negative Final Rotavirus A RNA [Presence] in Stool by NAHID with probe detection 08/12/2024 10:48:53 Negative Negative Final Performing Location LABORATORY [facility] - [facility] [address] [facility] [address]
--- OUTSIDE RECORDS SUMMARY | 2024-12-01 03:59 | External Medical Summary ---
Author Name Unknown Address Unknown Organization K01:LABORATORY [facility] - [address] [place] [address] Laboratory Report Ordering Provider Test Date Status YURI SOMMER 08/12/2024 10:48:53 Final Observation Date Value Abnormality Reference (Units) Status Bacteria identified in Specimen by Culture 08/12/2024 10:48:53 No Aeromonas species or Plesiomonas species isolated. Final Test: Gastrointestinal Patho gen Panel Culture
Specimen Source: Stool
Specimen Type: Stool
Specimen Date: 08/12/2024 1048
Result Date: 08/15/2024 1124
Result Status: Final result
Resulting Lab: LAB[facility]ATORY [facility]
[address]
[place] [id number]

CULTURE

No Aeromonas species or Plesiomonas species isolated.

null Performing Location LABORATORY [facility] - [address] [facility] [address]
--- OUTSIDE RECORDS SUMMARY | 2024-12-01 03:59 | External Medical Summary ---
Author Name Unknown Address Unknown Organization K01:LABORATORY [facility] - [address] [place] [address] Laboratory Report Ordering Provider Test Date Status YURI SOMMER 08/12/2024 10:48:06 Final Observation Date Value Abnormality Reference (Units ) Status Occult Blood (EIA) 08/12/2024 10:48:06 Negative N egative Final Performing Location LABORATORY C - [address] [place] [address]
--- OUTSIDE RECORDS SUMMARY | 2024-12-01 03:59 | External Medical Summary | Summary of Care ---
Author Name Unknown Organization [facility] Address [address] [facility] [place] [address] Phone [phone] Care Team Providers Care Master Lay Out Specialist Name Role Phone DianaLisette black Primary Care Provider [phone] Reason for Visit * Reason Comments Outpatient Testing Encounter Details Date Type Department Care Team (Late st Contact Info) Description 08/01/2024 9:30 AM EST Laboratory Laboratory [address] [place] [phone] [place] [address] [employer] Other*[id number]; Decreased renal function; Anemia, unspecified type Allergies [...] mouth in the morning. 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 file Not on file documented as of this encounter Plan of Treatment Upcoming Encounters Date Type Department Care Team (Late st Contact Info) Description 08/11/2024 9:30 AM EST Office Visit Gastroenterology, [facility] [address] [address] Fabienne Fisher CRNP [address] [place] [address] 09/12/2024 9:30 AM EST Office Visit Family Medicine [address] [place] [phone] Lisette [address] [place] [address] 03/09/2025 8:30 AM EDT Nurse Only Ancillary [address] [place] [address] [place], Nurse [address] [place] [address] Scheduled Procedures Name Priority Associated Diagnoses Date/Ti [...] this encounter Medical Devices Implanted Type Area Wood Hacker Device Identifier Shelf Expiration Date Model / Serial / Lot Lens Intraoc 22.0 - [id number] - [id number] Implanted:Qty: 1 on 06/23/2019 by Darrel Garza MD at OR [facility] Left: Eye [employer] 01/27/2024 [id number] / [id number] / Lens Intraoc 20.5 - [id number] - [id number] Implanted:Qty: 1 on 07/01/2019 by Darrel Garza MD at OR [facility] Right: Eye [employer] 01/27/2024 [id number] / [id number] / [id number] documented as of this encounter Procedures Procedure Name Priority Date/Time Associated Diagnosis Comments MYCODE SST1 Routine 08/01/2024 9:24 AM EST [employer] Other*[id number] MYCODE INITIAL ADULT-PINK Routine 08/01/2024 9:24 AM EST [employer] Other*[id number] MYCODE INITIAL ADULT-2SST Routine 08/01/2024 9:24 AM EST [employer] Other*[id number] ANEMIA REFLEX CHEMISTRY HOLD Routine 08/01/2024 9:24 AM EST Anemia, unspecified type ANEMIA CBC Routine 08/01/2024 9:24 AM EST Anemia, unspecified type DIFFERENTIAL, AUTOMATED Routine 08/01/2024 9:24 AM EST Anemia, unspecified type MYCODE INITIAL ADULT Routine 08/01/2024 9:24 AM EST [employer] Other*[id number] DIFFERENTIAL, AUTOMATED Routine 08/01/2024 9:24 AM EST [...] Final R esult [facility] [address] [place] [address] * (ABNORMAL) DIFFERENTIAL, AUTOMATED (08/01/2024 [...] Final R esult [facility] [address] [place] [address] * ANEMIA CBC (08/01/2024 9:24 AM EST) [...] 36.0 g/dL 08/01/2024 2:13 PM EST LAB[facility] RDW 13.0 11.5 - 15.5 % 08/01/2024 2:13 PM EST LAB[facility] PLT 363 140 - 400 K/uL 08/01/2024 2:13 PM EST LAB[facility] MPV 9.6 6.6 - 11.1 fL 08/01/2024 2:13 PM EST LAB[facility] nRBCs 0 <=0 /100 WBCs 08/01/2024 2:13 PM EST LAB[facility] Blood Venous blood specimen / Unknown Venipuncture / Unknown 08/01/2024 9:24 AM EST 08/01/2024 9:24 AM EST Lisette Diana DO LAB BLOOD ORDERABLES Final R esult LAB[facility] [address] [place] [address] * MYCODE SST2 (08/01/2024 9:24 AM EST) MyCode Specimen Freezing of extracted DNA, whole blood and/or serum. 08/04/2024 10:01 AM EST [facility] Blood Venous blood specimen / Unknown Venipuncture / Unknown 08/01/2024 9:24 AM EST 08/01/2024 9:24 AM EST Adrianna MESA LAB BLOOD ORDERABLES F inal Result LAB[facility]ORY [facility] [address] [place] [address] * MYCODE SST1 (08/01/2024 9:24 AM EST) MyCode Specimen Freezing of extracted DNA, whole blood and/or serum. 08/04/2024 10:01 AM EST LAB[facility] Blood Venous blood specimen / Unknown Venipuncture / Unknown 08/01/2024 9:24 AM EST 08/01/2024 9:24 AM EST Adrianna Snyder Ask ZiggyA LAB BLOOD ORDERABLES F inal Result Performing Organization Address City/[facility]/ZIP Co de Phone Number LABORATORY [facility] [address] [place] [address] * MYCODE INITIAL ADULT-PINK (08/01/2024 9:24 AM EST) MyCode Specimen Freezing of extracted DNA, whole blood and/or serum. 08/04/2024 10:01 AM EST LAB[facility]ORY [facility] Blood Venous blood specimen / Unknown Venipuncture / Unknown 08/01/2024 9:24 AM EST 08/01/2024 9:24 AM EST Adrianna Snyder KIMA LAB BLOOD ORDERABLES F inal Result Performing Organization Address [facility] de Phone Number LAB[facility]ATORY [facility] [address] [place] [address] * (ABNORMAL) BASIC METABOLIC PANEL (08/01/2024 9:24 AM EST) BUN 14 6 - 20 mg/dL 08/02/2024 4:22 AM EST LABORATORY [facility] CREATININE 0.9 0.5 - 1.0 mg/dL 08/02/2024 4:22 AM EST LAB[facility]ORY [facility] EGFR 67 >=60 mL/min 08/02/2024 4:22 AM EST LAB[facility]ORY [facility] Comment:eGFR is calculated b ased on the [...] Final R esult [facility] [address] [place] [facility] [place] [address] documented in this encounter Visit Diagnoses Diagnosis [employer] Research Other*[id number] Decreased renal function Unspecified disorder of kidney and ureter Anemia, unspecified type documented in this encounter Care Teams Master Lay Out Specialist Relationship Specialty Start Date End Date Lisette Diana DO [address] [place] [address] [place] [phone] PCP - General Internal Medicine 12/26/22 documented as of this encounter
--- OUTSIDE RECORDS SUMMARY | 2024-12-01 03:59 | External Medical Summary | Summary of Care ---
Author Name Unknown Organization [facility] Address [address] [facility] [address] [address] Phone [phone] Care Team Providers Care Environmental Field Technician Name Role Phone DianaLisette black Primary Care Provider [phone] Reason for Visit * Reason Comments NEW PATIENT Referred by Dr. Zapata ert Change in Bowel Movements Pt reports irais t her bowels have changed since she had a greasy sandwich. Since then, she has had chronic diarrhea. She also reports that her stool is now black. Encounter Details Date Type Department Care Team (Late st Contact Info) Description 08/11/2024 9:30 AM EST Office Visit Gastroenterology, [facility] [address] [facility] [place] [address] Fabienne Fisher CRNP 132 [facility] [place] [address] Diarrhea, unspecified type*; Dark stools Allergies Active Allergy Reactions Criticality Noted Date Comments Amoxicillin Nausea/vomiting Low 10/07/2013 Statins 01/30/2024 Joint/muscle pain documented as of this encounter (statuses as of 08/11/2024) Medications CALTRATE 600+D 600-400 MG-UNIT PO CHEW [...] Tablet 3 07/01/2024 1:15 PM EST 4 025 Active Zoster Vac Recomb Adjuvanted 50 [...] Capsule 3 05/14/2024 8:17 AM EDT 4 025 Active Benazepril HCl 40 MG Oral Tablet TAKE ONE TABLET BY MOUTH IN THE MORNING 100 Tablet 2 06/10/2024 5:26 PM EST 4 025 Active Breo Ellipta 100-25 MCG/ACT Inhalation [...] Tablet 1 07/21/2024 9:46 AM EST 4 025 Active ZyrTEC Allergy 10 MG Oral Capsule (Cetirizine HCl) Take 1 Capsule by mouth in the morning. Active ASPIRIN 81 MG PO CHEW None Entered Discontin ued(Medic ation List Clean Up) VITAMIN B-12 1000 MCG PO TABS 1 tablet daily Discontin ued(Medic ation List Clean Up) ANDREW-C 1000-50 MG PO TABS Take by mouth daily. Discontin ued(Medic ation List Clean Up) Probiotic Product ([employer]) CAPS Capsule Take 1 Cap by mouth daily. Discontin ued(Medic ation List Clean Up) Zinc 100 MG Oral Tablet Take by mouth. Discontin ued(Medic ation List Clean Up) CoQ-10 100 MG Oral Capsule Take by mouth. Discontin ued(Medic ation List Clean Up) Vitamin D 50 MCG (1999) Oral Capsule Take 2,000 Units by mouth in the morning. 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 2022 [...] Date Smoking Tobacco: Former Cigarettes 1 12 2002 Smokeless Tobacco: Never Quit: 07/30/2003 Alcohol [...] Not on file 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 file Not on file documented as of this encounter Last Filed Vital Signs Vital Sign Reading Time Taken Comments Blood Pressure 125/62 08/11/2024 9:15 AM EST Pulse 80 08/11/2024 9:15 AM EST Temperature 36.6 °C (97.9 °F) 08/11/2024 9:15 AM ES T Respiratory Rate - - Oxygen Saturation - - Inhaled Oxygen Concentration - - Weight 75 kg (165 lb 6.4 oz) 08/11/2024 9:15 AM EST Height 158.8 cm (5' 2.5") 08/11/2024 9:15 AM EST Body Mass Index 29.77 08/11/2024 9:15 AM EST documented in this encounter Progress Notes * Fabienne Fisher CRNP - 08/11/2024 9:30 AM EST Gastroenterology Outpatient Visit 08/11/2024 Referring physician:Lisette Diana DO PCP: Lisette Diana DO Past medical history: GERD Hypertension CC: Diarrhea, tarry stools HPI: Very pleasant 79-year-old female presents today to the Gastroenterology office as a new patient after being referred by her PCP due to a change in bowel habits. She is accompanied by her granddaughter. After Thanksgiving she started having alternating diarrhea and constipation. Symptoms were initially triggered by eating a large greasy sandwich-symptoms resolved spontaneously. At [place] time is visiting family. [place] the urge to go the bathroom but when she got up she was unable to make it and had an episode of incontinence. Noted that the stool was applesauce consistency and very dark/black in color. After this occurrence she was having frequent bowel movements, 10+ a day that were watery in consistency. No pain in the abdomen or rectum. She started taking Kaopectate, takes this 3 times daily. This has helped reduce her bowel movementsto 2-3 times per day but still has soft/applesauce like consistency stools. Currently denies abdominal discomfort/pain, nausea or vomiting. No history of jaundice. No fever, chills, cough. No symptoms of chest pain or shortness of breath. No lower extremity edema or new skinchanges/rashes. Denies lightheadedness/dizziness. Recent hemoglobin was stable at 13. She formally followed with a residential sales executive in [facility]. Her last colonoscopy was in 2019 per the patient she is due to have a repeat. Notes that she was getting colonoscopies every 3-5 years. Patient is compliant with all medications, and offers no side effects. Medications tried for above complaint: Kaopectate Previous GI workup: KUB: N/a Colonoscopy: 11/2018--per [...] MOUTH TWICE A DAY 180 Tablet 3 Dicyclomine HCl 10 MG Oral Capsule (Bentyl) TAKE ONE CAPSULE BY MOUTH THREE TIMES A DAY NEEDED FOR CRAMPING, DIARRHEA, OR ABDOMINAL PAIN 300 Capsule 3 Benazepril HCl 40 MG Oral Tablet [...] performed by Darrel Garza MD at OR [facility] REMOVE CATARACT, INSERT LENS PROSTH Right 07/01/2019 right EXTRACAPSULAR CATARACT REMOVAL WITH INTRAOCULAR LENS performed by Darrel Garza MD at OR [facility] TOTAL ABD HYSTERECTOMY W/WO REMOVAL OF TUBE(S) 1996 Social History Tobacco Use Smoking status: Former Current packs/day: 0.00 Average packs/day: 1 pack/day for 12.0 years (12.0 ttl pk-yrs) Types: Cigarettes Start date: 1990 Quit date: 2002 Years since quittin.0 Smokeless tobacco: Never Vaping Use Vaping status: Never Used Substance Use Topics Alcohol use: Not Currently Comment: rare wine Drug use: No Review of patient's allergies indicates: Allergen Reactions Statins Joint/muscle pain Amoxicillin Nausea/vomiting Review of Systems: See HPI for pertinent positives. All others negative, other than those noted in HPI. Physical Exam: BP 125/62 | Pulse 80 | Temp 36.6 °C (97.9 °F) | Ht 1.588 m (5' 2.5") | Wt 75 kg (165 lb 6.4 oz) |BMI 29.77 kg/m² | BSA 1.82 m² GENERAL: Well developed and well nourished [...] care/risk management for the below diagnoses. 1. Diarrhea, unspecified type (Primary) 2. Dark stools Diarrhea starting in May 2024--etiology unclear at this time. Noting dark stools, questionable melena. Hemoglobin has been stable. Diarrhea etiology unclear at this time Recommend ruling out infection with stool studies. Will also perform an FOBT-to check for blood in the stools. Black stools possibly due to TID Kaopectate use as well as iron in her multivitamin. KUB ordered to assess stool burden,? Overflow diarrhea-- If constipation confirmed will do a clean out If stool studies come back unremarkable will consider Imodium use Colonoscopy ordered--rule out microscopic colitis, patient is on an SSRI as well as long-term PPI use, occasional NSAID use. Pending workup considerations for EGD versus abdominal ultrasound versus CTAP The patient agrees to the above plan and will call with additional questions or concerns. ER with all emergencies advised. Follow-up: Return in about 3 weeks (around 09/01/2024). | Check-out note: -Labs -KUB -Colon I spent a total of Greater than 55 mins (exact time 60 mins) on the date of service in preparation,delivery, and documentation of the care provided to Verónica Hoffmann excluding any time spent in the performance of separately billed services or time spent by another provider/QHP. LOLY Borrego [facility] This chart was completed in part utilizing [employer] Speech Voice Recognition Software. Grammatical errors, random word insertions, prounoun errors, and incomplete sentences are an occasional consequence of this system due to software limitations, ambient noise, and hardware issues. Any formal questions or concerns about the content, text, or information contained within the body of this dictation should be directly addressed to the provider for clarification. documented in this encounter Plan of Treatment Upcoming Encounters Date Type Department Care Team (Latest Contact Info) Description 08/11/2024 10:30 AM EST Imaging Radiology [facility] [address] Arrived 08/11/2024 10:40 AM EST [address], [address] [phone] [facility] [place] [address] 09/02/2024 1:30 PM EST Office Visit Gastroenterology, [facility] 132 [facility] [place] [address] Fabienne Fisher CRNP 132 [facility] [place] [address] 09/12/2024 9:30 AM EST Office Visit Family [address] [phone] [place] [address] 12/26/2024 2:30 PM EDT Hospital Encounter ENDO [facility], Endoscopy Room [facility] [address] [place] [phone] Dom Negron MD [address] [place] [address] 12/26/2024 2:30 PM EDT - 12/26/2024 3:00 PM EDT Surgery ENDO [facility], Endoscopy Room [facility] [address] [place] [phone] Dom Negron MD [address] [place] [address] COLONOSCOPY FLEXIBLE PROXIMAL DIAGNOSTIC 03/09/2025 8:30 AM EDT Nurse Only Ancillary [address] [place] [address] [place], Nurse [address] [place] [address] Pending Results Name Type Priority Associated Diagnoses Date /Time XR ABDOMEN 1 VIEW Medical Imaging Routine 9:54 AM EST Scheduled Orders Name Type Priority Associated Diagnoses Orde r Schedule GASTROINTESTINAL PATHOGEN PANEL, STOOL Lab Routine Expected: 08/11/2024, Expires: 08/11/2025 CLOSTRIDIUM DIFFICILE, PCR Lab Routine Expected: 08/11/2024, Expires: 08/11/2025 FECAL OCCULT BLOOD, EIA Lab Routine E xpected: 08/11/2024, Expires: 08/11/2025 TISSUE TRANSGLUTAMINASE IGA ANTIBODY Lab Routine Expected: 08/11/2024, Expires: 08/11/2025 IGA Lab Routine Expected: 08/11/2024, Expires: 08/11/2025 COLONOSCOPY, DIAGNOSTIC (RECTUM) Procedures Routine Ordered: 08/11/2024 Scheduled Procedures Name Priority Associated Diagnoses Date/Ti [...] this encounter Medical Devices Implanted Type Area Information Security Risk Analyst Device Identifier Shelf Expiration Date Model / Serial / Lot Lens Intraoc 22.0 - [id number] - [id number] Implanted:Qty: 1 on 06/23/2019 by Darrel Garza MD at OR [facility] Left: Eye [employer]OM[employer] 01/27/2024 [id number] / [id number] / Lens Intraoc 20.5 - [id number] - [id number] Implanted:Qty: 1 on 07/01/2019 by Darrel Garza MD at OR [facility] Right: Eye [employer] LOMB 01/27/2024 [id number] / [id number] / [id number] documented as of this encounter Visit Diagnoses Diagnosis Diarrhea, unspecified type- Primary Dark stools Nonspecific abnormal finding in stool contents Bowel habit changes Other symptoms involving digestive system documented in this encounter Care Teams Environmental Field Technician Relationship Specialty Start Date End Date Lisette Diana DO [address] [place] [address] [place] [address] PCP - General Internal Medicine 12/26/22 documented as of this encounter
--- OUTSIDE RECORDS SUMMARY | 2024-12-01 03:59 | External Medical Summary | Summary of Care ---
Author Name Unknown Organization [facility] Address [address] [place] [place] [place] [address] Phone [phone] Care Team Providers Care Laundry Presser Name Role Phone DianaLisette black Primary Care Provider + [phone] Reason for Visit * Reason Comments Outpatient Testing Encounter Details Date Type Department Care Team (Late st Contact Info) Description 08/11/2024 10:40 AM EST Laboratory Laboratory, [facility] [address] [place] [address] [facility] [address] [place] [address] [employer] Other*[id number] Allergies Active Allergy Reactions Criticality Noted Date [...] No 03/04/2024 Does the household have a [facility] health[facility] source of income? 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 Not on file Not on file documented as of this encounter Plan of Treatment Upcoming Encounters Date Type Department Care Team (Latest Contact Info) Description 09/02/2024 1:30 PM EST Office Visit Gastroenterology, [facility] 132 [place] [address] Fabienne Fisher CRNP [address] [place] [address] 09/12/2024 9:30 AM EST Office Visit Family Medicine [address] [place] [phone] Lisette Diana[address] [place] [address] 12/26/2024 2:30 PM EDT Hospital Encounter ENDO [facility], Endoscopy Room [facility] [address] [place] [phone] Dom Negron MD [address] [place] [address] 12/26/2024 2:30 PM EDT - 12/26/2024 3:00 PM EDT Surgery ENDO OSS, Endoscopy Room [facility] [address] [place] [phone] Dom Negron MD [address] [place] [address] COLONOSCOPY FLEXIBLE PROXIMAL DIAGNOSTIC 03/09/2025 8:30 AM EDT Nurse Only Ancillary [address] [place] [address] [place], Nurse Annual [address] [place] [address] Pending Results Name Type Priority Associated Diagnoses Date /Time MYCODE SUBSEQUENT ADULT Lab Routine [employer] Other*[id number] 08/11/2024 10:18 AM EST TISSUE TRANSGLUTAMINASE IGA ANTIBODY Lab Routine 08/11/2024 10:18 AM EST IGA Lab Routine 08/11/2024 10: 18 AM EST MYCODE SST1 Lab Routine [employer] Other*[id number] 08/11/2024 10:18 AM EST MYCODE SST2 Lab Routine [employer] Other*[id number] 08/11/2024 10:18 AM EST Scheduled Procedures Name Priority Associated Diagnoses Date/Ti me COLONOSCOPY FLEXIBLE PROXIMA L DIAGNOSTIC Recall Bowel habit changes 12/26/2024 2:30 PM EDT Health Maintenance Due Date Last Done Comments *SPIROMETRY ONCE FOR ASTHMA-ADULT 12/29/2022 COVID-19 Vaccine (3 - season) 2024 12/16/2020, 11/17/2020 Zoster Vaccines [...] this encounter Medical Devices Implanted Type Area Medical Billing Instructor Device Identifier Shelf Expiration Date Model / Serial / Lot Lens Intraoc 22.0 - [id number] - [id number] Implanted:Qty: 1 on 06/23/2019 by Darrel Garza MD at OR [facility] Left: Eye [employer]OM[employer] 01/27/2024 [id number] / [id number] / Lens Intraoc 20.5 - [id number] - [id number] Implanted:Qty: 1 on 07/01/2019 by Darrel Garza MD at [facility] Right: Eye [employer] 01/27/2024 [id number] / [id number] / [id number] documented as of this encounter Visit Diagnoses Diagnosis [employer] Other*[id number] Bowel habit changes Other symptoms involving digestive system documented in this encounter Care Teams Laundry Presser Relationship Specialty Start Date End Date Lisette Diana DO [address] [place] [address] [place] [address] PCP - General Internal Medicine 12/26/22 documented as of this encounter
--- OUTSIDE RECORDS SUMMARY | 2024-12-01 04:00 | External Medical Summary ---
Author Name Unknown Address Unknown Organization K01:[facility] - [address] [place] [place] [address] Laboratory Report Ordering Provider Test Date Status ODESSA CROOK 08/01/2024 09:24:26 Final Observation Date Value Abnormality Reference (Units ) Status MYCODE SPECIMEN-SST 08/01/2024 09:24:26 Freezing of extracted DNA, whole blood and/or serum. Final Performing Location [facility] - [address] [place] [address]
--- OUTSIDE RECORDS SUMMARY | 2024-12-01 04:00 | External Medical Summary | Summary of Care ---
Author Name Unknown Organization [facility] Address [address] [facility] [place] [address] Phone [phone] Care Team Providers Care Crusher And Blender Operator Name Role Phone Lisette Diana DO Primary Care Provider [phone] Reason for Visit * Reason Onset Date Comments Appointment 08/01/2024 colonoscopy Encounter Details Date Type Department Care Team (Late st Contact Info) Description 08/01/2024 Telephone Family Medicine [address] [place] [address] Lisette Phelan MD [address] [place] [address] [place] [phone] Appointment (colonoscopy) Allergies Active [...] mouth in the morning. Active Probiotic Product (Antenova) CAPS Capsule Take 1 Cap by mouth [...] mouth in the morning. 90 Tablet 2 4 Active Fenofibrate 145 MG Oral Tablet (Tricor) Take 1 Tablet by mouth in the morning. 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 Not on file Not on file documented as of this encounter Miscellaneous Notes * Telephone Encounter - Priscila Lopez OSA - 08/01/2024 9:31 AM EST Verónica romero scheduled for colonoscopy for- Bowel habit changes [R19.4] - Primary documented in this encounter Plan of Treatment Upcoming Encounters Date Type Department Care Team (Late st Contact Info) Description 09/12/2024 9:30 AM EST Office Visit Family Medicine [address] [place] [phone] [address] [place] [address] 03/09/2025 8:30 AM EDT Nurse Only Ancillary [address] [place] [address] [place], Nurse [address] [place] [address] Health Maintenance Due Date Last Done Comments [...] this encounter Medical Devices Implanted Type Area Restaurant Delivery Driver Device Identifier Shelf Expiration Date Model / Serial / Lot Lens Intraoc 22.0 - [id number] - [id number] Implanted:Qty: 1 on 06/23/2019 by Darrel Garza MD at OR [facility] Left: Eye [employer]OM[employer] 01/27/2024 [id number] / [id number] / Lens Intraoc 20.5 - [id number] - [id number] Implanted:Qty: 1 on 07/01/2019 by Darrel Garza MD at OR [facility] Right: Eye [employer]OM[employer] 01/27/2024 [id number] / [id number] / [id number] documented as of this encounter Care Teams Crusher And Blender Operator Relationship Specialty Start Date End Date Lisette Diana DO [address] [place] [address] [place] [address] PCP - General Internal Medicine 12/26/22 documented as of this encounter
--- OUTSIDE RECORDS SUMMARY | 2024-12-01 04:00 | External Medical Summary ---
Author Name Unknown Address Unknown Organization K01:[facility] - [address] [place] [address] Laboratory Report Ordering Provider Test Date Status ODESSA CROOK 08/01/2024 09:24:26 Final Observation Date Value Abnormality Reference (Units ) Status [employer] SPECIMEN-LAV 08/01/2024 09:24:26 Freezing of extracted DNA, whole blood and/or serum. Final Performing Location LABORATORY C - [address] [place] [address]
--- OUTSIDE RECORDS SUMMARY | 2024-12-01 04:00 | External Medical Summary | Summary of Care ---
Author Name Unknown Organization [facility] Address [address] [facility] [place] [address] Phone [phone] Care Team Providers Care Wood Milling Machine Operator Name Role Phone Lisette Diana DO Primary Care Provider [phone] Reason for Visit * Reason Comments Medication Discussion Encounter Details Date Type Department Care Team (Late st Contact Info) Description 07/15/2024 6:00 PM [facility], [address] [place] [address] Pharmacist2, [address] [place] [address] Encounter for medication review* Allergies Active Allergy Reactions Criticality Noted Date Comments Amoxicillin Nausea/vomiting Low 10/07/2013 Statins 01/30/2024 Joint/muscle pain documented as of this encounter (statuses as of 07/15/2024) Medications ASPIRIN 81 MG PO CHEW None [...] mouth in the morning. Active Probiotic Product (Olark) CAPS Capsule Take 1 Cap by mouth [...] 1:15 PM EST 4 10/08/19 25 Active Sertraline HCl 100 MG Oral Tablet (Zoloft) TAKE ONE AND ONE-HALF TABLETS BY MOUTH IN THE MORNING 135 Tablet 1 04/21/2024 12:30 PM EDT 4 11/01/19 25 Active Zoster Vac Recomb Adjuvanted 50 [...] BY MOUTH EVERY DAY 180 Each 3 06/30/2024 5:42 PM EST 4 Active NIFEdipine ER 60 [...] mouth in the morning. 90 Tablet 2 Active documented as of this encounter (statuses as of 07/15/2024) Active Problems Problem Noted Date Diagnosed Date Gastroesophageal reflux disease without esophagi tis 01/30/2024 Hyperlipidemia with target LDL less than 100 12/2022 History of breast cancer 12/26/2022 Mild persistent asthma without complication 11/29 Osteopenia of both hips 12/26/2022 Anxiety and depression 12/26/2022 HTN, goal below 140/90 12/26/2022 [facility] current use of therapeutic drug 2022 documented as of this encounter (statuses as of 07/15/2024) Resolved Problems Problem Noted Date Diagnosed Date Resolved Date Microalbuminuria 07/04/2023 01/30/2024 Malignant neoplasm of upper- outer quadrant of female breast 10/07/2013 12/26/2022 documented as of this encounter (statuses as of 07/15/2024) Immunizations Name Administration Dates Next Due COVID-19 mRNA, LNP-s, No Pre serve, 2-Dose Series (Moderna) 12/16/2020,11/17/2020 Pneumococcal Conjugate Vacc, 13 Valent (Prevnar) 06/17/2018 Pneumococcal Polysaccharide PPV23 (Pneumovax) ,06/28/2010 Seasonal Influenza, Quadrivalent Hd (Fluzone Hd) 07/04/2023 Seasonal Influenza, Quadrivalent Hd, 65+ Yrs 04/2022 TDAP, Age 7 and older, IM (Adacel) 12/26/2022 Zoster Vaccine Recombinant (Shingrix) 02/04/2024 documented as of this encounter Social History Tobacco Use Types Packs/Day Years Used Date Smoking Tobacco: Former Cigarettes 1 12 1 991 - 2003 Smokeless Tobacco: Never Quit: 07/30/2003 Alcohol Use [...] 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 Rita Fofana RPH Clinical Pharmacist 07/15/2024, 8:33 PM documented in this encounter Plan of Treatment Upcoming Encounters Date Type Department Care Team (Late st Contact Info) Description 09/12/2024 9:30 AM EST Office Visit Family Medicine [address] [place] [phone] Lisette Diana, [address] [place] [address] 03/09/2025 8:30 AM EDT Nurse Only Ancillary [address] [place] [address] [place], Nurse [address] [place] [address] Health Maintenance Due Date Last Done Comments *SPIROMETRY ONCE FOR ASTHMA-ADULT 12/29/2022 COVID-19 Vaccine ( season) 2024 12/16/2020, 11/17/2020 Influenza Vaccine (FLU shot) (#1) 2024 07/04/2023, 06/08/2022 Zoster Vaccines (2 of 2) 03/31/2024 02/04/2024 GFR 01/10/2025 01/11/2024, 11/29, 05/31/2022, Additional history exists Adult Wellness Visit 03/04/2025 03/04/2024, 03/02/20 Depression Monitoring 03/04/2025 03/04/2024 Albumin/Creatinine Ratio 12/26/2025 12/26/2022 DXA Scan 02/15/2029 02/15/2022, 01/28, 02/08/2022, Additional history exists DTap/Tdap Vaccines (2 - Td or Tdap) 12/26/2032 12/26/2022 Pneumococcal Vaccine: 65+ Years Completed 06/17/2018, 06/02/2016, 06/28/2010 HPV (Gardasil) Vaccine Aged Out No lo nger eligible based on patient's age to complete this topic Hepatitis B Vaccine Aged Out No longe r eligible based on patient's age to complete this topic MENINGOCOCCAL (MENACTRA/MENVEO) Aged Out No longer eligible based on patient's age to complete this topic documented as of this encounter Medical Devices Implanted Type Area Gore Inserter Device Identifier Shelf Expiration Date Model / Serial / Lot Lens Intraoc 22.0 - [id number] - [id number] Implanted:Qty: 1 on 06/23/2019 by Darrel Garza MD at OR [facility] Left: Eye BAUSCH & LOMB 01/27/2024 [id number] / [id number] / Lens Intraoc 20.5 - [id number] - [id number] Implanted:Qty: 1 on 07/01/2019 by Darrel Garza MD at OR [facility] Right: Eye BAUSCH & LOMB 01/27/2024 [id number] / [id number] / [id number] documented as of this encounter Visit Diagnoses Diagnosis Encounter for medication review- Primary Encounter for long-term (current) use of other medications documented in this encounter Care Teams Wood Milling Machine Operator Relationship Specialty Start Date End Date Lisette Diana DO [address] [place] [address] [place] [address] PCP - General Internal Medicine 12/26/22 documented as of this encounter
--- OUTSIDE RECORDS SUMMARY | 2024-12-01 04:00 | External Medical Summary | Summary of Care ---
Author Name Unknown Organization [facility] Address [address] [facility] [place] [address] Phone [phone] Care Team Providers Care Area Mechanic Name Role Phone DianaLisette lback Primary Care Provider Reason for Visit * Reason Onset Date Comments Pharmacy Questions 07/15/2024 Encounter Details Date Type Department Care Team (Late st Contact Info) Description 07/15/2024 Telephone Pharmacy, [place] [place] [phone] Rita Fofana, [facility] [address] [facility] [place] [address] Pharmacy Questions Allergies Active Allergy Reactions Criticality Noted Date Comments Amoxicillin Nausea/vomiting Low 10/07/2013 Statins 01/30/2024 Joint/muscle pain documented as of this encounter (statuses as of 07/16/2024) Medications ASPIRIN 81 MG PO CHEW None [...] mouth in the morning. Active Probiotic Product (Conkwest) CAPS Capsule Take 1 Cap by mouth [...] the morning. 90 Tablet 2 4 Active Ventolin HFA 108 (90 Base) MCG/ACT Inhalation Aerosol SolutionIndication s:Mild persistent asthma without complication Inhale 2 Puffs by mouth every 4 hours as needed for Shortness of Breath. 18 g 11 4 Active documented as of this encounter (statuses as of 07/16/2024) Active Problems Problem Noted Date Diagnosed Date Gastroesophageal reflux disease without esophagi tis 01/30/2024 Hyperlipidemia with target LDL less than 100 12/2022 History of breast cancer 12/26/2022 Mild persistent asthma without complication 11/29 Osteopenia of both hips 12/26/2022 Anxiety and depression 12/26/2022 HTN, goal below 140/90 12/26/2022 intermodal customer service current use of therapeutic drug 2022 documented as of this encounter (statuses as of 07/16/2024) Resolved Problems Problem Noted Date Diagnosed Date Resolved Date Microalbuminuria 07/04/2023 01/30/2024 Malignant neoplasm of upper- outer quadrant of female breast 10/07/2013 12/26/2022 documented as of this encounter (statuses as of 07/16/2024) Immunizations Name Administration Dates Next Due COVID-19 [...] 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 I have corrected it. I will send mail order a message to fill only if patient requests it. Thank you. * Telephone Encounter - Lisette Diana DO - 07/16/2024 1:45 PM EST Why do you want to send this script to [facility]? * Telephone Encounter - Rita Fofana [facility] - 07/15/2024 8:05 PM EST [facility] contacted patient for comprehensive medication review (CMR) on behalf of [facility]. Patient has a maintenance inhaler but no active Rx for a rescue inhaler. Consider prescribing at minimum to keep on file at pharmacy. Rx pended if appropriate. Thanks, Rita Fofana RP Clinical Pharmacist 07/15/2024, 8:06 PM documented in this encounter Plan of Treatment Upcoming Encounters Date Type Department Care Team (Late st Contact Info) Description 09/12/2024 9:30 AM EST Office Visit Family Medicine [address] [place] [phone] Lisette Diana DO [address] [place] [address] [place] [address] 03/09/2025 8:30 AM EDT Nurse Only Ancillary [address] [place] [address] [place], Nurse [address] [place] [address] Health Maintenance Due Date Last Done Comments [...] this encounter Medical Devices Implanted Type Area Speed Operator Device Identifier Shelf Expiration Date Model / Serial / Lot Lens Intraoc 22.0 - [id number] - [id number] Implanted:Qty: 1 on 06/23/2019 by Darrel Garza MD at OR [facility] Left: Eye BAUSCH & LOMB 01/27/2024 [id number] / [id number] / Lens Intraoc 20.5 - [id number] - [id number] Implanted:Qty: 1 on 07/01/2019 by Darrel Garza MD at OR [facility] Right: Eye BAUSCH & LOMB 01/27/2024 [id number] / [id number] / [id number] documented as of this encounter Visit Diagnoses Diagnosis Mild persistent asthma without complication- Primary Unspecified asthma documented in this encounter Care Teams Area Mechanic Relationship Specialty Start Date End Date Lisette Diana DO [address] [place] [address] [place] [address] PCP - General Internal Medicine 12/26/22 documented as of this encounter
--- OUTSIDE RECORDS SUMMARY | 2024-12-01 04:00 | External Medical Summary | Summary of Care ---
Author Name Unknown Organization [facility] Address [address] [place] [facility] [place] [address] Phone [phone] Care Team Providers Care Airplane Navigator Name Role Phone Lisette Diana DO Primary Care Provider [phone] Reason for Referral * Ancillary Services (Within 10 days (routine)) - Authorized Specialty Diagnoses / Procedures Referred By Edwin soares Referred To Contact Gastroenterology Diagnoses Bowel habit changes Lisette Phelan MD [address] [place] [address] [place] [phone] Phone: tel: fax: Referral ID Status Reason Start Date Expiration Date Visits Requested Visits Authorized [id number] Authorized Ancillary Services Required 08/01/2024 999 999 Question Answer Referral Priority Within 10 days (routine) Where should this appointment be scheduled? [facility] Comments ALERT: Do not order for pediatric patients (18 years or younger). Cancel off screen and order PEDS GASTROENTEROLOGY CONSULT (Type: 1 visit only-Evaluate and Treat) The following Pt. Instructions are available: - Gastro Colonoscopy Prep Instructions [61876] - Gastro Colonoscopy Prep Instructions (Kazakh Version) [51662] Go to the Pt. Instructions section within the Visit Navigator to access. Colonoscopy ASGE Guidelines: Altered bowel habit, chronic diarrhea ADDITIONAL INFORMATION 1. Is the patient on Coumadin? No 2. Is the patient on Pradaxa? No Reason for Visit * Reason Comments Re-Check Encounter Details Date Type Department Care Team ([facility] Contact Info) Description 08/01/2024 8:40 AM EST Office Visit [address] [place] [phone] Lisette Phelan MD [address] [place] [address] [place] [phone] Bowel habit changes*; HTN, goal below 140/90; Hyperlipidemia with target LDL less than 100; Mild persistent asthma without complication Allergies Active Allergy Reactions Criticality Noted Date [...] mouth in the morning. Active Probiotic Product (JethroData) CAPS Capsule Take 1 Cap by mouth [...] days 1 Each 1 01/30/20 24 Active Dicyclomine HCl 10 MG Oral Capsule (Bentyl) TAKE ONE CAPSULE BY MOUTH THREE TIMES A DAY NEEDED FOR CRAMPING, DIARRHEA, OR ABDOMINAL PAIN 300 Capsule 3 4 8:17 AM EDT 02/05/20 24 025 Active Benazepril HCl 40 MG [...] daily in the morning. 100 Tablet 2 4 6:17 PM EDT 04/30/20 24 Active Pantoprazole Sodium 40 MG Oral Tablet Delayed Release (Protonix) Take 1 Tablet by mouth in the morning. 90 Tablet 2 07/14/20 24 Active Fenofibrate 145 MG Oral Tablet (Tricor) Take 1 Tablet by mouth in the morning. 90 Tablet 2 07/14/20 24 Active Sertraline HCl 100 MG Oral Tablet (Zoloft) TAKE ONE AND ONE-HALF TABLETS BY MOUTH IN THE MORNING 135 Tablet 1 4 9:46 AM EST 07/17/20 24 025 Active Albuterol Sulfate HFA 108 (90 Base) MCG/ACT Inhalation Aerosol SolutionIndicatio ns:Mild persistent asthma without complication Inhale 2 Puffs by mouth every 4 hours as needed for Shortness of Breath. 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 on file Not on file documented as of this encounter Last Filed Vital Signs Vital Sign Reading Time Taken Comments Blood Pressure 138/70 08/01/2024 8:44 AM EST Pulse 86 08/01/2024 8:44 AM EST Temperature 36.3 °C (97.4 °F) 08/01/2024 8:44 AM ES T Respiratory Rate - - Oxygen Saturation 95% 08/01/2024 8:44 AM EST Inhaled Oxygen Concentration - - Weight 74.8 kg (164 lb 14.4 oz) 08/01/2024 8:44 AM EST Height 158.8 cm (5' 2.5") 08/01/2024 8:44 AM EST Body Mass Index 29.68 08/01/2024 8:44 AM EST documented in this encounter Progress Notes * Lisette Phelan MD - 08/01/2024 9:09 AM EST Images from the original note were not included. History of Present Illness Verónica Hoffmann is a 79 year old female that presents for Re-Check After thanksgiving, started having some bowel issues. Initially went to breakfast and had a sandwich, went right through her. Improved, but then had a salad and it was loose again. Gets episodic diarrhea at this point. Black in color, liquidy. Like applesauce sometimes. No abdominal pain. Does feeltired. Had a colonoscopy in 11/2018, was told she was to have another in 3-5 years. No hx of GI cancers that she is aware of. Does notice certain foods make the bowels worse- lettuce, tomato sauce. No recent medication changes. Asthma is well controlled with breo. BP good today, doing well on meds. Physical Exam BP 138/70 | Pulse 86 | Temp 97.4 °F (36.3 °C) (Infrared ) | Ht 5' 2.5" (1.588 m) | Wt 164 lb 14.4oz (74.8 kg) | SpO2 95% | BMI 29.68 kg/m² | BSA 1.82 m² Physical Exam Vitals and nursing note reviewed. Constitutional: General: She is not in acute distress. HENT: Head: Normocephalic and atraumatic. Mouth/Throat: Mouth: Mucous membranes are moist. Eyes: Extraocular Movements: Extraocular movements intact. Neck: Thyroid: No thyromegaly. Cardiovascular: Rate and Rhythm: Normal rate and regular rhythm. Pulmonary: Breath sounds: Normal breath sounds. No wheezing or rhonchi. Abdominal: General: Bowel sounds are normal. There is no distension. Palpations: Abdomen is soft. There is no mass. Tenderness: There is no abdominal tenderness. Musculoskeletal: General: Normal range of motion. Cervical back: Normal range of motion and neck supple. Right lower leg: No edema. Left lower leg: No edema. Lymphadenopathy: Cervical: No cervical adenopathy. Upper Body: Right upper body: No supraclavicular adenopathy. Left upper body: No supraclavicular adenopathy. Skin: General: Skin is warm and dry. Neurological: General: No focal deficit present. Mental Status: She is alert and oriented to person, place, and time. Psychiatric: Mood and Affect: Mood normal. Behavior: Behavior normal. Assessment and Plan Bowel habit changes States that she was due for a repeat scope last year. Takes bentyl, may be more an IBS picture but with the bowel changes and the dark color, I would recommend repeat colo at this time as well. Sent referral. Can use anti-diarrheal med as needed in the meantime. Stay hydrated. Check previously ordered labs (CBC and BMP) - COLONOSCOPY, GI REFERRAL OP HTN, goal below 140/90 Controlled, continue benazepril, carvedilol, nifedipine. Check BMP Hyperlipidemia with target LDL less than 100 Continue zetia and tricor. Mild persistent asthma without complication Controlled with Breo, hasn't needed albuterol at all. Wrap-Up Follow Up: Return for with PCP as scheduled. | For: with PCP as scheduled Time: I spent a total of 10-19 minutes (exact time 15 mins) on the date of service in preparation, delivery, and documentation of the care provided to Verónica Hoffmann excluding any time spent in the performance of separately billed services. documented in this encounter Nursing Notes * Liset Bryan CMA - 08/01/2024 8:49 AM EST Pt here today for changes in bowel movement. Pt reports started after thanking giving, was out for breakfast and had diarrhea, same thing a couple of weeks later after having a salad, then after velvet dinner had diarrhea again was very dark in color (black) and constancy of apple sauce. Still has occasional loss dark stool usually in AM then gets more regular as day goes on. documented in this encounter Plan of Treatment Upcoming Encounters Date Type Department Care Team (Late st Contact Info) Description 09/12/2024 9:30 AM EST Office Visit Family [address] [phone] Lisette Diana[address] [place] [address] 03/09/2025 8:30 AM EDT Nurse Only Ancillary [place] [place] [address] [place], Nurse Annual Wellness [address] [place] [address] [place] [address] Scheduled Referrals Name Type Priority Associated Diagnoses Orde r Schedule COLONOSCOPY, GI REFERRAL OP Referral Within 10 days (routine) Bowel habit changes Ordered: 08/01/2024 Health Maintenance Due Date Last Done Comments *SPIROMETRY ONCE FOR ASTHMA-ADULT 12/29/2022 COVID-19 Vaccine ( season) 2024 12/16/2020, 11/17/2020 Zoster Vaccines (2 of 2) 06/24/2024 04/29/2024, 02/2024 GFR 01/10/2025 01/11/2024, 11/29, 05/31/2022, Additional [...] encounter Medical Devices Implanted Type Area Information And Data Architect Analyst Device Identifier Shelf Expiration Date Model / Serial / Lot Lens Intraoc 22.0 - [id number] - [id number] Implanted:Qty: 1 on 06/23/2019 by Darrel Garza MD at OR [facility] Left: Eye BAUSCH & LOMB 01/27/2024 [id number] / [id number] / Lens Intraoc 20.5 - [id number] - [id number] Implanted:Qty: 1 on 07/01/2019 by Darrel Garza MD at OR [facility] Right: Eye BAUSCH & LOMB 01/27/2024 [id number] / [id number] / [id number] documented as of this encounter Visit Diagnoses Diagnosis Bowel habit changes- Primary Other symptoms involving digestive system HTN, goal below 140/90 Unspecified essential hypertension Hyperlipidemia with target LDL less than 100 Other and unspecified hyperlipidemia Mild persistent asthma without complication Unspecified asthma documented in this encounter Care Teams Airplane Navigator Relationship Specialty Start Date End Date Lisette Diana DO [address] [place] [address] [place] [address] PCP - General Internal Medicine 12/26/22 documented as of this encounter
--- OUTSIDE RECORDS SUMMARY | 2024-12-01 04:00 | External Medical Summary ---
Author Name Unknown Address Unknown Organization [id number]:LABORATORY [facility] [place] - [address] [facility] [place] [address] Laboratory Report Ordering Provider Test Date Status FRANK MUNGUIA 08/01/2024 09:24:26 Final Observation Date Value Abnormality Reference (Units ) Status SYNC LEUKOCYTES IN BLOOD BY AUTOMATED COUNT 08/01/2024 09:24:26 8.59 4.00-10.80 (K/uL) Final Segs 08/01/2024 09:24:26 75.9 Above high normal 40.0-75.0 (%) Final Lymphs % 08/01/2024 09:24:26 14.3 Below low normal 18.0-42.0 (%) Final Monos 08/01/2024 09:24:26 7.1 1.0-11.0 (%) Final Eosinophils 08/01/2024 09:24:26 1.7 0.0-6.0 (%) Final Basos 08/01/2024 09:24:26 0.5 0.0-2.0 (%) Final Immature Granulocyte, Percent 08/01/2024 09:24:26 0.5 0.0-2.0 (%) Final Absolute Segs 08/01/2024 09:24:26 6.52 1.80-7.70 (K/uL) Final Lymphs, absolute 08/01/2024 09:24:26 1.23 1.00-4.80 (K/ul) Final Monos, Abs 08/01/2024 09:24:26 0.61 0.00-1.10 (K/uL) Final Eos, Abs 08/01/2024 09:24:26 0.15 0.00-0.70 (K/uL) Final Basos, Abs 08/01/2024 09:24:26 0.04 0.00-0.20 (K/uL) Final Immature Granulocytes, Number 08/01/2024 09:24:26 0.04 0.00-0.20 (K/uL) Final Performing Location LABORATORY [facility] [place] - [address] [facility] [address]
--- OUTSIDE RECORDS SUMMARY | 2024-12-01 04:00 | External Medical Summary ---
Author Name Unknown Address Unknown Organization K01:[facility]ATORY [facility] [place] - [address] [facility] [address] [facility] [address] [place] [address] Laboratory Report Ordering Provider Test Date Status FRANK MUNGUIA 08/01/2024 09:24:26 Final Observation Date Value Abnormality Reference (Units ) Status BUN 08/01/2024 09:24:26 14 6-20 (mg/dL) Final Creatinine 08/01/2024 09:24:26 0.9 0.5-1.0 (mg/dL) Final Glomerular filtration rate/1.73 sq M.predicted [Volume Rate/Area] in Serum, Plasma or Blood by Creatinine-based formula (CKD-EPI) 08/01/2024 09:24:26 67 >=60 (mL/min) Final eGFR is calculated based on the CKD-EPI 2020 equation. Sodium 08/01/2024 09:24:26 139 135-146 (m mol/L) Final Potassium 08/01/2024 09:24:26 4.2 3.5-5.1 (m mol/L) Final Cl 08/01/2024 09:24:26 101 98-107 (mm ol/L) Final CO2 08/01/2024 09:24:26 24 22-32 (mmo l/L) Final Anion gap 08/01/2024 09:24:26 14 7-15 (mmol /L) Final Glucose 08/01/2024 09:24:26 97 70-120 (mg /dL) Final Calcium 08/01/2024 09:24:26 10.5 Above high normal 8. 4-10.2 (mg/dL) Final Performing Location LAB[facility]ATORY [facility] [place] - [address] [place] [address]
--- OUTSIDE RECORDS SUMMARY | 2024-12-01 04:00 | External Medical Summary | Summary of Care ---
Author Name Unknown Organization [facility] Address [address] [facility] [place] [address] Phone [phone] Care Team Providers Care Sourcing Internship Name Role Phone Lisette Diana DO Primary Care Provider [phone] Reason for Visit * Reason Onset Date Comments Appointment 08/01/2024 colonoscopy Encounter Details Date Type Department Care Team (Late st Contact Info) Description 08/01/2024 Telephone Family Medicine [address] [place] [phone] Lisette Phelan MD [address] [place] [address] [place] [phone] Appointment (colonoscopy) Allergies Active [...] mouth in the morning. 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 [...] 9:30 AM EST Office Visit Family Medicine [address] [place] [phone] Lisette Diana, [address] [place] [address] 03/09/2025 8:30 AM EDT Nurse Only Ancillary [address] [place] [address] [place], Nurse [address] [place] [address] Health Maintenance Due Date Last Done Comments *SPIROMETRY ONCE FOR ASTHMA-ADULT 12/29/2022 COVID-19 Vaccine ( - season) 2024 12/16/2020, 11/17/2020 Zoster Vaccines (2 of 2) 06/24/2024 04/29/2024, 0702/2024 GFR 01/10/2025 01/11/2024, 11/29, 05/31/2022, Additional history [...] this encounter Medical Devices Implanted Type Area Water Treatment Plant Repairer Device Identifier Shelf Expiration Date Model / Serial / Lot Lens Intraoc 22.0 - [id number] - [id number] Implanted:Qty: 1 on 06/23/2019 by Darrel Garza MD at OR [facility] Left: Eye BAUSCH & LOMB 01/27/2024 [id number] / [id number] / Lens Intraoc 20.5 - [id number] - [id number] Implanted:Qty: 1 on 07/01/2019 by Darrel Garza MD at OR [facility] Right: Eye BAUSCH & LOMB 01/27/2024 [id number] / [id number] / [id number] documented as of this encounter Care Teams Sourcing Internship Relationship Specialty Start Date End Date Lisette Diana DO [address] [place] [address] [place] [address] PCP - General Internal Medicine 12/26/22 documented as of this encounter
--- OUTSIDE RECORDS SUMMARY | 2024-12-01 04:00 | External Medical Summary ---
Author Name Unknown Address Unknown Organization K01:[facility] [address] [place] [address] Laboratory Report Ordering Provider Test Date Status FRANK MUNGUIA 08/01/2024 09:24:26 Final Observation Date Value Abnormality Reference (Units ) Status WBC, Total 08/01/2024 09:24:26 8.59 4.00-10.8 0 (K/uL) Final RBC 08/01/2024 09:24:26 4.39 3.85-5.15 (M/uL) Final Hemoglobin 08/01/2024 09:24:26 13.0 12.0-15.3 (g/dL) Final Anemia reflex testing trigge rs on a HGB < 12.0 for Females and HGB < 13.0 for Males in accordance with the WHO Anemia Guidelines
Anemia reflex testing triggers on a HGB < 12.0 for Females and HGB < 13.0 for Males in accordance with the WHO Anemia Guidelines HCT 08/01/2024 09:24:26 40.7 36.0-45.2 (%) Final MCV 08/01/2024 09:24:26 92.7 81.5-97.5 (fL) Final MCH 08/01/2024 09:24:26 29.6 27.0-34.0 (pg) Final MCHC 08/01/2024 09:24:26 31.9 32.0-36.0 (g/dL) Final RDW 08/01/2024 09:24:26 13.0 11.5-15.5 (%) Final Platelets 08/01/2024 09:24:26 363 140-400 (K /uL) Final MPV 08/01/2024 09:24:26 9.6 6.6-11.1 ( fL) Final Nucleated erythrocytes/100 leukocytes [Ratio] in Blood by Automated count 08/01/2024 09:24:26 0 <=0 (/100 WBCs) Formerly [facility], 1928–1983 Performing Location [facility] - [address] [facility] [address]
--- OUTSIDE RECORDS SUMMARY | 2024-12-01 04:00 | External Medical Summary ---
Author Name Unknown Address Unknown Organization K01:[facility] [place] [address] [facility] [place] [address] Laboratory Report Ordering Provider Test Date Status ODESSA CROOK 08/01/2024 09:24:26 Final Observation Date Value Abnormality Reference (Units ) Status MYCODE SPECIMEN-SST 08/01/2024 09:24:26 Freezing of extracted DNA, whole blood and/or serum. Final Performing Location [facility] [place] [address] [place] [address]
--- OUTSIDE RECORDS SUMMARY | 2024-12-01 04:00 | External Medical Summary | Summary of Care ---
Author Name Unknown Organization [facility] Address [address] [facility] [place] [address] Phone [phone] Care Team Providers Care Utility Sales And Service Manager Name Role Phone DianaLisette black Primary Care Provider [phone] Reason for Visit * Reason Comments Outpatient Testing Encounter Details Date Type Department Care Team (Late st Contact Info) Description 08/01/2024 9:30 AM EST Laboratory Laboratory [address] [place] [phone] [place] [address] [employer] Other*[id number]; Decreased renal function; Anemia, unspecified type Allergies [...] mouth in the morning. 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 Not on file documented as of this encounter Plan of Treatment Upcoming Encounters Date Type Department Care Team (Late st Contact Info) Description 09/12/2024 9:30 AM EST Office Visit Family Medicine [address] [place] [phone] Lisette Diaan, [address] [place] [address] 03/09/2025 8:30 AM EDT Nurse Only Ancillary [address] [place] [address] [place], Nurse Annual Wellness [address] [place] [address] [place] [address] Pending Results Name Type Priority Associated Diagnoses Date /Time MYCODE INITIAL ADULT Lab Routine MyCode Research Other*[id number] 08/01/2024 9:24 AM EST BASIC METABOLIC PANEL Lab Routine Decreased renal function 08/01/2024 9:24 AM EST CBC WITH WBC DIFFERENTIAL AND ANEMIA REFLEX WORKUP Lab Routine Anemia, unspecified type 08/01/2024 9:24 AM EST MYCODE INITIAL ADULT-PINK Lab Routine [employer] Other*[id number] 08/01/2024 9:24 AM EST MYCODE SST1 Lab Routine [employer] Other*[id number] 08/01/2024 9:24 AM EST MYCODE SST2 Lab Routine [employer] Other*[id number] 08/01/2024 9:24 AM EST ANEMIA CBC Lab Routine Anemia, unspecified type 08/01/2024 9:24 AM EST DIFFERENTIAL, AUTOMATED Lab Routine Anemia, unspecified type 08/01/2024 9:24 AM EST ANEMIA REFLEX CHEMISTRY HOLD Lab Routine Anemia, unspecified type 08/01/2024 9:24 AM EST Health Maintenance Due Date Last Done Comments *SPIROMETRY ONCE FOR ASTHMA-ADULT 12/29/2022 COVID-19 Vaccine ( season) 2024 12/16/2020, 11/17/2020 Zoster Vaccines (2 of 2) 06/24/2024 04/29/2024, 07/0 02/2024 GFR 01/10/2025 01/11/2024, 05/3 , 05/31/2022, Additional history exists Adult Wellness Visit [...] this encounter Medical Devices Implanted Type Area Big Machine Consultant Device Identifier Shelf Expiration Date Model / Serial / Lot Lens Intraoc 22.0 - [id number] - [id number] Implanted:Qty: 1 on 06/23/2019 by Darrel Garza MD at OR [facility] Left: Eye BAUSCH & LOMB 01/27/2024 [id number] / [id number] / Lens Intraoc 20.5 - [id number] - [id number] Implanted:Qty: 1 on 07/01/2019 by Darrel Garza MD at OR [facility] Right: Eye BAUSCH & LOMB 01/27/2024 [id number] / [id number] / [id number] documented as of this encounter Visit Diagnoses Diagnosis MyCode Research Other*[id number] Decreased renal function Unspecified disorder of kidney and ureter Anemia, unspecified type documented in this encounter Care Teams Utility Sales And Service Manager Relationship Specialty Start Date End Date Lisette Diana DO [address] [place] [address] [place] [address] PCP - General Internal Medicine 12/26/22 documented as of this encounter
--- OUTSIDE RECORDS SUMMARY | 2024-12-01 04:00 | External Medical Summary | Summary of Care ---
Author Name Unknown Organization [facility] Address [address] [facility] [place] [address] Phone [phone] Care Team Providers Care Cath Lab Technologist Name Role Phone Ezra Marie DO Primary Care Provider Reason for Visit * Reason Onset Date Comments Medication Refill Status Check 07/17/2024 Encounter Details Date Type Department Care Team (Late st Contact Info) Description 07/17/2024 Refill Family Medicine [address] [place] [phone] Ezra Marie DO [address] [place] [address] [place] [address] Allergies Active Allergy Reactions Criticality Noted Date Comments Amoxicillin Nausea/vomiting Low 10/07/2013 Statins 01/30/2024 Joint/muscle pain documented as of this encounter (statuses as of 07/17/2024) Medications ASPIRIN 81 MG PO CHEW None [...] mouth in the morning. Active Probiotic Product (AlterGeo) CAPS Capsule Take 1 Cap by mouth [...] the morning. 90 Tablet 2 4 Active Albuterol Sulfate HFA 108 (90 Base) MCG/ACT Inhalation Aerosol SolutionIndicatio ns:Mild persistent asthma without complication Inhale 2 Puffs by mouth every 4 hours as needed for Shortness of Breath. 6.7 g 11 4 Active Sertraline HCl 100 MG Oral Tablet (Zoloft) TAKE ONE AND ONE-HALF TABLETS BY MOUTH IN THE MORNING 135 Tablet 1 4 025 Active Sertraline HCl 100 MG Oral Tablet (Zoloft) TAKE ONE AND ONE-HALF TABLETS BY MOUTH IN THE MORNING 135 Tablet 1 04/21/2024 12:30 PM EDT 4 024 Discontin ued(Refil l) documented as of this encounter (statuses as of 07/17/2024) Active Problems Problem Noted Date Diagnosed Date Gastroesophageal reflux disease without esophagi tis 01/30/2024 Hyperlipidemia with target LDL less than 100 12/2022 History of breast cancer 12/26/2022 Mild persistent asthma without complication 11/29 Osteopenia of both hips 12/26/2022 Anxiety and depression 12/26/2022 HTN, goal below 140/90 12/26/2022 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 2022 documented as of this encounter (statuses as of 07/17/2024) Resolved Problems Problem Noted Date Diagnosed Date Resolved Date Microalbuminuria 07/04/2023 01/30/2024 Malignant neoplasm of upper- outer quadrant of female breast 10/07/2013 12/26/2022 documented as of this encounter (statuses as of 07/17/2024) Immunizations Name Administration Dates Next Due COVID-19 [...] Not on file 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 Not on file Not on file documented as of this encounter Miscellaneous Notes * Telephone Encounter - Petrona Anders RPh - 07/17/2024 3:51 PM ESTSigned Prescriptions: Disp Refills Sertraline HCl 100 MG Oral Tablet (Zoloft) 135 Ta*1 Sig: TAKE ONE AND ONE-HALF TABLETS BY MOUTH IN THE MORNING Authorizing Provider: EZRA MARIE Ordering User: PETRONA ANDERS * Telephone Encounter - Amalia Agarwal [facility] - 07/17/2024 3:00 PM EST Order note 03/04/24 patient takes 1 tablet in the am and 1/2 tablet at night Did you pend patient's preferred pharmacy and medication before forwarding?yes Pharmacy: [facility] Pending Prescriptions: Disp Refills Sertraline HCl 100 MG Oral Tablet (Zoloft)135 Ta*1 Sig: TAKE ONE AND ONE-HALF TABLETS BY MOUTH IN THE MORNING Last Visit: 01/30/2024 (in office), Visit date not found (telemedicine) Next Visit: 09/12/2024 If no future appointments scheduled, and last appointment is greater than a year ago, please schedule patient for a follow-up appointment Last date the medication was ordered: 11/01/23 Is this request for a controlled substance?No Urine Drug Screen: Results for orders placed or performed in visit on 12/26/22 PAIN MANAGEMENT DRUG PANEL, URINE W/ INTERPRETATION Result Value Compliance Interpretation Based on the medication information provided: The presence of temazepam and oxazepam is CONSISTENT with temazepam use. Amphetamines Screen, U Negative Benzodiazepines Screen, U Refer to confirmation results (A) Cannabinoids Screen, U Negative Cocaine Metabolite Screen, U Negative Fentanyl Screen, U Negative Hydrocodone Screen, U Negative Methadone Metabolite Screen, U Negative Morphine/Codeine Screen, U Negative Oxycodone Screen, U Negative Valid Interpretation Normal Creatinine, U 93 Narrative Cutoff Concentrations: Drug Level Amphetamines 500 ng/mL Benzodiazepines 100 ng/mL Cannabinoids 50 ng/mL Cocaine Metabolite 150 ng/mL Fentanyl 1 ng/mL Hydrocodone / Hydromorphone 300 ng/mL Methadone Metabolite 100 ng/mL Morphine / Codeine 300 ng/mL Oxycodone / Oxymorphone 100 ng/mL Screening results are presumptive and can only be used for medical purposes. Confirmatory testing is available upon request. Patient Phone Numbers Labs: Lab Results Component Value Date/Time CREAT 1.0 01/11/2024 09:54 AM CREAT 1.0 05/31/2022 12:00 AM CREAT 0.9 10/29/2013 08:20 AM POTASSIUM 4.4 01/11/2024 09:54 AM POTASSIUM 4.8 05/31/2022 12:00 AM POTASSIUM 5.0 10/29/2013 08:20 AM TSH 2.189 05/31/2022 12:00 AM LDL 127 01/11/2024 09:54 AM LDL 108 10/29/2013 08:20 AM LDL 98 10/29/2013 08:20 AM ALT 32 01/11/2024 09:54 AM ALT 20 10/29/2013 08:20 AM documented in this encounter Plan of Treatment Upcoming Encounters Date Type Department Care Team (Late st Contact Info) Description 09/12/2024 9:30 AM EST Office Visit Family Medicine [address] [place] [phone] Ezra Marie [address] [place] [address] 03/09/2025 8:30 AM EDT Nurse Only Ancillary [address] [place] [address] [place], Nurse [address] [place] [address] Health Maintenance Due Date Last Done Comments *SPIROMETRY ONCE FOR ASTHMA-ADULT 12/29/2022 COVID-19 Vaccine (3 - season) 2024 12/16/2020, 11/17/2020 Influenza Vaccine (FLU [...] this encounter Medical Devices Implanted Type Area Waxer Floor Device Identifier Shelf Expiration Date Model / Serial / Lot Lens Intraoc 22.0 - [id number] - [id number] Implanted:Qty: 1 on 06/23/2019 by Darrel Garza MD at OR [facility] Left: Eye BAUSCH & LOMB 01/27/2024 [id number] / [id number] / Lens Intraoc 20.5 - [id number] - [id number] Implanted:Qty: 1 on 07/01/2019 by Darrel Garza MD at [facility] Right: Eye BAUSCH & LOMB 01/27/2024 [id number] / [id number] / [id number] documented as of this encounter Care Teams Cath Lab Technologist Relationship Specialty Start Date End Date Ezra Marie DO [address] [place] [address] [place] [address] PCP - General Internal Medicine 12/26/22 documented as of this encounter
--- OUTSIDE RECORDS SUMMARY | 2024-12-01 04:01 | External Medical Summary | Summary of Care ---
Author Name Unknown Organization [facility] Address [address] [place] [address] Phone [phone] Care Team Providers Care Butter Grader Name Role Phone Lisette Diana Primary Care Provider [phone] Encounter Details Date Type Department Care Team (Latest Contact Info) Description 07/15/2024 Medication Management [facility] [address] [place] [address] Rita Fofana, [facility] [address] [place] [address] Referred for management of medication therapy* Allergies Active Allergy Reactions Criticality Noted Date [...] mouth in the morning. Active Probiotic Product (Canary Calendar) CAPS Capsule Take 1 Cap by mouth [...] the morning. 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 Objective: Review of patient's allergies indicates: Allergen Reactions Statins Joint/muscle pain Amoxicillin Nausea/vomiting Current Outpatient Medications - WARNING: List may be incomplete due to filtering Medication Sig Dispense Refill Fenofibrate 145 MG Oral Tablet (Tricor) Take 1 Tablet by mouth in the morning. 90 Tablet 2 Pantoprazole Sodium 40 MG Oral Tablet Delayed Release (Protonix) Take 1 Tablet by mouth in the morning. 90 Tablet 2 Ezetimibe 10 MG Oral Tablet (Zetia) Take 1 Tablet by mouth daily in the morning. 100 Tablet 2 NIFEdipine ER 60 MG Oral Tablet Extended Release 24 Hour (Adalat CC) Take 1 Tablet by mouth in the morning. 100 Tablet 1 Breo Ellipta 100-25 MCG/ACT Inhalation Aerosol Powder Breath Activated INHALE ONE PUFF BY MOUTH EVERY DAY 180 Each 3 Benazepril HCl 40 MG Oral Tablet TAKE ONE TABLET BY MOUTH IN THE MORNING 100 Tablet 2 Dicyclomine HCl 10 MG Oral Capsule (Bentyl) TAKE ONE CAPSULE BY MOUTH THREE TIMES A DAY NEEDED FOR CRAMPING, DIARRHEA, OR ABDOMINAL PAIN 300 Capsule 3 Zoster Vac Recomb Adjuvanted 50 MCG/0.5ML Intramuscular Suspension Reconstituted (Shingrix) Inject 0.5 mL into a large muscle now and repeat dose in 60 to 180 days 1 Each 1 Sertraline HCl 100 MG Oral Tablet (Zoloft) TAKE ONE AND ONE-HALF TABLETS BY MOUTH IN THE MORNING 135 Tablet 1 Carvedilol 6.25 MG Oral Tablet (Coreg) TAKE ONE TABLET BY MOUTH TWICE A DAY 180 Tablet 3 CoQ-10 100 MG Oral Capsule Take by mouth. Elderberry 500 MG Oral Capsule Take by mouth. Vitamin D 50 MCG (2000 UT) Oral Capsule Take 2,000 Units by mouth in the morning. Zinc 100 MG Oral Tablet Take by mouth. Probiotic Product (Canary Calendar) CAPS Capsule Take 1 Cap by mouth daily. ASPIRIN 81 MG PO CHEW None Entered CALTRATE 600+D 600-400 MG-UNIT PO CHEW Take 1 Tablet by mouth in the morning and 1 Tablet before bedtime. CENTRUM SILVER ULTRA WOMENS PO TABS Take 1 Tablet by mouth in the morning. ANDREW-C 1000-50 MG PO TABS Take by mouth daily. OSTEO BI-FLEX ADV DOUBLE ST PO TABS 1 tablet daily VITAMIN B-12 1000 MCG PO TABS 1 tablet daily Immunization History Administered Date(s) Administered COVID-19 mRNA, LNP-s, No Preserve, 2-Dose Series (Moderna) 11/17/2020, 12/16/2020 Pneumococcal Conjugate Vacc, 13 Valent (Prevnar) 06/17/2018 Pneumococcal Polysaccharide PPV23 (Pneumovax) 06/28/2010, 06/02/2016 Seasonal Influenza, Quadrivalent Hd (Fluzone Hd) 07/04/2023 Seasonal Influenza, Quadrivalent Hd, 65+ Yrs 06/08/2022 TDAP, Age 7 and older, IM (Adacel) 12/26/2022 Zoster Vaccine Recombinant (Shingrix) 02/04/2024 TMR Interventions Incomplete Encounter MTPs Diagnosis Not Specified 1 Rationale: Untreated condition - Needs additional medication therapy - Indication Recommendation: Start Medication - Ventolin HFA 108 (90 Base) MCG/ACT Aers Status: Contact Provider - Awaiting Response Identified Date: 07/15/2024 Complete Encounter MTPs No medication therapy recommendations to display Assessment & Plan Indication, effectiveness, safety and convenience of her medications were reviewed today. The patient's medical conditions were assessed, evaluated, and deemed meeting goals of drug therapy, with thefollowing exceptions. Additional Notes: Patient confirms accuracy of her medication list. Denies any issues or concerns. Summary Time Spent: 16-30 min Supervising pharmacist who provided the service: Rita Fofana RPh Takeaway Information Who was the recipient of the CMR service: beneficiary Language Template for the Patient Takeaway: [place] I attest that I have reviewed and updated the patient's conditions, allergies, and medications to the best of my ability. Rita Fofana RPh 07/15/2024, 8:05 PM documented in this encounter Miscellaneous Notes * MTM Personal Medication List - Rita Fofana RPh - 07/15/2024 8:00 PM EST Medication How I take it Why I use it Prescriber ASPIRIN 81 MG PO CHEW Take 1 tablet by mouth daily Prevents heart attacks Self Benazepril HCl 40 MG Oral Tablet TAKE ONE TABLET BY MOUTH IN THE MORNING Blood pressure Lisette Diana DO Breo Ellipta 100-25 MCG/ACT Inhalation Aerosol Powder Breath Activated INHALE ONE PUFF BY MOUTH EVERY DAY Asthma Lisette Diana DO CALTRATE 600+D 600-400 MG-UNIT PO CHEW Take 1 Tablet by mouth in the morning and 1 Tablet before bedtime. Supplement Self Carvedilol 6.25 MG Oral Tablet (Coreg) TAKE ONE TABLET BY MOUTH TWICE A DAY Blood pressure Lisette Diana DO CENTRUM SILVER ULTRA WOMENS PO TABS Take 1 Tablet by mouth in the morning. Supplement Self CoQ-10 100 MG Oral Capsule Take 1 tablet by mouth daily. Supplement Self Dicyclomine HCl 10 MG Oral Capsule (Bentyl) TAKE ONE CAPSULE BY MOUTH THREE TIMES A DAY NEEDED FOR CRAMPING, DIARRHEA, OR ABDOMINAL PAIN Stomach pain Lisette Diana DO Elderberry 500 MG Oral Capsule Take 1 tablet by mouth daily Supplement Self ANDREW-C 1000-50 MG PO TABS Take 1 tablet by mouth daily Supplement Self Ezetimibe 10 MG Oral Tablet (Zetia) Take 1 Tablet by mouth daily in the morning. Cholesterol Elie Diana DO Fenofibrate 145 MG Oral Tablet (Tricor) Take 1 Tablet by mouth in the morning. Cholesterol (triglycerides) Lisette Diana DO NIFEdipine ER 60 MG Oral Tablet Extended Release 24 Hour (Adalat CC) Take 1 Tablet by mouth in the morning. Blood pressure Lisette Diana DO OSTEO BI-FLEX ADV DOUBLE ST PO TABS Take 1 tablet by mouth daily Supplement Self Pantoprazole Sodium 40 MG Oral Tablet Delayed Release (Protonix) Take 1 Tablet by mouth in the morning. Heartburn Lisette Diana DO Probiotic Product (Canary Calendar) CAPS Capsule Take 1 Capsule by mouth daily. Supplement History Per Patient Sertraline HCl 100 MG Oral Tablet (Zoloft) TAKE ONE AND ONE-HALF TABLETS BY MOUTH IN THE MORNING Mood Lisette Diana DO VITAMIN B-12 1000 MCG PO TABS Take 1 tablet daily Supplement Self Vitamin D 50 MCG (2000 UT) Oral Capsule Take 1 tablet by mouth in the morning. Supplement Self Zinc 100 MG Oral Tablet Take 1 tablet by mouth daily Supplement Self * MTM To-Do-List - Rita Fofana RPh - 07/15/2024 7:59 PM EST Images from the original note were not included. What we talked about: What I should do: The importance of taking your medication as prescribed Your medicine works best when taken as prescribed. It can be hard to remember to take daily medications. Consider making it a part of your daily routine. Pair taking your medication with something you do every day, like brushing your teeth or eating a meal. Consider setting daily alarms to help remind yourself when it is time to take your medicine. Using a pill box can also help you organize your medicines. Pill boxes allow you to fill each day slot with your daily medicine and help you track when your next dose is due. What we talked about: What I should do: A new medication that may be of benefit to you Start taking Ventolin HFA to be used as a rescue inhaler in periods of time of shortness of breath. What we talked about: What I should do: Breo It is important to rinse your mouth after use of your inhaler to avoid thrush. What we talked about: What I should do: Pantoprazole Medications like pantoprazole work to treat reflux/heartburn by lowering the amount ofacid that is made in your stomach. Because most of our vitamins and minerals require the stomach nisa acidic in order to absorb, using these medications can actually put us at risk of certain anemias and low bone density (osteoporosis). If there is no specific medical reason that requires you to be on it aerial crop duster, we often suggest slowly working your way off of the medication. If symptoms wouldreturn, there are alternative medications like Pepcid (famotidine) that are safer to use snf instead. What we talked about: What I should do: Calcium supplement Medications like pantoprazole make it hard for calcium to be absorbed by your body. If you remain on this medication aerial crop duster, it will be important for you to take calcium CITRATE, a specific type of calcium supplement that has the ability to absorb better in a low acid environment. documented in this encounter Plan of Treatment Upcoming Encounters Date Type Department Care Team (Late st Contact Info) Description 09/12/2024 9:30 AM EST Office Visit [address] [place] [phone] Diana, Lisette Osorio[address] [place] [address] 03/09/2025 8:30 AM EDT Nurse Only Ancillary [address] [place] [address] [place], Nurse Annual [address] [place] [address] Health Maintenance Due Date Last Done Comments [...] this encounter Medical Devices Implanted Type Area Editorial Assistant Device Identifier Shelf Expiration Date Model / Serial / Lot Lens Intraoc 22.0 - [id number] - [id number] Implanted:Qty: 1 on 06/23/2019 by Darrel Garza MD at [facility] Left: Eye [employer]CH [employer] LOMB 01/27/2024 [id number] / [id number] / Lens Intraoc 20.5 - [id number] - [id number] Implanted:Qty: 1 on 07/01/2019 by Darrel Garza MD at [facility] Right: Eye BAUSCH [employer] LOMB 01/27/2024 [id number] / [id number] / [id number] documented as of this encounter Visit Diagnoses Diagnosis Referred for management of medication therapy- Primary Encounter for long-term (current) use of other medications documented in this encounter Care Teams Butter Grader Relationship Specialty Start Date End Date Lisette Diana DO [address] [place] [address] [place] [address] PCP - General Internal Medicine 12/26/22 documented as of this encounter
--- OUTSIDE RECORDS SUMMARY | 2024-12-01 04:01 | External Medical Summary | Summary of Care ---
Author Name Unknown Organization [facility] Address [address] [facility] [place] [address] Phone [phone] Care Team Providers Care Abe Teacher Name Role Phone Ezra Marie DO Primary Care Provider [phone] Reason for Visit * Reason Comments Medication Refill Encounter Details Date Type Department Care Team (Late st Contact Info) Description 07/12/2024 Refill Family Medicine [address] [place] [phone] Ezra Marie DO [address] [place] [address] [place] [address] Allergies Active Allergy Reactions Criticality Noted Date Comments Amoxicillin Nausea/vomiting Low 10/07/2013 Statins 01/30/2024 Joint/muscle pain documented as of this encounter (statuses as of 07/14/2024) Medications ASPIRIN 81 MG PO CHEW None [...] mouth in the morning. Active Probiotic Product (Advanced [employer]) CAPS Capsule Take 1 Cap by mouth [...] 07/01/2024 1:15 PM EST 4 025 Active Sertraline HCl 100 MG Oral Tablet (Zoloft) TAKE ONE AND ONE-HALF TABLETS BY MOUTH IN THE MORNING 135 Tablet 1 04/21/2024 12:30 PM EDT 4 025 Active Zoster Vac Recomb Adjuvanted [...] by mouth in the morning. 90 Tablet 3 04/21/2024 12:30 PM EDT 3 024 Discontin ued(Refil l) Pantoprazole Sodium 40 MG Oral Tablet Delayed Release (Protonix) Take 1 Tablet by mouth in the morning. 90 Tablet 1 04/21/2024 12:30 PM EDT 4 024 Discontin ued(Refil l) documented as of this encounter (statuses as of 07/14/2024) Active Problems Problem Noted Date Diagnosed Date Gastroesophageal reflux disease without esophagi tis 01/30/2024 Hyperlipidemia with target LDL less than 100 12/2022 History of breast cancer 12/26/2022 Mild persistent asthma without complication 11/29 Osteopenia of both hips 12/26/2022 Anxiety and depression 12/26/2022 HTN, goal below 140/90 12/26/2022 shelter current use of therapeutic drug 2022 documented as of this encounter (statuses as of 07/14/2024) Resolved Problems Problem Noted Date Diagnosed Date Resolved Date Microalbuminuria 07/04/2023 01/30/2024 Malignant neoplasm of upper- outer quadrant of female breast 10/07/2013 12/26/2022 documented as of this encounter (statuses as of 07/14/2024) Immunizations Name Administration Dates Next Due COVID-19 [...] Not on 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 Authorizing Provider: EZRA MARIE Ordering User: STACY MARCANO Fenofibrate 145 MG Oral Tablet (Tricor) 90 Tab*2 Sig: Take 1 Tablet by mouth in the morning. Authorizing Provider: EZRA MARIE Ordering User: STACY MARCANO * Telephone Encounter - Transfer User, Marielena Segundo - 07/12/2024 12:10 AM ESTPending Prescriptions: Disp Refills Pantoprazole Sodium 40 MG Oral Tablet Abby*90 Tab*1 Sig: Take 1 Tablet by mouth in the morning. Fenofibrate 145 MG Oral Tablet (Tricor) 90 Tab*3 Sig: Take 1 Tablet by mouth in the morning. documented in this encounter Plan of Treatment Upcoming Encounters Date Type Department Care Team (Late st Contact Info) Description 09/12/2024 9:30 AM EST Office Visit [address] [phone] [place] Ezra Osorio[address] [place] [address] 03/09/2025 8:30 AM EDT Nurse Only Ancillary [place] [place] [address] [place], Nurse Annual Wellness [address] [place] [address] [place] [address] Health Maintenance Due Date Last Done Comments [...] this encounter Medical Devices Implanted Type Area Assignment Desk Assistant Device Identifier Shelf Expiration Date Model / Serial / Lot Lens Intraoc 22.0 - [id number] - [id number] Implanted:Qty: 1 on 06/23/2019 by Darrel Garza MD at [facility] Left: Eye BAUSCH [employer] LOMB 01/27/2024 [id number] / [id number] / Lens Intraoc 20.5 - [id number] - [id number] Implanted:Qty: 1 on 07/01/2019 by Darrel Garza MD at [facility] Right: Eye BAUSCH [employer] LOMB 01/27/2024 [id number] / [id number] / [id number] documented as of this encounter Care Teams Abe Teacher Relationship Specialty Start Date End Date Ezra Marie DO [address] [place] [address] [place] [address] PCP - General Internal Medicine 12/26/22 documented as of this encounter
--- OUTSIDE RECORDS SUMMARY | 2024-12-01 04:01 | External Medical Summary | Summary of Care ---
Author Name Unknown Organization [facility] Address [address] [facility] [place] [address] Phone [phone] Care Team Providers Care Statistical Machine Servicer Name Role Phone Lisette Diana Primary Care Provider Encounter Details Date Type Department Care Team (Late st Contact Info) Description 06/05/2024 Population Health External Data Unspecified Department Allergies Active Allergy Reactions Criticality Noted Date Comments Amoxicillin Nausea/vomiting Low 10/07/2013 Statins 01/30/2024 Joint/muscle pain documented as of this encounter (statuses as of 06/06/2024) Medications ASPIRIN 81 MG PO CHEW None [...] mouth in the morning. Active Probiotic Product ([employer]) CAPS Capsule Take 1 Cap by mouth daily. Active Zinc 100 MG Oral Tablet Take by mouth. Active CoQ-10 100 MG Oral Capsule Take by mouth. Active Elderberry 500 MG Oral Capsule Take by mouth. Active Vitamin D 50 MCG (2000 UT) Oral Capsule Take 2,000 Units by mouth in the morning. Active Fenofibrate 145 MG Oral Tablet (Tricor) Take 1 Tablet by mouth in the morning. 90 Tablet 3 04/21/2024 12:30 PM EDT 3 Active Carvedilol 6.25 MG Oral Tablet (Coreg) TAKE ONE TABLET BY MOUTH TWICE A DAY 180 Tablet 3 04/01/2024 1:42 PM EDT 4 10/08/19 25 Active Pantoprazole Sodium 40 MG Oral Tablet Delayed Release (Protonix) Take 1 Tablet by mouth in the morning. 90 Tablet 1 04/21/2024 12:30 PM EDT 4 Active Sertraline HCl 100 MG Oral [...] MOUTH IN THE MORNING 100 Tablet 2 03/04/2024 7:44 AM EDT 4 02/29/20 25 Active Breo Ellipta 100-25 MCG/ACT Inhalation Aerosol Powder Breath ActivatedIndicatio ns:Mild persistent asthma without complication INHALE ONE PUFF BY MOUTH EVERY DAY 180 Each 3 06/04/2024 12:21 PM EST 4 Active NIFEdipine ER 60 MG Oral Tablet Extended Release 24 Hour (Adalat CC) Take 1 Tablet by mouth in the morning. 100 Tablet 1 03/19/2024 11:41 AM EDT 4 Active Ezetimibe 10 MG Oral Tablet (Zetia) Take 1 Tablet by mouth daily in the morning. 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 Never true 03/02/20 23 Within the past 12 months, t he food you bought just didn't last and you didn't have money to get more. 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 Not on file Not on file documented as of this encounter Plan of Treatment Upcoming Encounters Date Type Department Care Team (Late st Contact Info) Description 09/12/2024 9:30 AM EST Office Visit Family Medicine [address] [place] [phone] Lisette Diana, [address] [place] [address] 03/09/2025 8:30 AM EDT Nurse Only Ancillary [address] [place] [address] [place], Nurse Annual Wellness [address] [place] [address] [place] [address] Health Maintenance Due Date Last Done Comments [...] this encounter Medical Devices Implanted Type Area Senior Unix Administrator Device Identifier Shelf Expiration Date Model / Serial / Lot Lens Intraoc 22.0 - [id number] - [id number] Implanted:Qty: 1 on 06/23/2019 by Darrel Garza MD at [facility] Left: Eye BAUSCH [employer] LOMB 01/27/2024 [id number] / [id number] / Lens Intraoc 20.5 - [id number] - [id number] Implanted:Qty: 1 on 07/01/2019 by Darrel Garza MD at OR [facility] Right: Eye BAUSCH & LOMB 01/27/2024 [id number] / [id number] / [id number] documented as of this encounter Care Teams Statistical Machine Servicer Relationship Specialty Start Date End Date Lisette Diana DO [address] [place] [address] [place] [address] PCP - General Internal Medicine 12/26/22 documented as of this encounter
[2024-12-01] MEDS: ENALAPRIL MALEATE 10 MG TAB PO STA (05:11)
--- NOTE | 2024-12-01 08:59 | Electrocardiogram Report ---
Test Reason : Blood Pressure : */* mmHG Vent. Rate : 84 BPM Atrial Rate : 84 BPM P-R Int : 154 ms QRS Dur : 84 ms QT Int : 376 ms P-R-T Axes : 69 -16 47 degrees QTcB Int : 444 ms Normal sinus rhythm Possible Left atrial enlargement Left ventricular hypertrophy ( R in aVL , Pablo product ) Abnormal ECG No previous ECGs available Confirmed by Leonor Chapa (Robert) on 12/01/2024 8:59:34 AM Referred By: REFERRED SELF Confirmed By: Leonor Chapa
[2024-12-01] MEDS ORDERED: carvediloL 6.25 MG TAB PO SCH (09:00)
[2024-12-01] MEDS ORDERED: [UNRECOGNIZED DRUG - OTHER] PO SCH (09:00)
[2024-12-01] MEDS ORDERED: NON-FORMULARY MEDICATION (Glucosamine-Chondroitin [Osteo Bi-Flex] 250-200 mg Tablet) PO SCH (09:00)
[2024-12-01] MEDS ORDERED: ENALAPRIL MALEATE 10 MG TAB PO SCH (09:00)
[2024-12-01] MEDS: FLUTICASONE/VILANTEROL 100/25MCG 14 PUFFS/INHALER INH SCH (09:15)
[2024-12-01] MEDS: ASPIRIN 81 MG ECTAB PO SCH (09:16)
[2024-12-01] MEDS: CALCIUM 600MG + VIT D 400 IU TAB PO SCH (09:16)
[2024-12-01] MEDS: FENOFIBRATE NANOCRYSTALLIZED 145 MG TABLET PO SCH (09:16)
[2024-12-01] MEDS: CEROVITE ADV FORMULA TAB PO SCH (09:16)
[2024-12-01] MEDS: CYANOCOBALAMIN (B-12) 500 MCG TABLET PO SCH (09:16)
[2024-12-01] MEDS: NIFEdipine EXTENDED REL 30 MG TABCR PO SCH (09:16)
[2024-12-01] MEDS: SERTRALINE HCL 50 MG TABLET PO SCH (09:17)
[2024-12-01] MEDS: PANTOprazole 40 MG TAB PO SCH (09:17)
[2024-12-01] MEDS: EZETIMIBE 10 MG TAB PO SCH (09:17)
[2024-12-01] MEDS: ENOXAPARIN INJ 40 MG/0.4 ML SYR SQ SCH (09:18)
--- NOTE | 2024-12-01 14:52 | Hospitalist Progress Note ---
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 Hypertensive crisis BP elevated too 200s/100s Pt with dizziness and headache Trop x 1 normal EKG with NSR Echo pending Head CT unremarkable Brain MRI pending Renal US pending Rule out sleep disordered breathing as contributory factor as well Labetalol in place of Coreg 6.25mg BID given heart rate 60s which limits dose uptitration for latter medication- currently on 100mg BID Continue Nifidepine 60mg daily and home benazapril 40mg daily (enalapril 20mg formulary alternative - increased to BID dosing) Outpatient sleep study Continue to monitor Hypercalcemia Per family pt recently diagnosed with this and has been following with endocrinology AM calcium levels Chronic Medical Problems Nocturnal leg cramps possible RLS 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, TTE 2022) hyperlipidemia, on statin Rx bronchial asthma, stable hypercalcemia, 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 No acute distress neuro: grossly unremarkable HEENT: NC/AT Chest: Nontender to palpation. CV: RRR Resp: Breath sounds clear bilaterally, no increased effort of breathing Abdomen: Soft, nontender Extremities: No edema in lower extremities bilaterally. Results & Data Results & Data Vital Signs (Past 12 Hours) Vital Signs Temp Pulse Pulse Resp BP Pulse Ox Pulse Ox 12/01/24 14:40 36.9 C 97 H 18 170/72 H 97 12/01/24 12:40 12/01/24 12:37 36.8 C 75 18 144/67 H 97 12/01/24 07:51 36.7 C 65 18 165/73 H 98 12/01/24 07:42 59 L 12/01/24 06:31 162/74 H 12/01/24 04:39 79 12/01/24 04:00 72 16 174/71 H 97 12/01/24 03:52 36.9 C 63 14 176/80 H 99 12/01/24 03:52 99 12/01/24 03:30 69 16 155/69 H 95 12/01/24 03:00 65 16 156/65 H 98 O2 Del Method O2 Del Method 12/01/24 14:40 Room Air 12/01/24 12:40 Room Air 12/01/24 12:37 Room Air 12/01/24 07:51 Room Air 12/01/24 07:42 12/01/24 06:31 12/01/24 04:39 12/01/24 04:00 Room Air 12/01/24 03:52 Room Air 12/01/24 03:52 Room Air 12/01/24 03:30 Room Air 12/01/24 03:00 Room Air
[2024-12-01] MEDS: GABAPENTIN 100 MG CAP PO ONE (16:05)
[2024-12-01] MEDS: ENALAPRIL MALEATE 10 MG TAB PO SCH (17:56)
[2024-12-01] MEDS: LABETALOL HCL 100 MG TAB PO SCH (20:06)
[2024-12-01] MEDS ORDERED: GABAPENTIN 100 MG CAP PO SCH (21:00)
[2024-12-01] MEDS: GADOBUTROL 65ML VIAL IV ONE (21:38)
--- NOTE | 2024-12-01 23:38 | Magnetic Resonance Report ---
Exam(s): MRI HEAD W/WO Contrast IV Amt: 7 ml Gadavist EXAM: MR Head Without and With Intravenous Contrast CLINICAL HISTORY: Reason for exam: dizziness, headache. TECHNIQUE: Magnetic resonance images of the head/brain without and with intravenous contrast in multiple planes. CONTRAST: Patient received 7 ml Gadavist of IV contrast COMPARISON: Prior head CT from November 30, 2024. FINDINGS: Brain: Moderate nonspecific white matter changes.. No mass. No hemorrhage. No acute infarct. The flow voids at the base the brain are intact. No evidence of abnormal enhancement. The dural venous sinuses are patent. Ventricles: Moderate ventriculomegaly. Bones/joints: There is a critical spinal canal stenosis at C2 with abnormal CSF signal in the ventral and dorsal subarachnoid spaces, which may represent artifact. No acute fracture. Sinuses: Chronic ethmoid sinusitis. No acute sinusitis. Mastoid air cells: Unremarkable as visualized. No mastoid effusion. Orbits: Bilateral lens replacements. IMPRESSION: No evidence of acute intracranial pathology. Critical spinal canal stenosis at C2 with abnormal CSF signal anterior and posterior to the cord, which may represent artifact are blood. Recommend MRI of the cervical spine to evaluate for myelopathy. Communications: Verify Receipt Electronically signed by: eVnessa Moreno MD 12/01/24 23:37 PM
--- NOTE | 2024-12-01 23:53 | Communication Note ---
Date of Service: December 01, 2024 Notified by RN of abnormal brain MRI result. No evidence of acute intracranial pathology. Critical spinal canal stenosis at C2 with abnormal CSF signal anterior and posterior to the cord, which may represent artifact are blood. Recommend MRI of the cervical spine to evaluate for myelopathy. Patient without neck pain complaints as per RN. Usual tingling leg pain Cervical MRI given abnormal neck findings on brain MRI results. (Will need 12 hours to clear IV dye as per hemodialysis technician.)
[2024-12-02 06:42] LABS: Basophils # (auto) 0.04 K/uL (0.00-0.20); Basophils % (auto) 0.6 %; Eosinophils # (auto) 0.14 K/uL (0.00-0.50); Eosinophils % (auto) 2.1 %; Hematocrit (blood only) 37.7 % (37.0-47.0); Hemoglobin 12.7 g/dl (12.0-16.0); Immature Granulocytes # (auto) 0.02 K/uL (0.01-0.20); Immature Granulocytes % (auto) 0.3 %; Lymphocytes # (auto) 2.01 K/uL (1.20-3.40); Lymphocytes % (auto) 30.5 %; Mean Corpuscular Hemoglobin 30.1 pg (25.0-34.0); Mean Corpuscular Hgb Conc 33.7 g/dL (32.0-36.0); Mean Corpuscular Volume 89.3 fL (80.0-100.0); Mean Platelet Volume 9.2 fL (9.4-12.4); Monocytes % (auto) 10.6 %; Neutrophils # (auto) 3.68 K/uL (1.40-6.50); Neutrophils % (auto) 55.9 %; Platelet Count 300 K/uL (130-400); RDW Coefficient of Variation 13.1 % (11.5-14.5); RDW Standard Deviation 42.9 fL (36.4-46.3); Red Blood Count 4.22 M/uL (4.20-5.40); White Blood Count 6.59 K/ul (4.8-10.8)
[2024-12-02 07:34] LABS: Albumin Level 4.4 gm/dl (3.4-5.0); Bilirubin,Total 0.4 mg/dl (0.2-1.0); Magnesium 2.3 mg/dl (1.7-2.4); Potassium 4.2 mmol/L (3.5-5.1)
[2024-12-02 07:40] LABS: Albumin Globulin Ratio 1.4 (0.9-2); BUN Creatinine Ratio 27.7 (10-20); Creatinine Clr Calc Pharmacy 45.9 ml/min; Globulin 3.1 gm/dl (2.5-4.0); Total Protein 7.5 gm/dl (6.0-8.3)
[2024-12-02] MEDS: GABAPENTIN 100 MG CAP PO SCH (07:49)
--- NOTE | 2024-12-02 08:39 | Ultrasound Report ---
DOPPLER ULTRASOUND OF THE RENAL ARTERIES CLINICAL HISTORY: Hypertensive urgency. COMPARISON STUDY: No previous studies for comparison. TECHNIQUE: Color and duplex Doppler sonography of the proximal abdominal aorta and bilateral renal ar teries was performed. FINDINGS: Peak systolic velocity within the abdominal aorta was 125 cm/s. Peak systolic velocity with in the right renal artery was 129 cm/s and the peak systolic velocity within the left renal artery wa s 198 cm/s. Segmental waveforms within each kidney were normal. Systolic upstrokes were brisk. Renal veins were patent. There is no hydronephrosis. IMPRESSION: No sonographic evidence for renal artery stenosis. ACT 112: Negative or not required by law. Electronically signed by: Valentino Kaur M.D. 12/02/2024 8:38 AM
[2024-12-02] MEDS ORDERED: ENALAPRIL MALEATE 10 MG TAB PO SCH (09:00)
[2024-12-02] MEDS: GADOBUTROL 65ML VIAL IV ONE (12:31)
--- NOTE | 2024-12-02 13:03 | Magnetic Resonance Report ---
MRI OF THE CERVICAL SPINE WITH AND WITHOUT CONTRAST CLINICAL HISTORY: abn brain mri report COMPARISON: MRI of the brain December 01, 2024. TECHNIQUE: Utilizing a 3 Divine magnet and dedicated coil, multiplanar, multiecho imaging of the cerv ical spine was performed before and after intravenous administration of 7 of Gadavist. FINDINGS: There is reversal the cervical lordosis and slight anterolisthesis of C3 on C4. Vertebral body height s are maintained. No marrow edema or marrow replacement is present. Cervical cord signal is suboptima lly assessed given mild motion artifact but no definite cord signal abnormality is present. There is no intracanalicular mass, fluid collection or other abnormality. Abnormality at the C2 level on MRI o f December 01, 2024 is due to degenerative changes with ligamentous hypertrophy and osteophytic spurring po sterior to the cord. Extensive degenerative changes at the C1-C2 articulation are present. There is m oderate central canal stenosis at this level. C2-C3: The central canal is patent. There is mild bilateral neural foraminal stenosis due to facet a rthrosis and uncovertebral hypertrophy. C3-C4: Mild posterior disc osteophyte complex is noted. This slightly effaces the ventral thecal sac . Right neural foramen is patent. There is severe left neural foraminal stenosis due to facet arthros is and uncovertebral hypertrophy. C4-C5: Mild disc space narrowing is noted. Moderate posterior disc osteophyte complex, eccentric to the right indents the right ventral aspect of the cord without cord signal abnormality. There is mild to moderate central canal stenosis. Severe right and moderate to severe left neural foraminal stenos is is due to facet arthrosis and uncovertebral hypertrophy. C5-C6: There is moderate disc space narrowing. Posterior disc osteophyte complex contacts the ventra l aspect of the cord. There is mild to moderate central canal stenosis. Facet arthrosis and uncoverte bral hypertrophy result in severe bilateral neural foraminal stenosis. C6-C7: Moderate disc space narrowing is present. Posterior disc osteophyte complex results in mild c entral canal stenosis. There is moderate to severe bilateral neural foraminal stenosis due to facet a rthrosis and uncovertebral hypertrophy. C7-T1: The central canal and neural foramen are patent. There is facet arthrosis. IMPRESSION: 1. No acute process within the cervical spine by MRI. The abnormality the C2 level on MRI of May 5, 2 025 is due to chronic degenerative changes, as described above. Moderate central canal narrowing at t his level. 2. Moderate to severe multilevel facet arthrosis and degenerative disc disease within the cervical sp ine. Mild to moderate central canal stenosis at several levels in severe neural foraminal stenosis. 3. No cervical spine fractures. No suspicious marrow replacement. 4. No definite cervical cord signal abnormality. Exam mildly compromised by motion artifact. ACT 112: Negative or not required by law. Electronically signed by: Valentino Kaur M.D. 12/02/2024 1:01 PM
--- NOTE | 2024-12-02 16:36 | Hospitalist Progress Note ---
Date of Service December 02, 2024 Assessment & Plan (1) Hypertensive crisis: Plan Pt is a Medical history significant for nonocclusive CAD, valvular heart disease (moderate MR/TR, TTE 2022), hypertension, hyperlipidemia, bronchial asthma, hypercalcemia, GERD, breast cancer status post surgery/radiation/Arimidex Rx, anxiety/mood disorder, past tobacco abuse presenting with concern for elevated blood pressures. Hypertensive crisis BP elevated too 200s/100s Pt with dizziness and headache Trop x 1 normal EKG with NSR Echo pending Head CT unremarkable Brain MRI concerning for critical c2 spinal stenosis, recommended mri c spine for followup- notes chronic degenerative changes- orthospine consulted. PT/OT ordered Renal US unremarkable Rule out sleep disordered breathing as contributory factor as well Labetalol in place of Coreg 6.25mg BID given heart rate 60s which limits dose uptitration for latter medication- currently on 100mg BID Continue Nifidepine 60mg daily and home benazapril 40mg daily (enalapril 20mg formulary alternative - increased to BID dosing) Outpatient sleep study Continue to monitor Hypercalcemia Per family pt recently diagnosed with this and has been following with endocrinology Ionized calcium level normal Chronic Medical Problems Nocturnal leg cramps possible RLS 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, TTE 2022) hyperlipidemia, on statin Rx bronchial asthma, stable hypercalcemia, [place] [facility] [place] breast cancer status post surgery/radiation/Arimidex Rx, currently in remission anxiety/mood disorder, mild anxiety during exam past tobacco abuse DVT prophylaxis with Lovenox subcu DNR Admission and Anticipated Discharge Date Admission Date: December 01, 2024 Subjective Pt was seen later in the day with daughter at bedside Notes dizziness improved Discussed imaging findings BP improved Review of Systems Review of Systems: All systems reviewed & are unremarkable except as noted in Subjective Physical Exam Physical Exam: General: Alert, oriented. No acute distress neuro: grossly unremarkable HEENT: NC/AT Chest: Nontender to palpation. CV: RRR Resp: Breath sounds clear bilaterally, no increased effort of breathing Abdomen: Soft, nontender Extremities: No edema in lower extremities bilaterally. Results & Data Results & Data Vital Signs (Past 12 Hours) Vital Signs Temp Pulse Pulse Resp BP Pulse Ox O2 Del Method 12/02/24 15:02 36.6 C 75 18 148/73 H 95 Room Air 12/02/24 10:59 36.8 C 75 18 125/63 92 Room Air 12/02/24 07:39 36.9 C 73 18 172/80 H 96 Room Air 12/02/24 07:00 68
[2024-12-03 06:48] LABS: Basophils # (auto) 0.02 K/uL (0.00-0.20); Basophils % (auto) 0.3 %; Eosinophils # (auto) 0.11 K/uL (0.00-0.50); Eosinophils % (auto) 1.7 %; Hematocrit (blood only) 36.7 % (37.0-47.0); Hemoglobin 12.3 g/dl (12.0-16.0); Immature Granulocytes # (auto) 0.02 K/uL (0.01-0.20); Immature Granulocytes % (auto) 0.3 %; Lymphocytes # (auto) 1.69 K/uL (1.20-3.40); Lymphocytes % (auto) 26.1 %; Mean Corpuscular Hemoglobin 29.9 pg (25.0-34.0); Mean Corpuscular Hgb Conc 33.5 g/dL (32.0-36.0); Mean Corpuscular Volume 89.1 fL (80.0-100.0); Mean Platelet Volume 9.3 fL (9.4-12.4); Monocytes # (auto) 0.72 K/uL (0.11-0.59); Monocytes % (auto) 11.1 %; Neutrophils # (auto) 3.91 K/uL (1.40-6.50); Neutrophils % (auto) 60.5 %; Platelet Count 300 K/uL (130-400); RDW Standard Deviation 42.6 fL (36.4-46.3); Red Blood Count 4.12 M/uL (4.20-5.40); White Blood Count 6.47 K/ul (4.8-10.8)
[2024-12-03 07:32] LABS: Albumin Globulin Ratio 1.5 (0.9-2); Albumin Level 4.3 gm/dl (3.4-5.0); BUN Creatinine Ratio 29.5 (10-20); Bilirubin,Total 0.4 mg/dl (0.2-1.0); Calcium 9.7 mg/dl (8.6-10.3); Globulin 2.9 gm/dl (2.5-4.0); Magnesium 2.2 mg/dl (1.7-2.4); Potassium 4.5 mmol/L (3.5-5.1); Total Protein 7.2 gm/dl (6.0-8.3)
[2024-12-03] MEDS: hydrOXYzine HCl 10 MG TAB PO PRN (09:06)
[2024-12-03 11:10] VITALS: BP 163/72; PULSE 67; RESP 18; TEMP 97.5; O2SAT 95
--- NOTE | 2024-12-03 12:51 | Discharge Summary ---
Discharge Summary Date of Service December 03, 2024 Principal Dx & Hospital Course #1 = Principal Diagnosis (1) Hypertensive crisis: Plan Pt is a Medical history significant for nonocclusive CAD, valvular heart disease (moderate MR/TR, TTE 2022), hypertension, hyperlipidemia, bronchial asthma, hypercalcemia, GERD, breast cancer status post surgery/radiation/Arimidex Rx, anxiety/mood disorder, past tobacco abuse presenting with concern for elevated blood pressures. Hypertensive crisis BP elevated too 200s/100s Pt with dizziness and headache Trop x 1 normal EKG with NSR Echo pending Head CT unremarkable Brain MRI concerning for critical c2 spinal stenosis, recommended mri c spine for followup- notes chronic degenerative changes- orthospine consulted. PT/OT ordered Renal US unremarkable Rule out sleep disordered breathing as contributory factor as well Labetalol in place of Coreg 6.25mg BID given heart rate 60s which limits dose uptitration for latter medication- currently on 100mg BID Continue Nifidepine 60mg daily and home benazapril 40mg daily (enalapril 20mg formulary alternative - increased to BID dosing) Outpatient sleep study Continue to monitor Hypercalcemia Per family pt recently diagnosed with this and has been following with endocrinology Ionized calcium level normal Chronic Medical Problems Nocturnal leg cramps possible RLS 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, TTE 2022) hyperlipidemia, on statin Rx bronchial asthma, stable hypercalcemia, 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 BLood pressure controlled achieved and medications adjusted. Echo unrevealing. Discussed with patient, she feels back to her baseline and would like to go home. on 12/03/2024 patient medically stable for discharge home. Admission HPI Per Admitting Provider History obtained from patient and records. 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 Patient experienced dizziness, fuzzy head sensation after visiting a friend last night. Denies chest pain, SOB. Compliant with home BP meds. Patient unaware of sleep apnea as she lives alone. Patient does not feel rested in the morning after 6 hours of sleep overnight. Occasional ibuprofen intake for transient leg cramps at night which bother her. Denies back pain or abdominal pain. Not responsive to tonic water prescribed by PCP. SBP 190 at home. Similar BP a few weeks ago related to missing some pills. SBP 215 upon arrival at the ER. IV labetalol and Coreg administered at the ER. 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 External ears normal. No rhinorrhea. Moist mucous membranes. Neck: Supple, full range of motion, no observable masses, No meningeal sign. Lungs: No Respiratory distress. CV: RRR, no edema. Abdomen: Soft, nondistended, No rebound tenderness. MSK: No joint swelling, no redness. Skin: No rashes, petechiae, lesions. Normal color per patient. Neuro: Normal Gait, Grossly intact. Psych: Appropriate for situation. Updated Medication List Medication Instructions Recorded Confirmed Type ascorbate calcium (vitamin C) 500 1,000 mg PO DAILY 12/01/24 12/01/24 History mg capsule aspirin 81 mg chewable tablet 81 mg PO DAILY 12/01/24 12/01/24 History coenzyme Q10 100 mg capsule 100 mg PO DAILY 12/01/24 12/01/24 History (CoQ-10) cyanocobalamin (vitamin B-12) 1,000 mcg PO DAILY 12/01/24 12/01/24 History 1,000 mcg tablet (Vitamin B-12) ezetimibe 10 mg tablet 10 mg PO DAILY 12/01/24 12/01/24 History fenofibrate nanocrystallized 145 145 mg PO DAILY 12/01/24 12/01/24 History mg tablet fluticasone furoate 100 1 inh inhalation DAILY 12/01/24 12/01/24 History mcg-vilanterol 25 mcg/dose inhalation powder (Breo Ellipta) glucosamine-chondroitin 250 mg-200 1 tab PO DAILY 12/01/24 12/01/24 History mg tablet (Osteo Bi-Flex) muynumxj-jyaowuv-bpst-lutein tablet 1 tab PO QAM 12/01/24 12/01/24 History nifedipine 60 mg tablet,extended 60 mg PO DAILY 12/01/24 12/01/24 History release pantoprazole 40 mg tablet,delayed 40 mg PO DAILY 12/01/24 12/01/24 History release sertraline 100 mg tablet 150 mg PO DAILY 12/01/24 12/01/24 History enalapril maleate 10 mg tablet 20 mg (2 x 10 mg) PO BID #60 tabs 12/03/24 Rx labetalol 100 mg tablet 100 mg PO BID #60 tabs 12/03/24 Rx Hospital Stay Data Consultations 12/01/24 01:00 ED Decision to Admit Stat 12/02/24 19:11 Consult Orthopedic Surgery Routine Diagnostic Imagining Performed 11/30/24 22:42 CT head/brain wo con Stat 12/01/24 17:08 MRI Brain [MR brain wo/w con] Urgent 12/02/24 US duplex renal art/vein BI Urgent 12/02/24 23:59 MR cervical spine wo/w con Stat Pending Results Patient Have Any Pending Studies at Discharge: No Discharge Instructions Given to Patient (Per Discharging Provider) 1. Please follow up with PCP within one week. 2. Follow up outpatient for hypercalcemia. 3. Get outpatient sleep study. 4. Follow up with ortho spine outpatient. Total Time Total Time Spent Total Time Spent (In Minutes): I spent a total of 35 minutes in direct patient care, including koew-hv-geoe time with the patient and/or family, reviewing medical records, ordering and reviewing diagnostic tests, and coordinating care with other healthcare providers. This time includes: history taking, physical examination, medical decision making, counseling, ECG interpretation, imaging interpretation, lab interpretation, orders, and education, excluding time spent in the performance of separately billed services.
== END 2024-12-03 13:28 | disposition home or self-care (01) | DRG 305 ==
LOC: EDINP 22:05 → ED 22:05 → 2S 12-01 03:52 → SUATTDRO 12-02 19:52

== ENCOUNTER 2024-12-19 12:11 | Inpatient (IN) ==
--- NOTE | 2024-12-19 12:43 | CT Scan Report ---
CT SCAN OF THE BRAIN WITHOUT IV CONTRAST CLINICAL HISTORY: Stroke. COMPARISON STUDY: Head CT November 30, 2024. MRI of the brain December 01, 2024. TECHNIQUE: Unenhanced axial CT scan of the brain was performed from the vertex to the skull base. A dose lowering technique was utilized adhering to the principles of ALARA. FINDINGS: Brain parenchyma: No acute intracranial hemorrhage, midline shift or mass effect is present. Torres-whi te matter differentiation is preserved. There are no extra-axial fluid collections. There are no find ings to suggest acute dural sinus thrombosis or acute territorial infarct. White matter hypodensities are unchanged and favor small vessel disease. Ventricles, sulci, cisterns: There is no hydrocephalus. The basal cisterns are patent. Calvarium: Unremarkable. Sinuses and mastoids: The visualized paranasal sinuses are clear. The mastoid air cells are well pneu matized. Orbits: The bony orbits are grossly intact. IMPRESSION: No acute intracranial findings. ACT 112: Negative or not required by law. Electronically signed by: Valentino Kaur M.D. 12/19/2024 12:42 PM
[2024-12-19 12:44] LABS: iSTAT Creatinine 1.1 mg/dl (0.6-1.3); iSTAT Hemoglobin 11.2 g/dl (12.0-16.0); iSTAT Ionized Calcium 1.27 mmol/l (1.12-1.32); iSTAT Potassium 4.4 mmol/L (3.3-5.0)
--- NOTE | 2024-12-19 12:48 | CT Scan Report ---
CT angio head w con CLINICAL HISTORY: neuro deficit, acute stroke suspected. COMPARISON STUDY: CT scan earlier today TECHNIQUE: Unenhanced axial CT scan of the brain is performed. Subsequently, following the IV adminis tration of 115 cc of Optiray, CT angiogram of the brain was performed from the skull base to the vert ex. Images are reviewed in the axial, sagittal, and coronal planes. 3-D MIPS images are created and a ssessed. IV contrast was administered without complication. All measurements were obtained according to NASCET criteria. A dose lowering technique was utilized adhering to the principles of ALARA. FINDINGS: Right vertebral artery is dominant and the left vertebral artery is diminutive, anatomic va riant. Basilar artery is widely patent. Distal internal carotid arteries are widely patent. Anterior, middle, and posterior cerebral arteries are patent bilaterally. Cerebral venous sinuses opacify norm ally. IMPRESSION: No significant arterial narrowing or occlusion seen at the brain. ACT 112: Negative or not required by law. The above report was generated using voice recognition software. It may contain grammatical, syntax o r spelling errors. Electronically signed by: Hiram Cordova M.D. 12/19/2024 12:46 PM
--- NOTE | 2024-12-19 12:52 | CT Scan Report ---
CT angio neck with con CLINICAL HISTORY: 79 years-old Female with neuro deficit, acute stroke suspected. Acute stroke lik e symptoms COMPARISON STUDY: CTA head of same day, brain MRI 12/21 TECHNIQUE: Following the IV administration of 115 mL of Optiray, CT angiogram of the neck was perform ed from the aortic arch to the skull base. Images are reviewed in the axial, sagittal, and coronal pl anes. 3-D MIPS images are created and assessed. IV contrast was administered without complication. Al l measurements were calculated based on NASCET criteria. A dose lowering technique was utilized adhe ring to the principles of ALARA. CT DOSE: 1084.58 mGy.cm FINDINGS: Atherosclerosis of the thoracic aortic arch. Patency of the innominate and imaged subclavian arteries . The common carotid arteries are patent. There is severe atherosclerosis of the right carotid bulb w hich causes 60% stenosis on image 218 series 7. The right ICA is patent. Atherosclerosis of the left carotid bulb causes less than 50% stenosis. Dominant right vertebral artery demonstrates multifocal m oderate to high-grade stenosis within the V2 segment secondary to uncovertebral hypertrophy and facet arthrosis of the cervical spine. High-grade stenosis at the origin of the left vertebral artery. Mil d multifocal stenoses of the left vertebral artery V2 segment. Patent basilar artery. CTA head dictat ed separately. The lung apices appear clear. Unremarkable soft tissues. Multilevel degenerative changes of the spine which are moderate to advanced. IMPRESSION: 1. Prominent atherosclerosis of the right carotid bulb causes 60% stenosis of the proximal cervical s egment right ICA. 2. Dominant right vertebral artery demonstrates multifocal moderate to high-grade stenosis within the V2 segment secondary to degenerative changes of the cervical spine. 3. High-grade stenosis is present at the origin of the developmentally diminutive left vertebral epi ry. ACT 112: Negative or not required by law. The above report was generated using voice recognition software. It may contain grammatical, syntax o r spelling errors. Electronically signed by: Steven Napoles M.D. 12/19/2024 12:50 PM
[2024-12-19 12:54] LABS: Basophils # (auto) 0.05 K/uL (0.00-0.20); Basophils % (auto) 0.7 %; Eosinophils # (auto) 0.11 K/uL (0.00-0.50); Eosinophils % (auto) 1.5 %; Hemoglobin 11.4 g/dl (12.0-16.0); Immature Granulocytes # (auto) 0.02 K/uL (0.01-0.20); Immature Granulocytes % (auto) 0.3 %; Lymphocytes # (auto) 0.97 K/uL (1.20-3.40); Lymphocytes % (auto) 12.9 %; Mean Corpuscular Hemoglobin 29.8 pg (25.0-34.0); Mean Corpuscular Hgb Conc 33.5 g/dL (32.0-36.0); Mean Corpuscular Volume 88.8 fL (80.0-100.0); Mean Platelet Volume 9.2 fL (9.4-12.4); Neutrophils # (auto) 5.75 K/uL (1.40-6.50); Neutrophils % (auto) 76.6 %; Partial Thromboplastin Time 26 Seconds (21-31); Platelet Count 282 K/uL (130-400); Prothrombin Time 11.1 Seconds (9.0-12.0); RDW Standard Deviation 41.9 fL (36.4-46.3); Red Blood Count 3.83 M/uL (4.20-5.40)
--- NOTE | 2024-12-19 12:58 | XRay Report ---
XR chest 1V portable CLINICAL HISTORY: neuro deficit, acute stroke suspected COMPARISON STUDY: 11/30/2024 FINDINGS: Heart size and pulmonary vasculature are normal. No effusion, consolidation, or pneumothora x. IMPRESSION: No acute findings. ACT 112: Negative or not required by law. Electronically signed by: Hiram Cordova M.D. 12/19/2024 12:56 PM
[2024-12-19 12:59] LABS: Albumin Globulin Ratio 1.3 (0.9-2); BUN Creatinine Ratio 22.8 (10-20); Bilirubin,Total 0.4 mg/dl (0.2-1.0); Creatinine Clr Calc Pharmacy 45.2 ml/min; Magnesium 2.3 mg/dl (1.7-2.4); Potassium 4.4 mmol/L (3.5-5.1)
[2024-12-19 13:04] LABS: Troponin I High Sensitivity 3.7 pg/ml (0-14)
--- NOTE | 2024-12-19 13:08 | Emergency Department Note ---
Impression & Plan Near syncope, Stroke-like symptoms, Hypertensive urgency ED Provider Note NAME: DOUG BOLAND AGE: 79 SEX: F : 1945 ARRIVES VIA: Ambulance INFORMANT: Patient ED PROVIDER(S): Josue Moreno MD CHIEF COMPLAINT: Near syncope, strokelike symptoms PLAN: Disposition: Admit MEDICAL DECISION MAKING: The patient is a pleasant 79-year-old woman with a past medical history of hypertension, hyperlipidemia, anxiety presents to the emergency department via EMS for strokelike symptoms and near syncope which occurred abruptly at 1030 when she was playing a video game on her tablet and began to have a posterior headache that was severe and began to feel associated numbness and tingling in her face and extremities. She felt her vision blurred and as if she was going to pass out. She denies losing consciousness. When the patient's daughter arrived to check on her after the patient had contacted her she found her laying on the couch with her eyes open staring at the ceiling but not responding. The patient however does recall her daughter attempting to talk to her. EMS arrived and noted the patient was hyperventilating and experiencing interval panic attack. They were able to redirect her and the symptoms improved however still feeling heaviness in her legs. The patient was admitted to this facility from 12/02-12/03 for hypertensive crisis. She had a MRI of her brain and cervical spine completed that did not show acute abnormalities. While EMS did report mostly resolved symptoms, given unclear character, pattern of symptoms and onset stroke alert was activated in the field and the patient was taken directly to CT upon arrival. On my assessment the Emergency Department the patient is anxious appearing but no distress, afebrile blood pressure 160/70s and vital signs otherwise stable. She reports only subjective heaviness in bilateral lower extremities. Otherwise she exhibits no objective extremity weakness. Cranial nerves II-XII grossly intact. 5/5 strength and SILT x 4 extremities. Cerebellar function intact including [id number], alternating palms, [id number]. Given the patient's symptoms had resolved patient was not considered to be a TNK candidate. CT imaging also did not show evidence of LVO and so no indication for endovascular therapy. Otherwise CT of the head was negative for ICH or ischemia. CTA of the head was negative for LVO. CTA of the neck demonstrates high-grade stenosis of the left vertebral artery and dominant right vertebral artery which shows high-grade stenosis as well. EKG without overt acute ischemia. CXR negative for acute cardiopulmonary process per my personal preliminary review/interpretation. WBC and platelets within normal limits. H/H approximate to prior values. Chemistry without metabolic acidosis. Sodium 133 and otherwise electrolytes and LFTs unremarkable. Initial high-sensitivity troponin 3.7, within normal limits. UA without convincing evidence of infection. Given severity of symptoms prior to arrival and patient risk factors patient feels agree plan for admission for further management. Case was discussed with Vipul Monroy, with [facility] who will evaluate the patient for admission. Further management per admitting team. Triage Nursing notes reviewed and agree them. Prior/external medical records reviewed Vital Signs: reviewed Differential diagnosis: Infection, dehydration, metabolic abnormality, hypo/hyperglycemia, electrolyte disturbance, anemia, hypoxia, cardiac sources, intracerebral event, toxicologic, neurologic, as well as other pathologies. ER treatment provided: See below. Diagnostics interpreted by me: ECG: Normal sinus rhythm, 70 bpm, no ectopy, LVH, no overt ST ovation or depression, QTc 460, QRS 94 Cardiac Monitoring: An order for continuous cardiac monitoring was placed and demonstrated Normal sinus rhythm, 70 bpm, no ectopy. Laboratory studies: See below Imaging studies: See below Consultation(s): Case was discussed with Vipul Monroy, with [facility] who will evaluate the patient for admission. HPI: Per MDM. ROS: See above HPI for pertinent positives & negatives. A total of 10 systems reviewed and were otherwise negative. VITALS:See Below PHYSICAL EXAMINATION: GENERAL: Awake, alert, anxious-appearing, in no distress, BMI 28.0. HENT: Normocephalic, atraumatic. Oropharynx with dry mucous membranes and otherwise unremarkable. EYES: Normal conjunctiva. Sclera non-icteric. NECK: Supple. No nuchal rigidity. FROM. No JVD. RESPIRATORY: Clear to auscultation. CARDIAC: Regular rate, normal rhythm. Extremities warm and well perfused. Pulses equal. ABDOMEN: Soft, non-distended. No tenderness to palpation. No rebound or guarding. No masses. MUSCULOSKELETAL: Chest examination reveals no tenderness. The back is symmetrical on inspection without obvious abnormality. There is no CVA tenderness to palpation. No joint edema. LOWER EXTREMITIES: Calves are equal size bilaterally and non-tender. No edema. No discoloration. NEURO: Cranial nerves II-XII grossly intact. 5/5 strength and SILT x 4 extremities. Cerebellar function intact including [id number], alternating palms, [id number]. SKIN: No rash or jaundice noted. Josue Moreno MD Past Med/Surg History Problem List (Updated 12/20/24 @ 02:13 by Josue Moreno MD) Stroke-like symptoms (Acute) Near syncope (Acute) Lightheadedness Hypertensive crisis Hypertensive urgency (Acute) Medical History Breast cancer left breast. s/p lumpectomy No pertinent family history HLD (hyperlipidemia) HTN (hypertension) Surgical History History of hysterectomy History of partial mastectomy of left breast Family History Mother Cancer Brother Stroke Social History Smoking Status: Former smoker Tobacco Type: Cigarettes Cigarettes Per Day: 1 PPD; Second Hand Exposure: Yes; Do You Dip or Chew Tobacco: No; Hx Alcohol Use: No Hx Substance Use: No Preferred Language: Jordanian Communication Ability: Effective Circuit Designer Required: No Beliefs That Will Affect Care: None Current Living Situation: Alone Other Information That Helps Us Care for You: No Feels Safe at Home: Yes Safety Concerns: Feels Safe At This Time Assistive Devices: Denture - Upper Allergies Allergies Allergy/AdvReac Type Severity Reaction Status Date / Time amoxicillin AdvReac Mild Vomiting Verified 12/01/24 01:19 Home Meds Home Medications Medication Instructions Recorded Confirmed ascorbate calcium (vitamin C) 500 1,000 mg PO DAILY 12/01/24 12/19/24 mg capsule coenzyme Q10 100 mg capsule 100 mg PO DAILY 12/01/24 12/19/24 (CoQ-10) cyanocobalamin (vitamin B-12) 1,000 mcg PO DAILY 12/01/24 12/19/24 1,000 mcg tablet (Vitamin B-12) ezetimibe 10 mg tablet 10 mg PO DAILY 12/01/24 12/19/24 fenofibrate nanocrystallized 145 145 mg PO DAILY 12/01/24 12/19/24 mg tablet fluticasone furoate 100 1 inh inhalation DAILY 12/01/24 12/19/24 mcg-vilanterol 25 mcg/dose inhalation powder (Breo Ellipta) glucosamine-chondroitin 250 mg-200 1 tab PO PM 12/01/24 12/19/24 mg tablet (Osteo Bi-Flex) nifedipine 60 mg tablet,extended 60 mg PO DAILY 12/01/24 12/19/24 release pantoprazole 40 mg tablet,delayed 40 mg PO DAILY 12/01/24 12/19/24 release sertraline 100 mg tablet 150 mg PO DAILY 12/01/24 12/19/24 aspirin 81 mg tablet,delayed 81 mg PO PM 12/19/24 12/19/24 release benazepril 20 mg tablet 20 mg PO BID 12/19/24 12/19/24 Previous Rx's Medication Instructions Recorded labetalol 100 mg tablet 100 mg PO BID #60 tabs 12/03/24 Results & Data (ED) Vital Signs Vital Signs - 24 hr 12/19/24 12:12 12/19/24 12:12 12/19/24 12:30 Temperature 36.9 C Temperature Source Oral Pulse Rate 76 76 Pulse Rate [Apical] Pulse Rate from SpO2 Sensor Respiratory Rate 20 24 Respiratory Effort / Characteristics Non-Labored Spontaneous Respiratory Depth Normal Respiratory Pattern Regular Blood Pressure 166/78 H 166/78 H Blood Pressure [Right Arm] Blood Pressure Mean 107 127 Blood Pressure Mean [Right Arm] Blood Pressure Position [Right Arm] Pulse Oximetry 97 97 98 Oxygen Delivery Method Room Air Room Air Room Air Sepsis Recent Fever Within 48 Hours No Sepsis New/Unexplained Change in Mental Status N/A Sepsis Action Taken by Nursing No Action Required 12/19/24 12:45 12/19/24 13:00 12/19/24 13:00 Temperature Temperature Source Pulse Rate 73 73 Pulse Rate [Apical] Pulse Rate from SpO2 Sensor 72 Respiratory Rate 14 24 Respiratory Effort / Characteristics Respiratory Depth Respiratory Pattern Blood Pressure 168/101 H 161/78 H 161/78 H Blood Pressure [Right Arm] Blood Pressure Mean 123 105 123 Blood Pressure Mean [Right Arm] Blood Pressure Position [Right Arm] Pulse Oximetry 97 98 Oxygen Delivery Method Room Air Room Air Sepsis Recent Fever Within 48 Hours Sepsis New/Unexplained Change in Mental Status Sepsis Action Taken by Nursing 12/19/24 13:09 12/19/24 13:15 12/19/24 13:15 Temperature Temperature Source Pulse Rate 74 Pulse Rate [Apical] Pulse Rate from SpO2 Sensor 74 Respiratory Rate 18 Respiratory Effort / Characteristics Respiratory Depth Respiratory Pattern Blood Pressure 190/108 H 190/108 H Blood Pressure [Right Arm] Blood Pressure Mean 166 166 Blood Pressure Mean [Right Arm] Blood Pressure Position [Right Arm] Pulse Oximetry 97 Oxygen Delivery Method Sepsis Recent Fever Within 48 Hours Sepsis New/Unexplained Change in Mental Status Sepsis Action Taken by Nursing 12/19/24 13:33 12/19/24 13:46 12/19/24 14:00 Temperature Temperature Source Pulse Rate 66 72 Pulse Rate [Apical] 75 Pulse Rate from SpO2 Sensor 66 Respiratory Rate 22 19 Respiratory Effort / Characteristics Non-Labored Spontaneous Respiratory Depth Normal Respiratory Pattern Blood Pressure Blood Pressure [Right Arm] 179/90 H Blood Pressure Mean Blood Pressure Mean [Right Arm] 119 Blood Pressure Position [Right Arm] Semi-fowlers Pulse Oximetry 97 97 Oxygen Delivery Method Room Air Sepsis Recent Fever Within 48 Hours Sepsis New/Unexplained Change in Mental Status Sepsis Action Taken by Nursing 12/19/24 14:00 12/19/24 14:33 Temperature Temperature Source Pulse Rate 66 69 Pulse Rate [Apical] Pulse Rate from SpO2 Sensor 66 69 Respiratory Rate 14 18 Respiratory Effort / Characteristics Respiratory Depth Respiratory Pattern Blood Pressure Blood Pressure [Right Arm] Blood Pressure Mean Blood Pressure Mean [Right Arm] Blood Pressure Position [Right Arm] Pulse Oximetry 98 97 Oxygen Delivery Method Sepsis Recent Fever Within 48 Hours Sepsis New/Unexplained Change in Mental Status Sepsis Action Taken by Nursing Laboratory Data Attestation: I reviewed the patient's lab results. 12/19/24 12:28 12/19/24 12:28 Lab Results 12/19/24 12/19/24 12/19/24 Range/Units 12:28 12:29 12:32 WBC 7.50 (4.8-10.8) K/ul RBC 3.83 L (4.20-5.40) M/uL Hgb 11.4 L (12.0-16.0) g/dl POC Hgb 11.2 L (12.0-16.0) g/dl Hct 34.0 L (37.0-47.0) % POC Hct 33 L (37-47) % MCV 88.8 (80.0-100.0) fL MCH 29.8 (25.0-34.0) pg MCHC 33.5 (32.0-36.0) g/dL RDW Std Deviation 41.9 (36.4-46.3) fL RDW Coeff of [place] 13.0 (11.5-14.5) % Plt Count 282 (130-400) K/uL MPV 9.2 L (9.4-12.4) fL Immature Gran % (Auto) 0.3 % Neut % (Auto) 76.6 % Lymph % (Auto) 12.9 % [place] % (Auto) 8.0 % Eos % (Auto) 1.5 % Baso % (Auto) 0.7 % Neut # (Auto) 5.75 (1.40-6.50) K/uL Lymph # (Auto) 0.97 L (1.20-3.40) K/uL [place] # (Auto) 0.60 H (0.11-0.59) K/uL Eos # (Auto) 0.11 (0.00-0.50) K/uL Baso # (Auto) 0.05 (0.00-0.20) K/uL Immature Gran # (Auto) 0.02 (0.01-0.20) K/uL PT 11.1 (9.0-12.0) Seconds INR 1.0 (0.9-1.1) APTT 26 (21-31) Seconds PTT Ratio 1.0 POC Sodium 133 L (135-144) mmol/L Sodium 133 L (136-145) mmol/L POC Potassium 4.4 (3.3-5.0) mmol/L Potassium 4.4 (3.5-5.1) mmol/L POC Chloride 102 (101-112) mmol/L Chloride 103 (98-107) mmol/L Carbon Dioxide 23 (21-32) mmol/L POC Total CO2 20 L (24-31) mmol/L Anion Gap 7 (3-11) POC Anion Gap 17.0 (16-25) mmol/L POC BUN 23 H (7-18) mg/dl BUN 23 (6-23) mg/dl Creatinine 1.01 (0.6-1.2) mg/dl POC Creatinine 1.1 (0.6-1.3) mg/dl Est Cr Clr Drug Dosing 45.2 ml/min eGFR 56.28 BUN/Creatinine Ratio 22.8 H (10-20) Glucose 110 H (70-99(Fasting)) mg/dl POC Glucose (other) 105 H (70-99) mg/dl Osmolality 294 (280-300) mOsm/kg Calcium 10.0 (8.6-10.3) mg/dl POC Ioniz Calcium Gianluca 1.27 (1.12-1.32) mmol/l Magnesium 2.3 (1.7-2.4) mg/dl Total Bilirubin 0.4 (0.2-1.0) mg/dl AST 19 (13-39) U/L ALT 16 (7-52) U/L Alkaline Phosphatase 44 (34-104) U/L Troponin I High Sens 3.7 (0-14) pg/ml Total Protein 7.0 (6.0-8.3) gm/dl Albumin 4.0 (3.4-5.0) gm/dl Globulin 3.0 (2.5-4.0) gm/dl Albumin/Globulin Ratio 1.3 (0.9-2) Administered Medications Enoxaparin Sodium (Enoxaparin Inj 40 Mg/0.4 Ml Syr) 40 mg SQ Q24H MEHRDAD Stop: 01/18/25 17:29 Last Admin: 12/19/24 17:52 Dose: 40 mg Documented By: KAB Discontinued Medications Ioversol (Optiray 320 125ml) 115 ml IV ONCE ONE Stop: 12/19/24 12:32 Last Admin: 12/19/24 12:32 Dose: 115 ml Documented By: ABS Imaging Data Radiologist's Impression: Chest X-Ray 12/19/24 12:06 XR chest 1V portable CLINICAL HISTORY: neuro deficit, acute stroke suspected COMPARISON STUDY: 11/30/2024 FINDINGS: Heart size and pulmonary vasculature are normal. No effusion, consolidation, or pneumothorax. IMPRESSION: No acute findings. ACT 112: Negative or not required by law. Electronically signed by: Hiram Cordova M.D. 12/19/2024 12:[address] 12/19/24 12:06 CT SCAN OF THE BRAIN WITHOUT IV CONTRAST CLINICAL HISTORY: Stroke. COMPARISON STUDY: Head CT November 30, 2024. MRI of the brain December 01, 2024. TECHNIQUE: Unenhanced axial CT scan of the brain was performed from the vertex to the skull base. A dose lowering technique was utilized adhering to the principles of ALARA. FINDINGS: Brain parenchyma: No acute intracranial hemorrhage, midline shift or mass effect is present. Torres-white matter differentiation is preserved. There are no extra- axial fluid collections. There are no findings to suggest acute dural sinus thrombosis or acute territorial infarct. White matter hypodensities are unchanged and favor small vessel disease. Ventricles, sulci, cisterns: There is no hydrocephalus. The basal cisterns are patent. Calvarium: Unremarkable. Sinuses and mastoids: The visualized paranasal sinuses are clear. The mastoid air cells are well pneumatized. Orbits: The bony orbits are grossly intact. IMPRESSION: No acute intracranial findings. ACT 112: Negative or not required by law. Electronically signed by: Valentino Kaur M.D. 12/19/2024 12:42 PM Head CTA 12/19/24 12:06 CT angio head w con CLINICAL HISTORY: neuro deficit, acute stroke suspected. COMPARISON STUDY: CT scan earlier today TECHNIQUE: Unenhanced axial CT scan of the brain is performed. Subsequently, following the IV administration of 115 cc of Optiray, CT angiogram of the brain was performed from the skull base to the vertex. Images are reviewed in the axial, sagittal, and coronal planes. 3-D MIPS images are created and assessed. IV contrast was administered without complication. All measurements were obtained according to NASCET criteria. A dose lowering technique was utilized adhering to the principles of ALARA. FINDINGS: Right vertebral artery is dominant and the left vertebral artery is diminutive, anatomic variant. Basilar artery is widely patent. Distal internal carotid arteries are widely patent. Anterior, middle, and posterior cerebral arteries are patent bilaterally. Cerebral venous sinuses opacify normally. IMPRESSION: No significant arterial narrowing or occlusion seen at the brain. ACT 112: Negative or not required by law. The above report was generated using voice recognition software. It may contain grammatical, syntax or spelling errors. Electronically signed by: Hiram Cordova M.D. 12/19/2024 12:46 PM Neck CTA 12/19/24 12:06 CT angio neck with con CLINICAL HISTORY: 79 years-old Female with neuro deficit, acute stroke suspected. Acute stroke like symptoms COMPARISON STUDY: CTA head of same day, brain MRI 12/21 TECHNIQUE: Following the IV administration of 115 mL of Optiray, CT angiogram of the neck was performed from the aortic arch to the skull base. Images are reviewed in the axial, sagittal, and coronal planes. 3-D MIPS images are created and assessed. IV contrast was administered without complication. All measurements were calculated based on NASCET criteria. A dose lowering technique was utilized adhering to the principles of ALARA. CT DOSE: 1084.58 mGy.cm FINDINGS: Atherosclerosis of the thoracic aortic arch. Patency of the innominate and imaged subclavian arteries. The common carotid arteries are patent. There is severe atherosclerosis of the right carotid bulb which causes 60% stenosis on image 218 series 7. The right ICA is patent. Atherosclerosis of the left carotid bulb causes less than 50% stenosis. Dominant right vertebral artery demonstrates multifocal moderate to high-grade stenosis within the V2 segment secondary to uncovertebral hypertrophy and facet arthrosis of the cervical spine. High-grade stenosis at the origin of the left vertebral artery. Mild multifocal stenoses of the left vertebral artery V2 segment. Patent basilar artery. CTA head dictated separately. The lung apices appear clear. Unremarkable soft tissues. Multilevel degenerative changes of the spine which are moderate to advanced. IMPRESSION: 1. Prominent atherosclerosis of the right carotid bulb causes 60% stenosis of the proximal cervical segment right ICA. 2. Dominant right vertebral artery demonstrates multifocal moderate to high- grade stenosis within the V2 segment secondary to degenerative changes of the cervical spine. 3. High-grade stenosis is present at the origin of the developmentally diminutive left vertebral artery. ACT 112: Negative or not required by law. The above report was generated using voice recognition software. It may contain grammatical, syntax or spelling errors. Electronically signed by: Steven Napoles M.D. 12/19/2024 12:50 PM Discharge Plan Visit Data Chief Complaint: Stroke Alert ED Provider: Josue Moreno Discharge Problem: Near syncope, Stroke-like symptoms, Hypertensive urgency Patient Disposition: Admitted As Inpatient Condition: Good Discharge Instructions Interventions: ED Discharge Assessment Last Done: 12/19/24 16:51
--- NOTE | 2024-12-19 13:59 | History & Physical Report ---
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 Recent admission 12/01/2024-12/03/2024 for hypertensive crisis with BP's at that time 200s over 100s and patient had reported dizziness and headache and her carvedilol was discontinued and labetalol 100 mg twice daily started, and benazepril discontinued and was started on enalapril 20 mg twice daily Suspect presyncope. DDx: vasovagal, orthostatic hypotension, possible cervical spine disease etiology. Not consistent In ER afebrile, P: 76, BP: 166/78, R: 20, 97% on room air CT Head: no acute intracranial CTA Head: No significant arterial narrowing or occlusion seen at the brain. CTA Neck: 1. Prominent atherosclerosis of the right carotid bulb causes 60% stenosis of the proximal cervical segment right ICA. 2. Dominant right vertebral artery demonstrates multifocal moderate to high-grade stenosis within the V2 segment secondary to degenerative changes of the cervical spine. 3. High-grade stenosis is present at the origin of the developmentally diminutive left vertebral artery. CXR: no acute findings 12/01/24 Brain MRI: No evidence of acute intracranial pathology. There was concern for spinal canal stenosis at C2 with abnormal CSF signal anterior and posterior to the cord, which may represent artifact are blood. 12/02/24 MRI c-spine: No acute process within the cervical spine by MRI. The abnormality the C2 level on MRI of December 01, 2024 is due to chronic degenerative changes, as described above. Moderate central canal narrowing at this level. Moderate to severe multilevel facet arthrosis and degenerative disc disease within the cervical spine. Mild to moderate central canal stenosis at several levels in severe neural foraminal stenosis. No cervical spine fractures. No suspicious marrow replacement. No definite cervical cord signal abnormality. Exam mildly compromised by motion artifact. 12/02/24 Renal US: No sonographic evidence for renal artery stenosis. Obtain orthostatic vital signs Consider ortho spine consult for C2 degenerative changes. Unfortunately not available this weekend Spoke with vascular, Dr Yang on phone who felt she more right sided dominant at baseline and didn't feel current findings of stenosis on CTA neck was cause of symptoms and did not recommend urgent procedure or need for transfer, recommends f/u carotid us in 6 months for the R ICA stenosis #CP History intermittent episodes of left chest pressure and "pulling" sensation with associated SOB. Denies N/V, diaphoresis, palpitations or dizziness at times of CP Per outpatient PCP note on 12/10/24 and she had reported intermittent CP/Chest tightness, that patient thinks are related to her BP med change and PCP discontinued the enalapril and put back on benazepril 20mg BID and stress test was ordered and is scheduled for next week. Today In ER initial troponin negative and EKGs without ST elevation 12/02/24 Echo: EF: 60-65%, mild mitral annular calcification, mild aortic stenosis, grade I diastolic dysfunction Low suspicion for ACS at this time Trend troponin Continue home aspirin, ezetimibe, fenofibrate, home BP's meds (2) HTN (hypertension): Plan: SBPs in ER 160's-170's 12/02/24 admission carvedilol was discontinued and labetalol 100 mg twice daily started and home benazepril discontinued and was started on enalapril 20 mg twice daily Recent follow up with PCP enalapril was dc and benazepril 20mg BID started. Continue home nifedipine, labetalol, benazepril Monitor BP (3) HLD (hyperlipidemia): Plan: Intolerant to statins Continue home ezetimibe, fenofibrate (4) Breast cancer: Plan: Left breast CA s/p partial mastectomy, radiation DVT Prophylaxis Lovenox SQ Admit telemetry Full Code for now as per discussion with pt, however she reports would not want prolonged ventilation if poor prognosis. Follows with Dr Diana for routine care Pt was seen and care coordinated with Dr Kim. See addendum I spent a total of 70 minutes reviewing notes, outpatient records, labs, medication, coordinating, documenting and providing care for this patient excluding time spent in the performance of separately billed services and excluding time spent by another provider/QHP. 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 Per inpatient chart review recent [facility] hospital admission 12/01/2024-12/03/2024 for hypertensive crisis with BP's at that time 200s over 100s and patient had reported dizziness and headache and her medications were adjusted. 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 She reports that this morning feeling baseline ate breakfast, took her am medications and did laundry and dishes and was not having symptoms at the time. She states around 10:45AM sitting playing on ipad and had posterior MAJOR, blurry vision, lightheaded with then numbness in face, bilateral upper and lower extremities and entire body. She states she checked her SBP 110. States her head felt "fuzzy like cotton" and she felt like she was going to fall so she went to couch to rest supine. She called her daughter and granddaughter to come check on her. States she was lying down and was "screaming out" but felt like she couldn't stop screaming. Daughter states when she got there patient was lying on couch and was staring off but didn't seem to be responding to her, so she shook patient and then patient seemed more responsive. Denies any noted tonic clonic movements. Denies loss control of bowel or bladder. Denies any noted facial drooping or speech changes. Granddaughter states took manual BP when she arrived and BP was 138/58. Patient reports home SBP's have been around 160 with automatic BP cuff. Patient states has been having intermittent episodes of "head feeling funny like cotton and eyes feel funny", but denies diplopia, vision loss, blurry vision, eye pain. States initially thought this was secondary to her elevated BP as it started around the time of most recent admission but symptoms have continued intermittently. Reports having intermittent episodes of chest tightness and chest "pulling sensation" to left side of chest that sometimes has associated SOB. Denies noted palpitations, heart racing, nausea or vomiting. Typically this CP occurs at rest but can also occur with activity. has been not doing a lot of house work as she was concerned with her elevated BP and has been having overall fatigue. She feels she has been eating and drinking well. Per outpatient PCP note on 12/10/24 and she had reported intermittent CP/Chest tightness, fatigue, decreased appetite that patient thinks are related to her BP med change and PCP discontinued the enalapril and put back on benazepril 20mg BID and stress test was ordered. Denies fever/chills, d iaphoresis, N/V/D/C, orthopnea, cough, sore throat, choking, otalgia, rhinorrhea, abdominal pain, extremity weakness, extremity edema, rashes, urinary symptoms, melena, hematochezia. During ER course her lightheaded sensation, "fuzzy head, fuzzy eyes" sensation as well as paresthesias have resolved. During ER course she developed chest "pulling and tightness" sensation to left chest with associated SOB that lasted several minutes and self resolved. Her repeat EKG was normal sinus rhythm without acute ST changes per my interpretation. Allergies Allergy/AdvReac Type Severity Reaction Status Date / Time amoxicillin AdvReac Mild Vomiting Verified 12/01/24 01:19 Home Medications Medication Instructions Recorded Confirmed Type ascorbate calcium (vitamin C) 500 1,000 mg PO DAILY 12/01/24 12/19/24 History mg capsule coenzyme Q10 100 mg capsule 100 mg PO DAILY 12/01/24 12/19/24 History (CoQ-10) cyanocobalamin (vitamin B-12) 1,000 mcg PO DAILY 12/01/24 12/19/24 History 1,000 mcg tablet (Vitamin B-12) ezetimibe 10 mg tablet 10 mg PO DAILY 12/01/24 12/19/24 History fenofibrate nanocrystallized 145 145 mg PO DAILY 12/01/24 12/19/24 History mg tablet fluticasone furoate 100 1 inh inhalation DAILY 12/01/24 12/19/24 History mcg-vilanterol 25 mcg/dose inhalation powder (Breo Ellipta) glucosamine-chondroitin 250 mg-200 1 tab PO PM 12/01/24 12/19/24 History mg tablet (Osteo Bi-Flex) nifedipine 60 mg tablet,extended 60 mg PO DAILY 12/01/24 12/19/24 History release pantoprazole 40 mg tablet,delayed 40 mg PO DAILY 12/01/24 12/19/24 History release sertraline 100 mg tablet 150 mg PO DAILY 12/01/24 12/19/24 History labetalol 100 mg tablet 100 mg PO BID #60 tabs 12/03/24 12/19/24 Rx aspirin 81 mg tablet,delayed 81 mg PO PM 12/19/24 12/19/24 History release benazepril 20 mg tablet 20 mg PO BID 12/19/24 12/19/24 History Past Med/Surg History Problem List Lightheadedness Hypertensive crisis Hypertensive urgency (Acute) Medical History Breast cancer left breast. s/p lumpectomy No pertinent family history HLD (hyperlipidemia) HTN (hypertension) Surgical History History of hysterectomy History of partial mastectomy of left breast Family History (Updated 12/19/24 @ 15:34 by Melani Gray PA-C) Mother Cancer Brother Stroke Social History Smoking Status: Former smoker Tobacco Type: Cigarettes Cigarettes Per Day: 1 PPD; Second Hand Exposure: Yes; Hx Alcohol Use: No Hx Substance Use: No Preferred Language: Thai Communication Ability: Effective Monorail Operator Required: No Beliefs That Will Affect Care: None Current Living Situation: Alone Feels Safe at Home: Yes Assistive Devices: Denture - Upper Review of Systems Review of Systems: All systems reviewed & are unremarkable except as noted in HPI & below Physical Exam Physical Exam: General: no acute distress, WDWN Head: normocephalic, atraumatic Eyes: PERRL, EOM's intact, conjunctiva non-injected, anicteric ENT: normal inspection external ears, nose, mucous membranes moist Neck: supple, trachea midline, non-tender to palpation Lungs: clear, no respiratory distress, no wheezing/rhonchi/rales CV: RRR, no murmur, no pretibial edema Abd: normal BS, soft, non-tender Ext: no cyanosis, no calf tenderness Neuro: A&O x 3, no focal deficits noted, facial sensation is intact and symmetric, face is strong and symmetric, hearing grossly intact, soft palate elevates symmetrically, no dysarthria, shoulder shrug intact, tongue is midline, normal movement, no fasciculations. Muscle tone normal. strength 5/5 bilateral upper extremities, 4/5 bilateral lower extremities. normal affect Skin: warm, dry Results & Data Results & Data Vital Signs (Past 12 Hours) Vital Signs Temp Pulse Resp BP Pulse Ox O2 Del Method 12/19/24 13:46 72 12/19/24 13:00 73 24 161/78 H 98 Room Air 12/19/24 12:45 73 14 168/101 H 97 Room Air 12/19/24 12:30 76 24 166/78 H 98 Room Air 12/19/24 12:12 97 Room Air 12/19/24 12:12 36.9 C 76 20 166/78 H 97 Room Air Laboratory Results Short CBC 12/19/24 Range/Units 12:28 WBC 7.50 (4.8-10.8) K/ul Hgb 11.4 L (12.0-16.0) g/dl Hct 34.0 L (37.0-47.0) % Plt Count 282 (130-400) K/uL BMP 12/19/24 12:28 Sodium 133 L Potassium 4.4 Chloride 103 Carbon Dioxide 23 BUN 23 Creatinine 1.01 Glucose 110 H Calcium 10.0 Liver Function 12/19/24 Range/Units 12:28 Total Bilirubin 0.4 (0.2-1.0) mg/dl AST 19 (13-39) U/L ALT 16 (7-52) U/L Alkaline Phosphatase 44 (34-104) U/L Albumin 4.0 (3.4-5.0) gm/dl Diagnostic Findings Chest X-Ray 12/19/24 12:06 XR chest 1V portable CLINICAL HISTORY: neuro deficit, acute stroke suspected COMPARISON STUDY: 11/30/2024 FINDINGS: Heart size and pulmonary vasculature are normal. No effusion, consolidation, or pneumothorax. IMPRESSION: No acute findings. ACT 112: Negative or not required by law. Electronically signed by: Hiram Cordova M.D. 12/19/2024 12:[address] 12/19/24 12:06 CT SCAN OF THE BRAIN WITHOUT IV CONTRAST CLINICAL HISTORY: Stroke. COMPARISON STUDY: Head CT November 30, 2024. MRI of the brain December 01, 2024. TECHNIQUE: Unenhanced axial CT scan of the brain was performed from the vertex to the skull base. A dose lowering technique was utilized adhering to the principles of ALARA. FINDINGS: Brain parenchyma: No acute intracranial hemorrhage, midline shift or mass effect is present. Torres-white matter differentiation is preserved. There are no extra- axial fluid collections. There are no findings to suggest acute dural sinus thrombosis or acute territorial infarct. White matter hypodensities are unchanged and favor small vessel disease. Ventricles, sulci, cisterns: There is no hydrocephalus. The basal cisterns are patent. Calvarium: Unremarkable. Sinuses and mastoids: The visualized paranasal sinuses are clear. The mastoid air cells are well pneumatized. Orbits: The bony orbits are grossly intact. IMPRESSION: No acute intracranial findings. ACT 112: Negative or not required by law. Electronically signed by: Valentino Kaur M.D. 12/19/2024 12:42 PM Head CTA 12/19/24 12:06 CT angio head w con CLINICAL HISTORY: neuro deficit, acute stroke suspected. COMPARISON STUDY: CT scan earlier today TECHNIQUE: Unenhanced axial CT scan of the brain is performed. Subsequently, following the IV administration of 115 cc of Optiray, CT angiogram of the brain was performed from the skull base to the vertex. Images are reviewed in the axial, sagittal, and coronal planes. 3-D MIPS images are created and assessed. IV contrast was administered without complication. All measurements were obtained according to NASCET criteria. A dose lowering technique was utilized adhering to the principles of ALARA. FINDINGS: Right vertebral artery is dominant and the left vertebral artery is diminutive, anatomic variant. Basilar artery is widely patent. Distal internal carotid arteries are widely patent. Anterior, middle, and posterior cerebral arteries are patent bilaterally. Cerebral venous sinuses opacify normally. IMPRESSION: No significant arterial narrowing or occlusion seen at the brain. ACT 112: Negative or not required by law. The above report was generated using voice recognition software. It may contain grammatical, syntax or spelling errors. Electronically signed by: Hiram Cordova M.D. 12/19/2024 12:46 PM Neck CTA 12/19/24 12:06 CT angio neck with con CLINICAL HISTORY: 79 years-old Female with neuro deficit, acute stroke suspected. Acute stroke like symptoms COMPARISON STUDY: CTA head of same day, brain MRI 12/21 TECHNIQUE: Following the IV administration of 115 mL of Optiray, CT angiogram of the neck was performed from the aortic arch to the skull base. Images are reviewed in the axial, sagittal, and coronal planes. 3-D MIPS images are created and assessed. IV contrast was administered without complication. All measurements were calculated based on NASCET criteria. A dose lowering technique was utilized adhering to the principles of ALARA. CT DOSE: 1084.58 mGy.cm FINDINGS: Atherosclerosis of the thoracic aortic arch. Patency of the innominate and imaged subclavian arteries. The common carotid arteries are patent. There is severe atherosclerosis of the right carotid bulb which causes 60% stenosis on image 218 series 7. The right ICA is patent. Atherosclerosis of the left carotid bulb causes less than 50% stenosis. Dominant right vertebral artery demonstrates multifocal moderate to high-grade stenosis within the V2 segment secondary to uncovertebral hypertrophy and facet arthrosis of the cervical spine. High-grade stenosis at the origin of the left vertebral artery. Mild multifocal stenoses of the left vertebral artery V2 segment. Patent basilar artery. CTA head dictated separately. The lung apices appear clear. Unremarkable soft tissues. Multilevel degenerative changes of the spine which are moderate to advanced. IMPRESSION: 1. Prominent atherosclerosis of the right carotid bulb causes 60% stenosis of the proximal cervical segment right ICA. 2. Dominant right vertebral artery demonstrates multifocal moderate to high- grade stenosis within the V2 segment secondary to degenerative changes of the cervical spine. 3. High-grade stenosis is present at the origin of the developmentally diminutive left vertebral artery. ACT 112: Negative or not required by law. The above report was generated using voice recognition software. It may contain grammatical, syntax or spelling errors. Electronically signed by: Steven Napoles M.D. 12/19/2024 12:50 PM Supervising Physician Co-Signing Physician Notes I have seen and discussed the case with the collaborating advanced practitioner. I agree with the above H&P. I have reviewed and confirmed the patients medical history, the findings on physical examination, and the patients diagnosis and treatment plan with Jose Antonio CAT and agree with the information documented. In short, Ms. Hoffmann is an 79 year old woman with history of nonocclusive CAD, HTN and other medical conditions admitted for presyncope. Patient reports episodes of chest tightness, weakness since discharge. Patient went to pcp who transitioned patient from enalapril back to benazepril. Patient states while at home she noted today she felt dizzy and warm, with numbness and tingling her hands, then laid down on the couch. Her family found her a "bit spaced out" and her blood pressure at that time was 110 SBP Patient reports a chest pain that is in the left breast, like a "knot pulling from side to side." Patient denies active chest pain on exam, recent or current palpitations or other concerns. GENERAL APPEARANCE: AxOx4, no acute distress. HEENT: NC, AT. MMM. EOMI, clear conjunctiva, oropharynx clear. NECK: Supple without lymphadenopathy. No stiffness or restricted ROM. no symptoms recreated on exam HEART: Normal rate and regular rhythm, normal S1/S1, no m/r/g LUNGS: CTAB, moving air well. No crackles or wheezes are heard. ABDOMEN: Soft, nontender, nondistended with good bowel sounds heard. BACK: No CVAT, no obvious deformity. EXTREMITIES: Without cyanosis, clubbing or edema. NEUROLOGICAL: Grossly nonfocal. Alert and oriented, moving all 4 extremities. CN not formally tested but appear grossly intact. Skin: Warm and dry without any rash. CTA with IMPRESSION: 1. Prominent atherosclerosis of the right carotid bulb causes 60% stenosis of the proximal cervical segment right ICA. 2. Dominant right vertebral artery demonstrates multifocal moderate to high- grade stenosis within the V2 segment secondary to degenerative changes of the cervical spine. 3. High-grade stenosis is present at the origin of the developmentally diminutive left vertebral artery. #Presyncope seemingly vasovagal/orthostatic episode reported, poor historian recent stroke and cardiac work up unrevealing CTA neck/head with findings as above Per FAY discussion with Dr. Yang, less like contributory suspect perhaps orthostasis iso of above, versus pain from DJD looking forward while on tablet -Orthostats -Trend BP (multiple medication changes) #Hyponatremia perhaps related to presenting event follow up osmo labs and urine #Atypical chest pain--cervical angina v prior surgical intervention 2/2 cancer v underlying CAD #Left breast cancer s/p surgery/radiation trop negative, EKG with NSR, EF 60-65% on recent echo with LVH low suspicion for ACS question if pain sensation is more MSK iso DJD v prior surgical intervention can consider orthospine v pain management if symptoms persist, v low dose gabapentin for radicular like pain -no symptoms on time of exam therefore will monitor I spent a total of 15 minutes coordinating, documenting, and providing care for this patient excluding time spent in the performance of separately billed services. All of the aforementioned completed outside of collaborating with the assigned advanced practitioner for a full treatment plan. I have reviewed the advanced practitioner's documentation, and I agree with, and take responsibility for the plan of care
--- NOTE | 2024-12-19 16:19 | Electrocardiogram Report ---
Test Reason : Blood Pressure : */* mmHG Vent. Rate : 70 BPM Atrial Rate : 70 BPM P-R Int : 160 ms QRS Dur : 94 ms QT Int : 426 ms P-R-T Axes : 57 -13 42 degrees QTcB Int : 460 ms Normal sinus rhythm Moderate voltage criteria for LVH, may be normal variant ( R in aVL ) Borderline ECG When compared with ECG of 30-Nov-2024 22:20, No significant change was found Confirmed by Adeel Prado ([id number]) on 12/19/2024 4:19:20 PM Referred By: REFERRED SELF Confirmed By: Adeel Prado
[2024-12-19 16:57] LABS: Appearance Urine Clear (Clear); Bilirubin Urine Negative (Negative); Blood Urine Negative (Negative); Color Urine Yellow; Glucose Urine UA Negative (Negative); Ketones Urine Negative (Negative); Leukocyte Esterase Urine Negative (Negative); Nitrite Urine Negative (Negative); Protein Urine Negative (Negative); Specific Gravity Urine 1.025 (1.000-1.030); Urobilinogen Urine Negative (Negative); pH Urine 8.5 (4.5-7.5)
[2024-12-20 05:56] LABS: Hematocrit (blood only) 38.6 % (37.0-47.0); Hemoglobin 12.6 g/dl (12.0-16.0); Mean Corpuscular Hemoglobin 29.2 pg (25.0-34.0); Mean Corpuscular Hgb Conc 32.6 g/dL (32.0-36.0); Mean Corpuscular Volume 89.6 fL (80.0-100.0); Mean Platelet Volume 9.1 fL (9.4-12.4); Platelet Count 311 K/uL (130-400); RDW Coefficient of Variation 12.9 % (11.5-14.5); RDW Standard Deviation 42.6 fL (36.4-46.3); Red Blood Count 4.31 M/uL (4.20-5.40); White Blood Count 5.73 K/ul (4.8-10.8)
[2024-12-20 06:18] LABS: BUN Creatinine Ratio 18.3 (10-20); Calcium 10.4 mg/dl (8.6-10.3); Chol HDL Ratio 5.3 (0-5); Creatinine Clr Calc Pharmacy 38.6 ml/min; Potassium 4.2 mmol/L (3.5-5.1)
[2024-12-20 08:48] LABS: Estimated Average Glucose 108 mg/dl; Hemoglobin A1C 5.4 % (4.5-5.6)
--- NOTE | 2024-12-20 12:02 | Hospitalist Progress Note ---
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 Recent admission 12/01/2024-12/03/2024 for hypertensive crisis with BP's at that time 200s over 100s and patient had reported dizziness and headache and her carvedilol was discontinued and labetalol 100 mg twice daily started, and benazepril discontinued and was started on enalapril [address] Head: no acute intracranial CTA Head: No significant arterial narrowing or occlusion seen at the brain. CTA Neck: 1. Prominent atherosclerosis of the right carotid bulb causes 60% stenosis of the proximal cervical segment right ICA. 2. Dominant right vertebral artery demonstrates multifocal moderate to high-grade stenosis within the V2 segment secondary to degenerative changes of the cervical spine. 3. High-grade stenosis is present at the origin of the developmentally diminutive left vertebral artery. CXR: no acute findings 12/01/24 Brain MRI: No evidence of acute intracranial pathology. There was concern for spinal canal stenosis at C2 with abnormal CSF signal anterior and posterior to the cord, which may represent artifact are blood. 12/02/24 MRI c-spine: No acute process within the cervical spine by MRI. The abnormality the C2 level on MRI of December 01, 2024 is due to chronic degenerative changes, as described above. Moderate central canal narrowing at this level. Moderate to severe multilevel facet arthrosis and degenerative disc disease within the cervical spine. Mild to moderate central canal stenosis at several levels in severe neural foraminal stenosis. No cervical spine fractures. No suspicious marrow replacement. No definite cervical cord signal abnormality. Exam mildly compromised by motion artifact. 12/02/24 Renal US: No sonographic evidence for renal artery stenosis. 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 -will give 500 cc bolus and recheck orthostats -recheck TSH, check renal doppler for renal artery stenosis -Continue home aspirin, ezetimibe, fenofibrate, home BP's meds (2) HTN (hypertension): Plan: -see above for plan (3) HLD (hyperlipidemia): Plan: Intolerant to statins Continue home ezetimibe, fenofibrate (4) Breast cancer: Plan: Left breast CA s/p partial mastectomy, radiation I spent a total of 50 minutes in direct patient care, including [id number] time with the patient and/or family, reviewing medical records, ordering and reviewing diagnostic tests, and coordinating care with other healthcare providers. This time includes: history taking, physical examination, medical decision making, counseling, ECG interpretation, imaging interpretation, lab interpretation, orders, and education, excluding time spent in the performance of separately billed services. Admission and Anticipated Discharge Date Admission Date: December 19, 2024 Subjective Patient seen and examined at bedside. Symptoms have resolved at this time, patient feels at baseline. Unclear cause of symptoms, states had posterior headache that spread down body. Did not lose conscioussness, then became altered. No weakness on either side, cognitition intact. Per patient during incident BP was 90s/50s, normal for her is 130s-170s systolic. Review of Systems Review of Systems: CONSTITUTIONAL: Patient denies fevers, chills, sweats and weight changes. EYES: Patient denies any visual symptoms. EARS, NOSE, AND THROAT: No difficulties with hearing. No symptoms of rhinitis or sore throat. CARDIOVASCULAR: Patient denies chest pains, palpitations, orthopnea and paroxysmal nocturnal dyspnea. RESPIRATORY: No dyspnea on exertion, no wheezing or cough. GI: No nausea, vomiting, diarrhea, constipation, abdominal pain, hematochezia or melena. : No urinary hesitancy or dribbling. No nocturia or urinary frequency. No abnormal urethral discharge. MUSCULOSKELETAL: No myalgias or arthralgias. NEUROLOGIC: No chronic headaches, no seizures. Patient denies numbness, tingling or weakness. PSYCHIATRIC: Patient denies problems with mood disturbance. No problems with anxiety. ENDOCRINE: No excessive urination or excessive thirst. DERMATOLOGIC: Patient denies any rashes or skin changes. Physical Exam Physical Exam: Gen: A&O 3 NAD HEENT: NCAT, EOMI, not icteric. External ears normal. No rhinorrhea. Moist mucous membranes. Neck: Supple, full range of motion, no observable masses, No meningeal sign. Lungs: No Respiratory distress. CV: RRR, no edema. Abdomen: Soft, nondistended, No rebound tenderness. MSK: No joint swelling, no redness. Skin: No rashes, petechiae, lesions. Normal color per patient. Neuro: Normal Gait, Grossly intact. Psych: Appropriate for situation. Results & Data Results & Data Vital Signs (Past 12 Hours) Vital Signs Temp Pulse Pulse Resp BP Pulse Ox O2 Del Method 12/20/24 11:07 37.0 C 78 18 155/78 H 94 Room Air 12/20/24 09:55 74 12/20/24 07:34 36.6 C 69 20 151/74 H 96 Room Air 12/20/24 02:58 36.6 C 71 15 128/72 97 Room Air Laboratory Results -personally reviewed, very mild hyponatremia noted, creatinine around baseline Medications Administered Enoxaparin Sodium (Enoxaparin Inj 40 Mg/0.4 Ml Syr) 40 mg SQ Q24H MEHRDAD Stop: 01/18/25 17:29 Last Admin: 12/19/24 17:52 Dose: 40 mg Documented By: EDMUNDO
[2024-12-20 13:04] LABS: Thyroid Stimulating Hormone 3.473 uIu/ml (0.300-4.500)
[2024-12-20 22:04] VITALS: O2SAT 96
[2024-12-21 05:49] LABS: Hematocrit (blood only) 37.3 % (37.0-47.0); Hemoglobin 12.6 g/dl (12.0-16.0); Mean Corpuscular Hemoglobin 29.9 pg (25.0-34.0); Mean Corpuscular Hgb Conc 33.8 g/dL (32.0-36.0); Mean Corpuscular Volume 88.6 fL (80.0-100.0); Platelet Count 276 K/uL (130-400); RDW Coefficient of Variation 12.8 % (11.5-14.5); RDW Standard Deviation 41.5 fL (36.4-46.3); Red Blood Count 4.21 M/uL (4.20-5.40); White Blood Count 5.46 K/ul (4.8-10.8)
[2024-12-21 06:03] LABS: BUN Creatinine Ratio 24.4 (10-20); Calcium 9.9 mg/dl (8.6-10.3); Creatinine Clr Calc Pharmacy 49.3 ml/min; Magnesium 2.2 mg/dl (1.7-2.4); Phosphorus 3.9 mg/dl (2.5-4.9)
[2024-12-21 07:23] VITALS: TEMP 98.2
--- NOTE | 2024-12-21 09:28 | Electrocardiogram Report ---
Test Reason : Blood Pressure : */* mmHG Vent. Rate : 73 BPM Atrial Rate : 73 BPM P-R Int : 154 ms QRS Dur : 90 ms QT Int : 438 ms P-R-T Axes : 72 -8 48 degrees QTcB Int : 482 ms Normal sinus rhythm Normal ECG When compared with ECG of 19-Dec-2024 12:46, No significant change was found Confirmed by Leonor Chapa ([id number]) on 12/21/2024 9:27:50 AM Referred By: REFERRED SELF Confirmed By: Leonor Chapa
[2024-12-21 11:33] VITALS: RESP 18
--- NOTE | 2024-12-21 12:43 | Discharge Summary ---
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 Recent admission 12/01/2024-12/03/2024 for hypertensive crisis with BP's at that time 200s over 100s and patient had reported dizziness and headache and her carvedilol was discontinued and labetalol 100 mg twice daily started, and benazepril discontinued and was started on enalapril [address] Head: no acute intracranial CTA Head: No significant arterial narrowing or occlusion seen at the brain. CTA Neck: 1. Prominent atherosclerosis of the right carotid bulb causes 60% stenosis of the proximal cervical segment right ICA. 2. Dominant right vertebral artery demonstrates multifocal moderate to high-grade stenosis within the V2 segment secondary to degenerative changes of the cervical spine. 3. High-grade stenosis is present at the origin of the developmentally diminutive left vertebral artery. CXR: no acute findings 12/01/24 Brain MRI: No evidence of acute intracranial pathology. There was concern for spinal canal stenosis at C2 with abnormal CSF signal anterior and posterior to the cord, which may represent artifact are blood. 12/02/24 MRI c-spine: No acute process within the cervical spine by MRI. The abnormality the C2 level on MRI of December 01, 2024 is due to chronic degenerative changes, as described above. Moderate central canal narrowing at this level. Moderate to severe multilevel facet arthrosis and degenerative disc disease within the cervical spine. Mild to moderate central canal stenosis at several levels in severe neural foraminal stenosis. No cervical spine fractures. No suspicious marrow replacement. No definite cervical cord signal abnormality. Exam mildly compromised by motion artifact. 12/02/24 Renal US: No sonographic evidence for renal artery stenosis. 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 -will give 500 cc bolus and recheck orthostats -recheck TSH, check renal doppler for renal artery stenosis -Continue home aspirin, ezetimibe, fenofibrate, home BP's meds (2) HTN (hypertension): -see above for plan (3) HLD (hyperlipidemia): Intolerant to statins Continue home ezetimibe, fenofibrate (4) Breast cancer: Left breast CA s/p partial mastectomy, radiation Notes For Next Care Provider Patient is 79-year-old female with PMH HTN, HLD, 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 On labetalol and nifedipine for blood pressure at home. Had episode of posterior headache, lightheadedness, presyncope. BP at time 90s/50s. Admitted to medicine for further workup. On medicine, home BP meds stopped, patient observed. Started on losartan 12.5 mg bid. Added amlodipine 5mg with improvement. Observed overnight, patient BP levels within acceptable limits. Hypertension likely 2/2 need for high perfusion pressure given high grade vertebral stenosis, relative hypotension likely leading to presyncope due to lack of brain perfusion. On 12/21/2024 patient medically stable for discharge home. 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 Per inpatient chart review recent [facility] hospital admission 12/01/2024-12/03/2024 for hypertensive crisis with BP's at that time 200s over 100s and patient had reported dizziness and headache and her medications were adjusted. 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 She reports that this morning feeling baseline ate breakfast, took her am medications and did laundry and dishes and was not having symptoms at the time. She states around 10:45AM sitting playing on ipad and had posterior MAJOR, blurry vision, lightheaded with then numbness in face, bilateral upper and lower extremities and entire body. She states she checked her SBP 110. States her head felt "fuzzy like cotton" and she felt like she was going to fall so she went to couch to rest supine. She called her daughter and granddaughter to come check on her. States she was lying down and was "screaming out" but felt like she couldn't stop screaming. Daughter states when she got there patient was lying on couch and was staring off but didn't seem to be responding to her, so she shook patient and then patient seemed more responsive. Denies any noted tonic clonic movements. Denies loss control of bowel or bladder. Denies any noted facial drooping or speech changes. Granddaughter took manual BP when she arrived and BP was 138/58. Patient reports home SBP's have been around 160 with automatic BP cuff. Patient states has been having intermittent episodes of "head feeling funny like cotton and eyes feel funny", but denies diplopia, vision loss, blurry vision, eye pain. initially thought this was secondary to her elevated BP as it started around the time of most recent admission but symptoms have continued intermittently. Reports having intermittent episodes of chest tightness and chest "pulling sensation" to left side of chest that sometimes has associated SOB. Denies noted palpitations, heart racing, nausea or vomiting. Typically this CP occurs at rest but can also occur with activity. has been not doing a lot of house work as she was concerned with her elevated BP and has been having overall fatigue. She feels she has been eating and drinking well. Per outpatient PCP note on 12/10/24 and she had reported intermittent CP/Chest tightness, fatigue, decreased appetite that patient thinks are related to her BP med change and PCP discontinued the enalapril and put back on benazepril 20mg BID and stress test was ordered. Denies fever/chills, diaphoresis, N/V/D/C, orthopnea, cough, sore throat, choking, otalgia, rhinorrhea, abdominal pain, extremity weakness, extremity edema, rashes, urinary symptoms, melena, hematochezia. During ER course her lightheaded sensation, "fuzzy head, fuzzy eyes" sensation as well as paresthesias have resolved. During ER course she developed chest "pulling and tightness" sensation to left chest with associated SOB that lasted several minutes and self resolved. Her repeat EKG was normal sinus rhythm without acute ST changes per my interpretation. Discharge Exam Gen: A&O 3 NAD HEENT: NCAT, EOMI, not icteric. External ears normal. No rhinorrhea. Moist mucous membranes. Neck: Supple, full range of motion, no observable masses, No meningeal sign. Lungs: No Respiratory distress. CV: RRR, no edema. Abdomen: Soft, nondistended, No rebound tenderness. MSK: No joint swelling, no redness. Skin: No rashes, petechiae, lesions. Normal color per patient. Neuro: Normal Gait, Grossly intact. Psych: Appropriate for situation. Updated Medication List Medication Instructions Recorded Confirmed Type ascorbate calcium (vitamin C) 500 1,000 mg PO DAILY 12/01/24 12/19/24 History mg capsule coenzyme Q10 100 mg capsule 100 mg PO DAILY 12/01/24 12/19/24 History (CoQ-10) cyanocobalamin (vitamin B-12) 1,000 mcg PO DAILY 12/01/24 12/19/24 History 1,000 mcg tablet (Vitamin B-12) ezetimibe 10 mg tablet 10 mg PO DAILY 12/01/24 12/19/24 History fenofibrate nanocrystallized 145 145 mg PO DAILY 12/01/24 12/19/24 History mg tablet fluticasone furoate 100 1 inh inhalation DAILY 12/01/24 12/19/24 History mcg-vilanterol 25 mcg/dose inhalation powder (Breo Ellipta) glucosamine-chondroitin 250 mg-200 1 tab PO PM 12/01/24 12/19/24 History mg tablet (Osteo Bi-Flex) nifedipine 60 mg tablet,extended 60 mg PO DAILY 12/01/24 12/19/24 History release pantoprazole 40 mg tablet,delayed 40 mg PO DAILY 12/01/24 12/19/24 History release sertraline 100 mg tablet 150 mg PO DAILY 12/01/24 12/19/24 History labetalol 100 mg tablet 100 mg PO BID #60 tabs 12/03/24 12/19/24 Rx aspirin 81 mg tablet,delayed 81 mg PO PM 12/19/24 12/19/24 History release benazepril 20 mg tablet 20 mg PO BID 12/19/24 12/19/24 History amlodipine 5 mg tablet (Norvasc) 5 mg PO QAM 30 days #30 tabs 12/21/24 Rx losartan 25 mg tablet 12.5 mg (1/2 x 25 mg) PO BID #30 12/21/24 Rx tabs Hospital Stay Data Consultations 12/19/24 13:52 ED Decision to Admit Stat Diagnostic Imagining Performed 12/19/24 12:06 CT angio head w con Stat CT angio neck with con Stat CT head/brain wo con Stat Pending Results Patient Have Any Pending Studies at Discharge: No Discharge Instructions Given to Patient (Per Discharging Provider) 1. Please take medications as prescribed. 2. Please take blood pressure at home 3x a day, and during any further episodes. Report to PCP in 2 weeks. 3. Please follow up with PCP and vascular surgery. Total Time Total Time Spent Total Time Spent (In Minutes): I spent a total of 45 minutes in direct patient care, including [id number] time with the patient and/or family, reviewing medical records, ordering and reviewing diagnostic tests, and coordinating care with other healthcare p jarred. This time includes: history taking, physical examination, medical decision making, counseling, ECG interpretation, imaging interpretation, lab interpretation, orders, and education, excluding time spent in the performance of separately billed services.
[2024-12-21 13:57] VITALS: BP 192/77
[2024-12-21 15:54] VITALS: PULSE 98
== END 2024-12-21 16:20 | disposition home or self-care (01) ==
LOC: ED 12:11 → 2N 14:59 → SUATTDRO 14:59 → 2N 16:51